=== PATIENT | female | born 1950 | race Caucasian/White ===

== ENCOUNTER → 2017-06-21 08:08 | Outpatient (POV) | payer MEDICARE, OTHER, SELFPAY | PROVIDERS: Family Provider Emergency Medicine; PCP Nurse Practitioner Family; Visit Provider Specialist | DX: G56.02 Carpal tunnel syndrome, left upper limb (principal) | CPT/HCPCS: 95886; 95908 ==

== ENCOUNTER 2017-07-05 19:25 | Inpatient (IN) | payer OTHER, MEDICARE, SELFPAY ==
[2017-07-05 19:29] VITALS: BP 133/70; PULSE 77; RESP 18; TEMP 36.9; O2SAT 81; BMI 26.4
--- NOTE | 2017-07-05 19:51 | XR_ITS ---
XR chest 2V HISTORY: ITS.REASON: FEVER , cough, congestion, smoker ORDERING PHYSICIAN: Emeka Dill MD PATIENT AGE: 67 years COMPARISON: 11/12/2016 FINDINGS: Unremarkable heart size. Cardiac pacemaker device remains in place. There is chronic coarsening of the bronchovascular markings which are somewhat more prominent compared to 11/12/2016 and could be due to an element of underlying CHF. In addition, there is increased density in the right lung base consistent with an area of infiltrate/pneumonia. There are small bilateral pleural effusions. No acute bony anomalies. There is mild kyphosis of the upper thoracic spine. IMPRESSION: 1. Right lower lobe pneumonia. 2. COPD with chronic changes with suspected superimposed CHF.
[2017-07-05 20:20] VITALS: PULSE 70
[2017-07-05 20:32] LABS: Basophils # 0.1 K/mm3 (0-0.2); Basophils % 0.3 % (0.1-2.0); Eosinophils # 0.4 K/mm3 (0.0-0.4); Eosinophils % 2.1 % (0.1-12.0); Hematocrit 42.9 % (37.0-47.0); Hemoglobin 13.2 g/dL (12.2-16.2); Lymphocytes # 1.5 K/mm3 (0.7-4.5); Mean Corpuscular HGB Conc 30.8 g/dL (31.8-35.4); Mean Corpuscular Hemoglobin 25.2 pg (27.0-31.2); Mean Corpuscular Volume 81.8 fl (81-99); Mean Platelet Volume 8.9 fl (7.4-10.4); Monocytes # 1.2 K/mm3 (0.1-1.0); Monocytes % 6.3 % (1.7-9.3); Neutrophils # 15.6 K/mm3 (1.8-7.8); Neutrophils % 83.4 % (37.0-80.0); Platelet Count 289 K/mm3 (142-424); Red Blood Count 5.25 M/mm3 (4.20-5.40); Red Cell Distribution Width 14.8 % (11.5-17.5); White Blood Count 18.7 K/mm3 (4.8-10.8)
[2017-07-05 20:35] LABS: MANUAL DIFFERENTIAL MANUAL DIFFERENTIAL (MANUAL DIFF)
--- NOTE | 2017-07-05 20:43 | PC.NURSE ---
RN gave neb. tx to pt.
[2017-07-05 20:58] LABS: Microscopic, Urine URINE MICROSCOPIC (MICROSCOPIC)
[2017-07-05 21:00] LABS: Alanine Aminotransferase 15 U/L (12-78); Albumin Level 2.4 gm/dL (3.4-5.0); Albumin/Globulin Ratio 0.5 (1.1-1.8); Alkaline Phosphatase 165 U/L (46-116); Anion Gap 10.7 mEq/L (5-15); Bilirubin,Total 0.3 mg/dL (0.2-1.0); Blood Urea Nitrogen 14 mg/dL (7-18); CKMB Relative Index 0.5 U/L (0-4.0); Calcium 8.7 mg/dL (8.5-10.1); Carbon Dioxide 30 mmol/L (21.0-32.0); Chloride 97 mmol/L (98-107); Creatine Kinase 190 U/L (26-192); Creatine Kinase MB 0.9 mg/ml (0.0-3.6); Creatinine Clearance Estimated 53 mL/min (0-300); Creatinine,Serum 0.98 mg/dL (0.55-1.02); Estimated Glomerular Filt Rate 57 ml/min (>60); GFR (African American) 69 ML/MIN (>60); Globulin 4.9 gm/dl (1.3-3.2); Glucose 134 mg/dL (74-106); Sodium 134 mmol/L (136-145); Total Protein,Serum 7.3 gm/dL (6.4-8.2); Troponin I < 0.02 ng/ml (0.00-0.06)
[2017-07-05 21:00] LABS: Appearance,Urine CLEAR (Clear); Bilirubin,Urine 1+ (Negative); Blood, Urine Negative (Negative); Color,Urine YELLOW (Yellow); Glucose,Urine (UA) Negative (Negative); Ketones,Urine Negative (Negative); Leukocyte Esterase,Urine Negative (Negative); Nitrate,Urine Negative (Negative); PH,Urine 5.5 (5.0-8.5); Protein,Urine TRACE (Negative); Urobilinogen,Urine 0.2 EU/dl (0.2)
[2017-07-05 21:04] LABS: Aspartate Amino Transferase 20 U/L (15-37); Potassium 3.7 mmoL/L (3.5-5.1)
[2017-07-05 21:08] LABS: Bacteria,Urine 2+ /lpf; Mucus,Urine 1+ /lpf
--- NOTE | 2017-07-05 21:08 | HMH.EDFEV ---
ED Disposition Clinical Impression: Community acquired pneumonia Qualifiers: Laterality: right Lung location: lower lobe of lung Qualified Code(s): J18.1 - Lobar pneumonia, unspecified organism COPD (chronic obstructive pulmonary disease) Qualifiers: COPD type: COPD with acute exacerbation Qualified Code(s): J44.1 - Chronic obstructive pulmonary disease with (acute) exacerbation Disposition: Admitted as Observation Condition on Discharge: Good Referrals: Efe Elizabeth APRN [Primary Care Provider] - - Critical Care Critical Care Time: No Attestation: On 07/05/17, the high probability of a clinically significant, sudden or life threatening deterioration of the following system(s) required my full and direct attention, intervention and personal management. The time I documented below is in addition to time spent performing reported procedures but includes the following listed in this critical care notation. Medical Decision Making - Medical Records Medical records reviewed: Yes: I reviewed the patient's medical records. Vital Signs: 07/05/17 19:29 07/05/17 20:20 Temperature 98.5 F Temperature Source Oral Pulse Rate 70 Pulse Rate [Right Brachial] 77 Respiratory Rate 18 Blood Pressure [Right Arm] 133/70 Blood Pressure Mean [Right Arm] 91 02 Sat by Pulse Oximetry 81 L Oxygen Delivery Method Room Air - Lab Data Lab results reviewed: Yes: I reviewed the patient's lab results. Lab Results 07/05/17 20:22: WBC 18.7 H, RBC 5.25, Hgb 13.2, Hct 42.9, MCV 81.8, MCH 25.2 L, MCHC 30.8 L, RDW 14.8, Plt Count 289, MPV 8.9, Neut % (Auto) 83.4 H, Lymph % (Auto) 8.0 L, [place] % (Auto) 6.3, Eos % (Auto) 2.1, Baso % (Auto) 0.3, Neut # (Auto) 15.6 H, Lymph # (Auto) 1.5, [place] # (Auto) 1.2 H, Eos # (Auto) 0.4, Baso # (Auto) 0.1 07/05/17 20:22: Sodium 134 L, Potassium 3.7, Chloride 97 L, Carbon Dioxide 30, Anion Gap 10.7, BUN 14, Creatinine 0.98, Estimated Creat Clear 53, Estimated GFR 57 L, Est GFR ( Amer) 69, Glucose 134 H, Calcium 8.7, Total Bilirubin 0.3, AST 20, ALT 15, Alkaline Phosphatase 165 H, Total Creatine Kinase 190, CK-MB (CK-2) 0.9, CK-MB (CK-2) Rel Index 0.5, Troponin I < 0.02, Total Protein 7.3, Albumin 2.4 L, Globulin 4.9 H, Albumin/Globulin Ratio 0.5 L 07/05/17 20:22: Lactic Acid 1.0 07/05/17 20:22: Influenza Type A Ag Negative, Influenza Type B Ag Negative 07/05/17 20:56: Urine Color Yellow, Urine Appearance Clear, Urine pH 5.5, Ur Specific [place] 1.020, Urine Protein Trace, Urine Glucose (UA) Negative, Urine Ketones Negative, Urine Blood Negative, Urine Nitrate Negative, Urine Bilirubin 1+ A, Urine Urobilinogen 0.2, Ur Leukocyte Esterase Negative, Urine RBC None, Urine WBC 3-5, Ur Squamous Epith Cells 10-20, Urine Bacteria 2+, Hyaline Casts 10-20, Urine Mucus 1+ Result diagrams: 07/05/17 20:22 07/05/17 20:22 Orders (Tests/Meds): ED MEDICATIONS Discontinued Medications Generic Name Dose Route Start Last Admin Trade Name Freq PRN Reason Stop Dose Admin Albuterol/Ipratropium 3 ml 07/05/17 19:51 07/05/17 20:21 Duoneb 3ml Neb IH 07/05/17 19:52 3 ml ONCE ONE Administration Sodium Chloride 1,000 mls @ 999 mls/hr 07/05/17 20:00 07/05/17 20:22 Sod Chlor 0.9% 1000ml Bag IV 07/05/17 21:00 999 mls/hr .Q1H1M GENNARO Administration ORDERS Category Date Time Status XR chest 2V Stat Exams 07/05/17 19:51 Taken Complete Blood Count Auto Diff Stat Lab 07/05/17 20:22 Results Urinalysis and Microscopic Stat Lab 07/05/17 20:56 Results Blood Culture Stat Micro 07/05/17 20:22 Received Sputum Culture & Gram Stain Stat Micro 07/05/17 20:25 Ordered ECG Request by /Nse Stat Y 07/05/17 19:51 Ordered - Radiology Data #1 Image(s): Chest Image Reviewed: Yes I reviewed the patient's radiology image Preliminary Findings: Abnormal (rt lower changes ) - ECG Data Tracing #1 I reviewed this ECG and interpreted as documented below: Normal Sinus Rhythm: Ye
--- NOTE | 2017-07-05 21:13 | ED_ITS ---
ED Disposition Clinical Impression: Community acquired pneumonia Qualifiers: Laterality: right Lung location: lower lobe of lung Qualified Code(s): J18.1 - Lobar pneumonia, unspecified organism COPD (chronic obstructive pulmonary disease) Qualifiers: COPD type: COPD with acute exacerbation Qualified Code(s): J44.1 - Chronic obstructive pulmonary disease with (acute) exacerbation Disposition: Admitted as Observation Condition on Discharge: Good Referrals: Efe Elizabeth APRN [Primary Care Provider] - - Critical Care Critical Care Time: No Attestation: On 07/05/17, the high probability of a clinically significant, sudden or life threatening deterioration of the following system(s) required my full and direct attention, intervention and personal management. The time I documented below is in addition to time spent performing reported procedures but includes the following listed in this critical care notation. Medical Decision Making - Medical Records Medical records reviewed: Yes: I reviewed the patient's medical records. Vital Signs: 07/05/17 19:29 07/05/17 20:20 Temperature 98.5 F Temperature Source Oral Pulse Rate 70 Pulse Rate [Right Brachial] 77 Respiratory Rate 18 Blood Pressure [Right Arm] 133/70 Blood Pressure Mean [Right Arm] 91 02 Sat by Pulse Oximetry 81 L Oxygen Delivery Method Room Air - Lab Data Lab results reviewed: Yes: I reviewed the patient's lab results. Lab Results 07/05/17 20:22: WBC 18.7 H, RBC 5.25, Hgb 13.2, Hct 42.9, MCV 81.8, MCH 25.2 L, MCHC 30.8 L, RDW 14.8, Plt Count 289, MPV 8.9, Neut % (Auto) 83.4 H, Lymph % ( Auto) 8.0 L, [place] % (Auto) 6.3, Eos % (Auto) 2.1, Baso % (Auto) 0.3, Neut # ( Auto) 15.6 H, Lymph # (Auto) 1.5, [place] # (Auto) 1.2 H, Eos # (Auto) 0.4, Baso # (Auto) 0.1 07/05/17 20:22: Sodium 134 L, Potassium 3.7, Chloride 97 L, Carbon Dioxide 30, Anion Gap 10.7, BUN 14, Creatinine 0.98, Estimated Creat Clear 53, Estimated GFR 57 L, Est GFR ( Amer) 69, Glucose 134 H, Calcium 8.7, Total Bilirubin 0.3, AST 20, ALT 15, Alkaline Phosphatase 165 H, Total Creatine Kinase 190, CK-MB (CK-2) 0.9, CK-MB (CK-2) Rel Index 0.5, Troponin I < 0.02, Total Protein 7.3, Albumin 2.4 L, Globulin 4.9 H, Albumin/Globulin Ratio 0.5 L 07/05/17 20:22: Lactic Acid 1.0 07/05/17 20:22: Influenza Type A Ag Negative, Influenza Type B Ag Negative 07/05/17 20:56: Urine Color Yellow, Urine Appearance Clear, Urine pH 5.5, Ur Specific [place] 1.020, Urine Protein Trace, Urine Glucose (UA) Negative, Urine Ketones Negative, Urine Blood Negative, Urine Nitrate Negative, Urine Bilirubin 1+ A, Urine Urobilinogen 0.2, Ur Leukocyte Esterase Negative, Urine RBC None, Urine WBC 3-5, Ur Squamous Epith Cells 10-20, Urine Bacteria 2+, Hyaline Casts 10-20, Urine Mucus 1+ Result diagrams: 07/05/17 20:22 07/05/17 20:22 Orders (Tests/Meds): ED MEDICATIONS Discontinued Medications Generic Name Dose Route Start Last Admin Trade Name Freq PRN Reason Stop Dose Admin Albuterol/Ipratropium 3 ml 07/05/17 19:51 07/05/17 20:21 Duoneb 3ml Neb IH 07/05/17 19:52 3 ml ONCE ONE Administration Sodium Chloride 1,000 mls @ 999 mls/hr 07/05/17 20:00 07/05/17 20:22 Sod Chlor 0.9% 1000ml Bag IV 07/05/17 21:00 999 mls/hr .Q1H1M GENNARO Administration ORDERS Category Date Time Status XR chest 2V Stat Exams 07/05/17 19:51
--- NOTE | 2017-07-05 21:17 | PC.NURSE ---
to admit patient
[2017-07-05 21:37] VITALS: BMI 26.2
[2017-07-05 21:48] LABS: Adenovirus,PCR Not Detected (NotDetected); Bordetella Pertussis Not Detected (NotDetected); Chlamydophila Pneumoniae, PCR Not Detected (NotDetected); Coronavirus 229E Not Detected (NotDetected); Coronavirus NL63 Not Detected (NotDetected); Coronavirus OC43 Not Detected (NotDetected); Coronovirus HKU1,PCR Not Detected (NotDetected); Human Metapneumovirus Not Detected (NotDetected); Influenza A, PCR Not Detected (NotDetected); Influenza AH1, 2009 Not Detected (NotDetected); Influenza AH1, PCR Not Detected (NotDetected); Influenza AH3,PCR Not Detected (NotDetected); Influenza B, PCR Not Detected (NotDetected); Mycoplasma Pneumoniae, PCR Not Detected (NotDected); Parainfluenza 1, PCR Not Detected (NotDetected); Parainfluenza 2, PCR Not Detected (NotDetected); Parainfluenza 3, PCR Not Detected (NotDetected); Parainfluenza 4, PCR Not Detected (NotDetected); Respiratory Syncytial Virus Not Detected (NotDetected); Rhinovirus/Enterovirus Not Detected (NotDetected)
[2017-07-05 22:04] VITALS: BP 152/75; PULSE 76; RESP 18; TEMP 37.2; O2SAT 94
[2017-07-05 22:55] VITALS: O2SAT 89
[2017-07-05 23:02] LABS: Eosinophils % 1 % (0-3); Lymphocytes % 12 % (10-50); Monocytes % 6 % (2-9); Neutrophils % 81 % (42-76); Platelet Estimate Normal; Total Cells Counted 100
[2017-07-05 23:03] LABS: Anisocytosis 1+; Hypochromasia 1+
[2017-07-06] VITALS (8 sets, daily range): BP systolic 112–129; BP diastolic 47–72; PULSE 60–72; RESP 18–22; TEMP 36.4–36.7; O2SAT 92–96
--- NOTE | 2017-07-06 04:30 | PC.NURSE ---
PT NEW ADMIT AT 2200. 2L PER NC WITH NO REPORTED SOB. PT RECEIVING STEROIDS AND ABX. PT UP TO BSC WITH STANDBY ASSIST. OCCASSIONAL COUGH NOTED.
[2017-07-06 06:01] LABS: POC Glucose,Bedside 166 mg/dL (70-110)
[2017-07-06 07:11] LABS: Basophils % 0.1 % (0.1-2.0); Eosinophils % 0.2 % (0.1-12.0); Hematocrit 37.9 % (37.0-47.0); Lymphocytes # 1.1 K/mm3 (0.7-4.5); Lymphocytes % 8.2 K/mm3 (10-50); Mean Corpuscular Hemoglobin 24.8 pg (27.0-31.2); Mean Corpuscular Volume 82.8 fl (81-99); Monocytes # 0.3 K/mm3 (0.1-1.0); Monocytes % 2.3 % (1.7-9.3); Neutrophils # 11.5 K/mm3 (1.8-7.8); Neutrophils % 89.2 % (37.0-80.0); Platelet Count 273 K/mm3 (142-424); Red Blood Count 4.58 M/mm3 (4.20-5.40); Red Cell Distribution Width 14.7 % (11.5-17.5); White Blood Count 12.9 K/mm3 (4.8-10.8)
[2017-07-06 07:24] LABS: Hemoglobin 11.5 g/dL (12.2-16.2)
[2017-07-06 07:25] LABS: Anion Gap 5.7 mEq/L (5-15); Blood Urea Nitrogen 15 mg/dL (7-18); Carbon Dioxide 32 mmol/L (21.0-32.0); Chloride 102 mmol/L (98-107); Creatinine Clearance Estimated 53 mL/min (0-300); Estimated Glomerular Filt Rate 72 ml/min (>60); GFR (African American) 87 ML/MIN (>60); Glucose 170 mg/dL (74-106); MANUAL DIFFERENTIAL MANUAL DIFFERENTIAL (MANUAL DIFF); Potassium 4.7 mmoL/L (3.5-5.1); Sodium 135 mmol/L (136-145)
--- NOTE | 2017-07-06 07:33 | HMH.PHAVTE ---
[facility] Pharmacy VTE Monitoring - Patient Demographics Admission date: 07/05/17 Report Date: 07/06/17 Time: 07:33 Allergies/Adverse Reactions: Patient Allergies codeine [CODEINE] Allergy (Unknown, Verified 07/05/17 19:56) NA-NAUSEA/VOMITING diphenhydramine [DIPHENHYDRAMINE] Allergy (Unknown, Verified 07/05/17 19:56) I-RASH Iodinated Contrast Media - Oral and [IODINATED CONTRAST MEDIA - ORAL AND] Allergy (Unknown, Verified 07/05/17 19:56) Difficulty Breathing Penicillins [PENICILLINS] Allergy (Unknown, Verified 07/05/17 19:56) RASH, TERESITAEF MAGDALENE PER DR. POWERS Sulfa (Sulfonamide Antibiotics) [SULFA (SULFONAMIDE ANTIBIOTICS)] Allergy (Unknown, Verified 07/05/17 19:56) NA-NAUSEA/VOMITING acetaminophen [From Percocet] Allergy (Verified 07/05/17 19:56) Rash aspirin Allergy (Verified 07/05/17 19:56) Rash fluconazole [From Diflucan] Allergy (Verified 07/05/17 19:56) Rash oxycodone [From Percocet] Allergy (Verified 07/05/17 19:56) Rash zolmitriptan [From Zomig] Allergy (Verified 07/05/17 19:56) Rash Height: 1.52 m Weight: 60.781 kg Patient Problems: Current Active Problems Community acquired pneumonia (Acute) COPD (chronic obstructive pulmonary disease) (Acute) - VTE Risk Labs: VTE Related Lab Results Hgb 11.5 g/dL (12.2-16.2) L D 07/06/17 06:54 Hct 37.9 % (37.0-47.0) 07/06/17 06:54 Plt Count 273 K/mm3 (142-424) 07/06/17 06:54 BUN 15 mg/dL (7-18) 07/06/17 06:54 Creatinine 0.80 mg/dL (0.55-1.02) 07/06/17 06:54 Estimated Creat Clear 53 mL/min (0-300) 07/06/17 06:54 Was VTE Risk Assessment Performed: Yes VTE Score: 10 VTE Risk Level: Moderate Risk Clinical Trial Participant: No - Prophylaxis VTE Prophylaxis Ordered?: Yes Types of VTE Prophylaxis: TEDS Knee High Location of Applied Device: Bilateral Lower Extremeties
--- NOTE | 2017-07-06 08:19 | CA_ITS ---
PROCEDURE: 2-D M-mode and color Doppler study INDICATIONS FOR THE TEST: Chest pain COPD+ Heart Murmur+ Tobacco Smoking+ Palpitations+ Fatigue+ Syncope Edema+ Hypertension+Diabetes Mellitus+ Rheumatic Fever SOB+LÓPEZ Obesity Hyperlipidemia Family History HD Additional History CHF, pacemaker PATIENT INFORMATION HEIGHT: 60 WEIGHT: 134 GENDER: Female B/P: 124/47 2-D/M-MODE INTERPRETATION: 2-D MEASUREMENTS OBSERVED VALUES IN CMS Right Ventricular Dimension (RVDd) 2.0 Interventricular Septum (Thickness)(IVsd) 0.8 Left Ventricular Internal Dimensions(LVIDd) 4.7 Left Ventricular Posterior Wall (Thickness)(LVPWd) 0.8 Aortic Root 2.7 Aortic Cusp Separation 1.7 Left Atrial Dimensions (LAD) 3.6 2D 1. Left atrium is mildly enlarged, left ventricle is normal size, there is no concentric left ventricular hypertrophy, visually estimated ejection fraction 55% with no obvious regional wall motion abnormality. 2. The right atrium is mildly enlarged, right ventricle is normal size and contractility, there is a pacemaker lead seen in the right atrium and right ventricle. 3. The aortic valve is minimally thickened and fibrosed. 4. The mitral and tricuspid valvular grossly normal. 5. The pulmonic valve is poorly visualized. 6. No significant pericardial effusion noted. DOPPLER INTERROGATION: Doppler interrogation of the aortic, mitral and tricuspid valvular presence of mild mitral and tricuspid regurgitation, calculated right ventricular systolic pressure is 47 mmHg consistent with moderate pulmonary hypertension, grade 1 diastolic dysfunction seen with tissue Doppler evidence of raised left atrial pressure. CONCLUSION: 1. Mild biatrial enlargement, normal left ventricular size, visually estimated ejection fraction 55% with no obvious regional wall motion abnormality, grade 1 diastolic dysfunction seen with tissue Doppler evidence of raised left atrial pressure. 2. Mild mitral and tricuspid regurgitation, calculated right ventricular systolic pressure is 47 mmHg consistent with moderate pulmonary hypertension. 3. No significant pericardial effusion noted.
[2017-07-06 08:45] LABS: CKMB Relative Index 0.6 U/L (0-4.0); Creatine Kinase 78 U/L (26-192); Creatine Kinase MB 0.5 mg/ml (0.0-3.6); Troponin I < 0.02 ng/ml (0.00-0.06)
[2017-07-06 13:24] LABS: Lymphocytes % 5 % (10-50); Monocytes % 1 % (2-9); Neutrophils % 94 % (42-76); Platelet Estimate Normal; RBC Morphology Normal; Total Cells Counted 100
--- NOTE | 2017-07-06 13:56 | HMH.HP ---
*Admission Date: 07/05/17 *Chief complaint: sob *History of present illness: 67 yr old female presents to ed with c/o of sob and fever for one week. Pt reports hx of copd. Pt admitted for pneumonia and copd. [facility] History Medical History: Reports:: Anxiety, Arrhythmia, Congestive Heart Failure, Chronic Obstructive Pulmonary Disease (COPD), Coronary Artery Disease, Depression, Diabetes Mellitus Type 2, Heart Murmur, Hyperlipidemia, Hypertension, Internal Pacemaker, Palpitations, Peripheral Artery Disease, Peripheral Vascular Disease Denies:: Cancer, MRSA Other Medical History: Reports: Anemia, Arthritis, Cataracts, Hoarseness, Hormone Therapy, Sinus Problems Laterality Cases: Right: Carpal Tunnel Release, Bilateral: Other Other Surgeries: Yes: Cardiac Catheterization, Hysterectomy-Total, Pacemaker, Tubal Ligation, Other Amputation: No Fractures: No - *Social History Educational Level: Attended College Smoking Status: Current every day smoker Tobacco Type: cigarettes # Packs/Day (cigarettes): 1 #Yrs smoked (if former smoker): 36 Alcohol Intake: former Substance Use Type: denies use Occupational Status: disabled Housing: house Household Members: spouse, children - Psychiatric History Expresses thoughts of harming self/others: None Suicide Plan Description: No Plan Pschychiatric History:: Reports:: Anxiety, Depression *Family Hx:: Anemia, Asthma, Cancer, Coronary Artery Disease, Diabetes, Heart Attack, Hyperlipidemia, Hypertension, Kidney Disease, Stroke Review of Systems - Review of Systems Review of systems:: pertinent systems reviewed and negative unless documented below - Constitutional Reports body ache(s), Reports chills, Reports fever(s) - Eyes Denies change in vision - ENT Denies change in voice - *Cardiovascular Reports shortness of breath, Denies chest pain at rest, Denies chest pain with activity - *Respiratory Reports change in phlegm color, Reports chest congestion, Reports cough, Reports shortness of breath, Reports shortness of breath with activity - *Gastrointestinal Denies pain with swallowing - *Musculoskeletal Denies neck pain - *Neurologic Denies seizure-like activity - Psychiatric Denies lack of enjoyment - Endocrine Denies excessive sweating - Hematologic/Lymphatic Denies enlarged lymph nodes - Allergic/Immunologic Denies lip swelling Meds Home Medications Medication Instructions Recorded Confirmed Type albuterol sulfate HFA 90 2 puff INHALATION Q6H 05/05/17 07/05/17 History mcg/actuation aerosol inhaler aspirin 81 mg tablet,delayed 81 mg PO QDAY 05/05/17 07/05/17 History release conjugated estrogens 0.625 mg 0.625 mg PO DAILY tab 05/05/17 07/06/17 History tablet furosemide 20 mg tablet 20 mg PO DAILY 05/05/17 07/06/17 History ipratropium-albuterol 0.5 mg-3 3 ml INHALATION QID ml 05/05/17 07/05/17 History mg(2.5 mg base)/3 mL nebulization soln lisinopril 20 mg tablet 20 mg PO DAILY 05/05/17 07/06/17 History loratadine 10 mg disintegrating 10 mg PO DAILY 05/05/17 07/06/17 History tablet metformin 500 mg tablet 500 mg PO BID 05/05/17 07/05/17 History nicotine 21 mg/24 hr daily 21 mg TRANSDERMA ONCE 05/05/17 07/05/17 History transdermal patch omeprazole 40 mg capsule,delayed 40 mg PO DAILY 05/05/17 07/06/17 History release ranitidine 150 mg capsule 150 mg PO BID cap 05/05/17 07/05/17 History sertraline 50 mg tablet 50 mg PO DAILY 05/05/17 07/06/17 History tizanidine 4 mg tablet 4 mg PO BID PRN tab 05/05/17 07/05/17 History umeclidinium 62.5 mcg/actuation 1 inh INHALATION QDAY 05/05/17 07/05/17 History blister powder for inhalation dilTIAZem HCl [Dilt-Xr] 120 mg PO DAILY 07/06/17 07/06/17 History Allergies Allergy/AdvReac Type Severity Reaction Status Date / Time codeine [CODEINE] Allergy Unknown NA-NAUSEA/V Verified 07/05/17 19:56 OMITING diphenhydramine Allergy Unknown I-RASH Verified 07/05/17 19:56 [DIPHENHYDRAMINE] I
--- NOTE | 2017-07-06 14:13 | P.HP_ITS ---
*Admission Date: 07/05/17 *Chief complaint: sob *History of present illness: 67 yr old female presents to ed with c/o of sob and fever for one week. Pt reports hx of copd. Pt admitted for pneumonia and copd. [facility] History Medical History: Reports:: Anxiety, Arrhythmia, Congestive Heart Failure, Chronic Obstructive Pulmonary Disease (COPD), Coronary Artery Disease, Depression, Diabetes Mellitus Type 2, Heart Murmur, Hyperlipidemia, Hypertension , Internal Pacemaker, Palpitations, Peripheral Artery Disease, Peripheral Vascular Disease Denies:: Cancer, MRSA Other Medical History: Reports: Anemia, Arthritis, Cataracts, Hoarseness, Hormone Therapy, Sinus Problems Laterality Cases: Right: Carpal Tunnel Release, Bilateral: Other Other Surgeries: Yes: Cardiac Catheterization, Hysterectomy-Total, Pacemaker, Tubal Ligation, Other Amputation: No Fractures: No - *Social History Educational Level: Attended College Smoking Status: Current every day smoker Tobacco Type: cigarettes # Packs/Day (cigarettes): 1 #Yrs smoked (if former smoker): 36 Alcohol Intake: former Substance Use Type: denies use Occupational Status: disabled Housing: house Household Members: spouse, children - Psychiatric History Expresses thoughts of harming self/others: None Suicide Plan Description: No Plan Pschychiatric History:: Reports:: Anxiety, Depression *Family Hx:: Anemia, Asthma, Cancer, Coronary Artery Disease, Diabetes, Heart Attack, Hyperlipidemia, Hypertension, Kidney Disease, Stroke Review of Systems - Review of Systems Review of systems:: pertinent systems reviewed and negative unless documented below - Constitutional Reports body ache(s), Reports chills, Reports fever(s) - Eyes Denies change in vision - ENT Denies change in voice - *Cardiovascular Reports shortness of breath, Denies chest pain at rest, Denies chest pain with activity - *Respiratory Reports change in phlegm color, Reports chest congestion, Reports cough, Reports shortness of breath, Reports shortness of breath with activity - *Gastrointestinal Denies pain with swallowing - *Musculoskeletal Denies neck pain - *Neurologic Denies seizure-like activity - Psychiatric Denies lack of enjoyment - Endocrine Denies excessive sweating - Hematologic/Lymphatic Denies enlarged lymph nodes - Allergic/Immunologic Denies lip swelling Meds Home Medications Medication Instructions Recorded Confirmed Type albuterol sulfate HFA 90 2 puff INHALATION Q6H 05/05/17 07/05/17 History mcg/actuation aerosol inhaler aspirin 81 mg tablet,delayed 81 mg PO QDAY 05/05/17 07/05/17 History release conjugated estrogens 0.625 mg 0.625 mg PO DAILY tab 05/05/17 07/06/17 History tablet furosemide 20 mg tablet 20 mg PO DAILY 05/05/17 07/06/17 History ipratropium-albuterol 0.5 mg-3 3 ml INHALATION QID ml 05/05/17 07/05/17 History mg(2.5 mg base)/3 mL nebulization soln lisinopril 20 mg tablet 20 mg PO DAILY 05/05/17 07/06/17 History loratadine 10 mg disintegrating 10 mg PO DAILY 05/05/17 07/06/17 History tablet metformin 500 mg tablet 500 mg PO BID 05/05/17 07/05/17 History nicotine 21 mg/24 hr daily 21 mg TRANSDERMA ONCE 05/05/17 07/05/17 History transdermal patch omeprazole 40 mg capsule,delayed 40 mg PO DAILY 05/05/17 07/06/17 History release ranitidine 150 mg capsule 150 mg PO BID cap 05/05/17 07/05/17 History
[2017-07-06 16:44] LABS: POC Glucose,Bedside 218 mg/dL (70-110)
[2017-07-06 16:48] LABS: POC Glucose,Bedside 371 mg/dL (70-110)
--- NOTE | 2017-07-06 22:16 | PC.NURSE ---
ATTEMPTED TO NOTIFY MD AT 2156 AND 2215 REGARDING PT REQUEST OF COUGH MEDICATION. AT 2215 MD WAS CONTACTED AND STATED I WILL LOOK AT HER CHART AND MAY PUT SOMETHING IN.
[2017-07-07] VITALS: BP 148/70; PULSE 60; RESP 20; TEMP 36.8; O2SAT 93
[2017-07-07 01:09] LABS: POC Glucose,Bedside 243 mg/dL (70-110)
[2017-07-07 04:00] VITALS: BP 159/69; PULSE 60; RESP 20; TEMP 36.4; O2SAT 94
--- NOTE | 2017-07-07 04:02 | PC.NURSE ---
REQUESTED COUGH MEDICATION, MD CONTACTED REGARDING REQUEST OF COUGH MEDICATION, NO NEW ORDERS WERE GIVEN. 3LNC TOLERATED WELL. SCATTERED WHEEZES NOTED PER AUSCULTATION OF LUNG SOUNDS. SLEPT WELL. VSS. WILL CONTINUE TO MONITOR.
[2017-07-07 06:46] LABS: POC Glucose,Bedside 212 mg/dL (70-110)
--- NOTE | 2017-07-07 07:21 | PC.NURSE ---
REPORT GIVEN TO HANNAH RN
[2017-07-07 08:00] VITALS: BP 163/75; PULSE 60; RESP 20; TEMP 36.6; O2SAT 93
--- NOTE | 2017-07-07 08:25 | P.PN_ITS ---
Internal Medicine - PN: Subj *Date: 07/07/17 *Time: 08:21 Interval history: pt with sob this ambut no chest pain Exam Vital signs and Labs for Last 24 Hours: Temp Pulse Resp BP Pulse Ox 97.9 F 60 20 163/75 93 L 07/07/17 08:06 07/07/17 08:06 07/07/17 08:06 07/07/17 08:06 07/07/17 08:06 Laboratory Results - last 24 hr 07/06/17 06:54: Total Counted 100, Neutrophils % (Manual) 94 H, Lymphocytes % ( Manual) 5 L, Monocytes % (Manual) 1 L, Platelet Estimate Normal, RBC Morphology Normal 07/06/17 06:54: Total Creatine Kinase 78, CK-MB (CK-2) 0.5 D, CK-MB (CK-2) Rel Index 0.6, Troponin I < 0.02 07/06/17 11:22: POC Glucose 218 07/06/17 16:29: POC Glucose 371 07/06/17 21:26: POC Glucose 243 07/07/17 06:36: POC Glucose 212 I & O for Last 24 hours: Intake & Output 07/04/17 07/05/17 07/06/17 07/07/17 11:59 11:59 11:59 11:59 Intake Total 689 / 689 1851 / 1851 Output Total 500 / 500 Balance 689 / 689 1351 / 1351 Weight 134 lb - Constitutional no acute distress - *Routine HEENT Exam Head: Present: normocephalic Eye: Present: EOMI, PERRL ENT: Present: mucous membranes dry - *Routine Neck Exam Absent: JVD - *Routine Respiratory Exam Present: decreased breath sounds - *Routine Cardiovascular Exam Present: RRR, murmur - *Routine Extremities Exam Absent: calf tenderness - *Routine Skin Exam Present: intact - *Routine Neurological Exam Present: alert, oriented X3, CN II-XII intact - Routine Psychiatric Exam Present: normal affect Assessment and Plan (1) COPD (chronic obstructive pulmonary disease) Current visit: Yes Status: Acute Qualifiers: COPD type: COPD with acute exacerbation Qualified Code(s): J44.1 - Chronic obstructive pulmonary disease with (acute) exacerbation Category: Medical Code(s): J44.9 - Chronic obstructive pulmonary disease, unspecified (2) Community acquired pneumonia Current visit: Yes Status: Acute Qualifiers: Laterality: right Lung location: lower lobe of lung Qualified Code(s): J18.1 - Lobar pneumonia, unspecified organism Category: Medical Code(s): J18.9 - Pneumonia, unspecified organism
[2017-07-07 08:59] VITALS: PULSE 60; RESP 20; O2SAT 93
--- NOTE | 2017-07-07 10:40 | PC.NURSE ---
PT ABULATED FROM CHAIR TO BED; PT IN BED ASLEEP DURING 1000 PT CHECK.
[2017-07-07 11:23] LABS: POC Glucose,Bedside 172 mg/dL (70-110)
[2017-07-07 12:00] VITALS: BP 153/79; PULSE 73; RESP 18; TEMP 37; O2SAT 93
[2017-07-07 16:00] VITALS: BP 175/81; PULSE 74; RESP 22; TEMP 36.7; O2SAT 93
[2017-07-07 16:35] LABS: POC Glucose,Bedside 221 mg/dL (70-110)
--- NOTE | 2017-07-07 18:27 | [facility].DCSUM ---
General - General Admission date: 07/05/17 Discharge date: 07/07/17 HPI HPI: 67 yr old female presents to ed with c/o of sob and fever for one week. Pt reports hx of copd. Pt admitted for pneumonia and copd. Hospital Course Hospital Course: iv antibotics, monitor of labs echo :CONCLUSION: 1. Mild biatrial enlargement, normal left ventricular size, visually estimated ejection fraction 55% with no obvious regional wall motion abnormality, grade 1 diastolic dysfunction seen with tissue Doppler evidence of raised left atrial pressure. 2. Mild mitral and tricuspid regurgitation, calculated right ventricular systolic pressure is 47 mmHg consistent with moderate pulmonary hypertension. 3. No significant pericardial effusion noted. chest x ray IMPRESSION: 1. Right lower lobe pneumonia. 2. COPD with chronic changes with suspected superimposed CHF. Objective Vital signs: Temp Pulse Resp BP Pulse Ox 98.1 F 74 22 175/81 93 L 07/07/17 16:00 07/07/17 16:00 07/07/17 16:00 07/07/17 16:00 07/07/17 16:00 no acute distress - *Routine HEENT Exam Head: Present: normocephalic Eye: Present: PERRL ENT: Present: mucous membranes moist - *Routine Neck Exam Present: supple, full ROM, carotid bruit - *Routine Respiratory Exam Present: CTA bilaterally - *Routine Cardiovascular Exam Present: RRR, murmur - *Routine Abdominal Exam Present: soft, normoactive bowel sounds - *Routine Skin Exam Present: intact - *Routine Neurological Exam Present: alert, oriented X3, CN II-XII intact - Routine Psychiatric Exam Present: normal affect, normal thought process Results Labs on day of discharge: Labs from last 24 hours 07/07/17 07/07/17 07/07/17 16:14 11:08 06:36 POC Glucose 221 172 212 07/06/17 21:26 POC Glucose 243 DS: Diagnosis - Discharge Diagnosis (1) COPD (chronic obstructive pulmonary disease) Status: Acute (2) Community acquired pneumonia Status: Acute Discharge Plan - Patient Discharge Instructions ACTIVITY: Continue current activity DIET: continue same diet Patient Instructions: DI for Chronic Obstructive Pulmonary Disease, DI for Pneumonia -- Adult - Follow up Plan Follow up with: Emeka Dill MD [Emergency Provider] - 1 week Disposition: Home, Self-[facility] Medications: Home Medications Medication Instructions Recorded Confirmed Type albuterol sulfate HFA 90 2 puff INHALATION Q6H 05/05/17 07/05/17 History mcg/actuation aerosol inhaler aspirin 81 mg tablet,delayed 81 mg PO QDAY 05/05/17 07/05/17 History release conjugated estrogens 0.625 mg 0.625 mg PO DAILY tab 05/05/17 07/06/17 History tablet furosemide 20 mg tablet 20 mg PO DAILY 05/05/17 07/06/17 History ipratropium-albuterol 0.5 mg-3 3 ml INHALATION QID ml 05/05/17 07/05/17 History mg(2.5 mg base)/3 mL nebulization soln lisinopril 20 mg tablet 20 mg PO DAILY 05/05/17 07/06/17 History loratadine 10 mg disintegrating 10 mg PO DAILY 05/05/17 07/06/17 History tablet metformin 500 mg tablet 500 mg PO BID 05/05/17 07/05/17 History nicotine 21 mg/24 hr daily 21 mg TRANSDERMA ONCE 05/05/17 07/05/17 History transdermal patch omeprazole 40 mg capsule,delayed 40 mg PO DAILY 05/05/17 07/06/17 History release ranitidine 150 mg capsule 150 mg PO BID cap 05/05/17 07/05/17 History sertraline 50 mg tablet 50 mg PO DAILY 05/05/17 07/06/17 History tizanidine 4 mg tablet 4 mg PO BID PRN tab 05/05/17 07/05/17 History umeclidinium 62.5 mcg/actuation 1 inh INHALATION QDAY 05/05/17 07/05/17 History blister powder for inhalation dilTIAZem HCl [Dilt-Xr] 120 mg PO DAILY 07/06/17 07/06/17 History Prescriptions/Medication Reconciliation: New Azithromycin [Zithromax 250mg tab] 250 mg PO DIRECTED #6 tab predniSONE [Prednisone 20mg Tab] 20 mg PO BID 5 Days #10 tab Continue loratadine 10 mg disintegrating tablet 10 mg PO DAILY aspirin 81 mg
== END 2017-07-07 19:15 | disposition home or self-care (01) | DRG 190 ==
LOC: ER 19:37 → 2ND 21:22
PROVIDERS: Admitting Provider Emergency Medicine; Emergency Provider Emergency Medicine; Family Provider Emergency Medicine; PCP Nurse Practitioner Family; Visit Provider Emergency Medicine
DX: J18.9 Pneumonia, unspecified organism (principal); J44.0 Chronic obstructive pulmonary disease with (acute) lower respiratory infection; I50.9 Heart failure, unspecified; J44.1 Chronic obstructive pulmonary disease with (acute) exacerbation; I25.10 Atherosclerotic heart disease of native coronary artery without angina pectoris; Z95.0 Presence of cardiac pacemaker; E11.9 Type 2 diabetes mellitus without complications
CPT/HCPCS: 71046; 80048; 80053; 81001; 82550; 82553; 82962; 83605; 84484; 85007; 85025; 87040; 87070; 87077; 87086; 87184; 87205; 87275; 87276; 87486; 87581; 87633; 87798; 93005; 93306; 94640; 94761; 96365; 99284; J0456

== ENCOUNTER → 2017-07-26 08:03 | Outpatient (POV) | payer MEDICARE, OTHER, SELFPAY | PROVIDERS: Family Provider Emergency Medicine; Visit Provider Specialist | DX: R47.01 Aphasia (principal) | CPT/HCPCS: 95819 ==

== ENCOUNTER → 2017-07-26 09:54 | Outpatient (CLI) | payer MEDICARE, OTHER, SELFPAY ==
--- NOTE | 2017-07-26 09:56 | CT_ITS ---
CT head/brain wo con HISTORY: Seizures, aphasia ORDERING PHYSICIAN: Mariposa Krishnamurthy MD PATIENT AGE: 67 years COMPARISON: None TECHNIQUE: Axial images obtained without contrast. Brain and bone windows reviewed. All CT scans at the facility use one or more dose reduction, viz: automated exposure control; ma/kV adjustment per patient size (including targeted exams where dose is matched to indication; i.e. head); or iterative reconstruction technique. FINDINGS: No midline shift, mass effect, intracranial hemorrhage, hydrocephalus, or extra-axial fluid collection is evident. There is generalized atrophy with periventricular hypoattenuation consistent with ischemic gliotic change from small vessel disease. The calvarium has an unremarkable appearance. No mastoid effusion. No sinus air-fluid levels.. IMPRESSION: 1. No acute finding. 2. Periventricular ischemic gliotic change from small vessel disease. 3. There is no evidence of intracranial hemorrhage, focal mass, or acute territorial infarction. A negative CT does not exclude an acute CVA. A follow-up head CT or MRI is recommended if neurological symptoms persist .
--- NOTE | 2017-07-26 10:17 | CI_ITS ---
Cerebrovascular Exam Indications: 435.9 Unspecified transient cerebral ischemia. 781.2 Abnormality of gait. 780.2 Syncope and collapse. IMPRESSIONS 1. The bilateral vertebral arteries are patent with normal antegrade flow. 2. Study suggests less than 20% stenosis involving the right internal carotid artery and the left internal carotid artery. 3. Tortuous carotid arteries seen bilaterally. History: Risk factors: Current tobacco use. Hypertension. Hyperlipidemia. Carotid duplex study. Complete study and Doppler flow study including spectral analysis, color and salcido scale imaging. Height: Height: 152.4cm. Height: 60in. Weight: Weight: 61.7kg. Weight: 135.7lb. Body mass index: BMI: 26.6kg/m^2. Body surface area: BSA: 1.63m^2. Location: Vascular laboratory. Patient status: Outpatient. Tables: Arterial flow: + +--------+--------+ Location V sys V ed + +--------+--------+ Right CCA - proximal 57.4cm/s 11.8cm/s + +--------+--------+ Right CCA - distal 61.3cm/s 18.1cm/s + +--------+--------+ Right ECA 96.6cm/s -------- + +--------+--------+ Right ICA - proximal 74.6cm/s 16.5cm/s + +--------+--------+ Right ICA - mid 60.5cm/s 17.3cm/s + +--------+--------+ Right ICA - distal 54.2cm/s 14.9cm/s + +--------+--------+ Right vertebral 37.7cm/s -------- + +--------+--------+ Left CCA - proximal 69.1cm/s 16.5cm/s + +--------+--------+ Left CCA - distal 70.7cm/s 17.3cm/s + +--------+--------+ Left ECA 62.1cm/s -------- + +--------+--------+ Left ICA - proximal 65.2cm/s 16.5cm/s + +--------+--------+ Left ICA - mid 85.6cm/s 23.6cm/s + +--------+--------+ Left ICA - distal 88.7cm/s 26.4cm/s + +--------+--------+ Left vertebral 30.6cm/s -------- + +--------+--------+ Velocity ratios: + + + + + + Right, V sys Right, V ed Left, V sys Left, V ed + + + + + + Max ICA/dist CCA 1.22 0.96 1.25 1.53 + + + + + + (Report amended ) Electronically signed by: Alex Deleon [id number]
== END ==
PROVIDERS: Family Provider Emergency Medicine; Visit Provider Specialist
DX: R40.4 Transient alteration of awareness (principal); R47.01 Aphasia; R00.1 Bradycardia, unspecified; I10 Essential (primary) hypertension; I25.10 Atherosclerotic heart disease of native coronary artery without angina pectoris; J44.9 Chronic obstructive pulmonary disease, unspecified
CPT/HCPCS: 70450; 93880; 95819

== ENCOUNTER → 2017-09-22 15:12 | Outpatient (REF) | payer MEDICARE, OTHER, SELFPAY ==
[2017-09-22 18:13] LABS: Basophils # 0.1 K/mm3 (0-0.2); Basophils % 0.5 % (0.1-2.0); Eosinophils # 0.2 K/mm3 (0.0-0.4); Eosinophils % 1.1 % (0.1-12.0); Hematocrit 43.9 % (37.0-47.0); Hemoglobin 14.1 g/dL (12.2-16.2); Lymphocytes # 3.1 K/mm3 (0.7-4.5); Lymphocytes % 22.6 K/mm3 (10-50); Mean Corpuscular Hemoglobin 25.6 pg (27.0-31.2); Mean Corpuscular Volume 79.9 fl (81-99); Mean Platelet Volume 9.3 fl (7.4-10.4); Monocytes # 0.8 K/mm3 (0.1-1.0); Monocytes % 5.5 % (1.7-9.3); Neutrophils # 9.7 K/mm3 (1.8-7.8); Neutrophils % 70.3 % (37.0-80.0); Platelet Count 332 K/mm3 (142-424); Red Blood Count 5.49 M/mm3 (4.20-5.40); Red Cell Distribution Width 16.6 % (11.5-17.5); White Blood Count 13.7 K/mm3 (4.8-10.8)
[2017-09-22 19:39] LABS: Hemoglobin A1C 6.3 % (0.0-7.0)
[2017-09-22 19:46] LABS: Alanine Aminotransferase 18 U/L (12-78); Albumin Level 3.4 gm/dL (3.4-5.0); Alkaline Phosphatase 159 U/L (46-116); Aspartate Amino Transferase 19 U/L (15-37); Bilirubin,Total 0.3 mg/dL (0.2-1.0); Blood Urea Nitrogen 9 mg/dL (7-18); Calcium 9.4 mg/dL (8.5-10.1); Carbon Dioxide 27 mmol/L (21.0-32.0); Chloride 98 mmol/L (98-107); Chol/HDL Ratio 7.7 (1-3.5); Cholesterol 325 mg/dL (140-200); Creatinine,Serum 0.94 mg/dL (0.55-1.02); Estimated Glomerular Filt Rate 60 ml/min (>60); GFR (African American) 72 ML/MIN (>60); Globulin 3.5 gm/dl (1.3-3.2); Glucose 97 mg/dL (74-106); HDL Cholesterol 42 mg/dL (29-89); LDL Cholesterol 233 mg/dL (0-130); Sodium 137 mmol/L (136-145); T4 (Thyroxine) 13.4 ug/dl (4.7-13.3); Thyroid Stimulating Hormone 4.23 uIU/ml (0.358-3.740); Total Protein,Serum 6.9 gm/dL (6.4-8.2); Triglycerides 248 mg/dL (30-200); VLDL Cholesterol 50 mg/dL (0-40)
[2017-09-24 20:10] LABS: Vitamin B12 363 pg/mL (232-1245); Vitamin D 25 Hydroxy 22.1 ng/mL (30.0-100.0)
== END ==
LOC: LAB 15:12
PROVIDERS: Visit Provider Nurse Practitioner Family
DX: M25.559 Pain in unspecified hip (principal); E11.9 Type 2 diabetes mellitus without complications; R05 Cough
CPT/HCPCS: 80053; 80061; 82607; 82652; 83036; 84436; 84443; 85025

== ENCOUNTER → 2017-09-23 11:58 | Outpatient (CLI) | payer MEDICARE, OTHER, SELFPAY ==
--- NOTE | 2017-09-23 12:00 | XR_ITS ---
XR chest 2V HISTORY: ITS.REASON: cough ORDERING PHYSICIAN: Efe Elizabeth PATIENT AGE: 67 years COMPARISON: 07/05/2017 FINDINGS: The cardiomediastinal silhouette and pulmonary vascularity are within normal limits. Cardiac pacemaker device remains in place. Previously noted coarsened interstitial markings have shown some improvement. There is a calcified granuloma in the right midlung. Chronic changes are present in the left lower lobe and right midlung. No lobar consolidation or collapse. There is mild kyphosis of the thoracic spine with mild wedging involving what appears to represent T5 which may be slightly greater when compared to the previous exam. IMPRESSION: 1. Chronic changes with improvement in the interstitial markings compared to the previous study. 2. Slight increase in wedging of T5 with loss of height anteriorly of approximately 40%
== END ==
PROVIDERS: PCP Nurse Practitioner Family; Visit Provider Nurse Practitioner Family
DX: J44.9 Chronic obstructive pulmonary disease, unspecified (principal)
CPT/HCPCS: 71046

== ENCOUNTER → 2017-10-01 10:34 | Outpatient (REF) | payer MEDICARE, OTHER, SELFPAY ==
[2017-10-01 13:29] LABS: Basophils # 0.1 K/mm3 (0-0.2); Basophils % 0.4 % (0.1-2.0); Eosinophils # 0.2 K/mm3 (0.0-0.4); Eosinophils % 1.9 % (0.1-12.0); Hematocrit 45.6 % (37.0-47.0); Hemoglobin 13.8 g/dL (12.2-16.2); Lymphocytes # 2.1 K/mm3 (0.7-4.5); Mean Corpuscular HGB Conc 30.2 g/dL (31.8-35.4); Mean Corpuscular Hemoglobin 25.2 pg (27.0-31.2); Mean Corpuscular Volume 83.2 fl (81-99); Mean Platelet Volume 8.6 fl (7.4-10.4); Monocytes # 0.8 K/mm3 (0.1-1.0); Monocytes % 6.6 % (1.7-9.3); Neutrophils # 9.1 K/mm3 (1.8-7.8); Neutrophils % 74.1 % (37.0-80.0); Platelet Count 275 K/mm3 (142-424); Red Blood Count 5.48 M/mm3 (4.20-5.40); Red Cell Distribution Width 16.3 % (11.5-17.5); White Blood Count 12.2 K/mm3 (4.8-10.8)
[2017-10-05 14:11] LABS: Amphetamine/Metha Screen,Urine Negative ng/mL (<1000); Barbiturates Screen,Urine Negative ng/mL (<200); Benzodiazepines Screen,Urine Negative ng/mL (200); Cannabinoid Screen,Urine Negative ng/mL (<50); Cocaine Screen,Urine Negative ng/g (<300); Methadone Screen,Urine Negative ng/mL (<300); Opiate Screen,Urine Positive ng/mL (<300); Phencyclidine Screen,Urine Negative ng/mL (<25)
== END ==
LOC: LAB 10:34
PROVIDERS: Visit Provider Nurse Practitioner Family
DX: D72.829 Elevated white blood cell count, unspecified (principal); R82.90 Unspecified abnormal findings in urine; Z79.899 Other long term (current) drug therapy
CPT/HCPCS: 80305; 85025; 87086

== ENCOUNTER 2018-04-09 17:23 | Inpatient (IN) ==
--- NOTE | 2018-04-09 18:07 | Emergency Department Note ---
ED Disposition Clinical Impression: Acute exacerbation of chronic obstructive airways disease, Tobacco use, Diabetes 1.5, managed as type 2 Community acquired pneumonia Qualifiers: Laterality: right Lung location: lower lobe of lung Qualified Code(s): J18.1 - Lobar pneumonia, unspecified organism Disposition: Admitted as Observation Condition on Discharge: Good - Critical Care Critical Care Time: No Attestation: On 04/09/18, the high probability of a clinically significant, sudden or life threatening deterioration of the following system(s) required my full and direct attention, intervention and personal management. The time I documented below is in addition to time spent performing reported procedures but includes the following listed in this critical care notation. Medical Decision Making - Medical Records Medical records reviewed: Yes: I reviewed the patient's medical records. - Lazaro Inquiry Pt receiving controlled substance: No Vital Signs: 04/09/18 17:23 04/09/18 18:19 04/09/18 18:53 Temperature 100.9 F H Temperature Source Oral Pulse Rate [Left Radial] 104 H 97 H 95 H Respiratory Rate 22 28 H 24 Blood Pressure [Right Arm] 124/82 133/73 153/61 H Blood Pressure Mean [Right Arm] 96 93 91 Blood Pressure Source [Right Arm] Automatic Cuff Automatic Cuff Automatic Cuff Blood Pressure Position [Right Arm] Sitting Sitting Sitting 02 Sat by Pulse Oximetry 84 L 93 L 93 L Oxygen Delivery Method Room Air Nasal Cannula Nasal Cannula Oxygen Flow Rate (LPM) 4 4 - Lab Data Lab results reviewed: Yes: I reviewed the patient's lab results. Result diagrams: 04/09/18 18:10 04/09/18 18:10 Orders (Tests/Meds): ED MEDICATIONS Generic Name Dose Route Start Last Admin Trade Name Freq PRN Reason Stop Dose Admin Ceftriaxone Sodium 1 gm/ 50 mls @ 100 mls/hr 04/09/18 18:15 04/09/18 18:26 Sodium Chloride IV 04/23/18 18:14 100 mls/hr Q24H GENNAOR Administration Protocol Azithromycin 500 mg/ Sodium 250 mls @ 250 mls/hr 04/09/18 18:15 Chloride IV 04/23/18 18:14 Q24H GENNARO Protocol Discontinued Medications Generic Name Dose Route Start Last Admin Trade Name Freq PRN Reason Stop Dose Admin Methylprednisolone Sodium Succinate 125 mg 04/09/18 18:05 04/09/18 18:08 Solu-Medrol 125mg/2ml Vial IV 04/09/18 18:06 125 mg ONCE ONE Administration ORDERS Category Date Time Status Blood Culture Stat Micro 04/09/18 18:10 Received Sputum Culture & Gram Stain Stat Micro 04/09/18 18:02 Ordered ABG [Arterial Blood Gas] Stat RT 04/09/18 18:02 Ordered ECG Request by /Marielos Stat Y 04/09/18 17:31 Ordered - Radiology Data #1 Image(s): Chest Image Reviewed: Yes I reviewed the patient's radiology image Preliminary Findings: Abnormal (copd/rt lower lobe) - ECG Data Tracing #1 Arrhythmias present: sinus tach, PVC's Ischemic changes: non-specific ST-T wave changes Resp/SOB HPI - General Chief Complaint: Shortness of Breath/Dyspnea Stated Complaint: SOB Time Seen by Provider: 04/09/18 17:30 Mode of Arrival: EMS Limitations: No Limitations Description of Symptoms (Recalled from ER Triage Doc. by RN): to ed per squad with c/o sob, fever, cough x 2 days seen yesterday in [facility] with same. pt states she was told to return if fever was 101. states fever of 101 today. pt with hx of copd wears o2 prn but has been using 24hrs. +cough with yellow sputum. pt given resp tx enroute with some relief. - History of Present Illness pt with hx of copd and tob use and waqs seen in the [facility] yesterday but has continued to have sx despite op treatment - she uses o2 at home MD Complaint: shortness of breath, cough Onset (ago): day(s) Severity: moderate Known history of: COPD Associated symptoms: fever, cough, wheezing Treatment prior to arrival: oxygen - Related Data Home oxygen amount: 2 liters Home Medications Medication Instructions Recorded Confirmed albuterol sulfate HFA 90 2 puff INHALATION Q6H 05/05/17 04/09/18 mcg/actuation aerosol inhaler aspirin 81 mg tablet,delayed 81 mg PO QDAY 05/05/17 04/09/18 release conjugated estrogens 0.625 mg 0.625 mg PO DAILY tab 05/05/17 04/09/18 tablet furosemide 20 mg tablet 20 mg PO DAILY 05/05/17 04/09/18 ipratropium-albuterol 0.5 mg-3 3 ml INHALATION QID ml 05/05/17 04/09/18 mg(2.5 mg base)/3 mL nebulization soln lisinopril 20 mg tablet 20 mg PO DAILY 05/05/17 04/09/18 loratadine 10 mg disintegrating 10 mg PO DAILY 05/05/17 04/09/18 tablet metformin 500 mg tablet 500 mg PO BID 05/05/17 04/09/18 nicotine 21 mg/24 hr daily 21 mg TRANSDERMA ONCE 05/05/17 04/09/18 transdermal patch umeclidinium 62.5 mcg/actuation 1 inh INHALATION QDAY 05/05/17 04/09/18 blister powder for inhalation hydrocodone 5 mg-acetaminophen 325 1 tab PO Q6H PRN 09/23/17 04/09/18 mg tablet Azithromycin [Z-Jostin 250mg Tab] 250 mg PO UD DOSE PK 04/09/18 04/09/18 Benzonatate [Tessalon Perle 100mg 100 mg PO TID 04/09/18 04/09/18 Cap] Ergocalciferol (Vitamin D2) 50,000 unit PO QWEEK 04/09/18 04/09/18 [Vitamin D2] Previous Rx's Medication Instructions Recorded hydroxyzine HCl 25 mg tablet 25 mg PO TID-QID PRN #90 tab 06/29/17 tizanidine 4 mg tablet 4 mg PO BID PRN #60 tab 01/27/18 diltiazem ER (XR/XT) 120 mg 120 mg PO DAILY #30 cap 01/30/18 capsule,extended release 24 hr, controlled omeprazole 40 mg capsule,delayed 40 mg PO DAILY #30 cap 01/30/18 release sertraline 50 mg tablet 50 mg PO DAILY #30 tab 01/30/18 promethazine 12.5 mg tablet 12.5 mg PO DAILY PRN #30 tab 02/22/18 Allergies Allergy/AdvReac Type Severity Reaction Status Date / Time codeine [CODEINE] Allergy Unknown NA-NAUSEA/V Verified 10/01/17 10:16 OMITING diphenhydramine Allergy Unknown I-RASH Verified 10/01/17 10:16 [DIPHENHYDRAMINE] Iodinated Contrast Media - Allergy Unknown Difficulty Verified 10/01/17 10:16 Oral and Breathing [IODINATED CONTRAST MEDIA - ORAL AND] Penicillins [PENICILLINS] Allergy Unknown RASH, Verified 10/01/17 10:[address] POWERS Sulfa (Sulfonamide Allergy Unknown NA-NAUSEA/V Verified 10/01/17 10:16 Antibiotics) OMITING [SULFA (SULFONAMIDE ANTIBIOTICS)] aspirin Allergy Rash Verified 10/01/17 10:16 fluconazole [From Diflucan] Allergy Rash Verified 10/01/17 10:16 oxycodone [From Percocet] Allergy Rash Verified 10/01/17 10:16 zolmitriptan [From Zomig] Allergy Rash Verified 10/01/17 10:16 [facility] History I have reviewed the patient's past medical history: Yes Medical History: Reports:: Anxiety, Arrhythmia, Congestive Heart Failure, Chronic Obstructive Pulmonary Disease (COPD), Coronary Artery Disease, Depression, Diabetes Mellitus Type 2, Heart Murmur, Hyperlipidemia, Hypertension, Internal Pacemaker, Palpitations, Peripheral Artery Disease, Peripheral Vascular Disease Denies:: Cancer, MRSA Other Medical History: Reports: Anemia, Arthritis, Cataracts, Hoarseness, Ho rmone Therapy, Sinus Problems Comment: TERESA, RLS, HEADACHES Laterality Cases: Right: Carpal Tunnel Release, Bilateral: Other Other Surgeries: Yes: Cardiac Catheterization, Cholecystectomy, Hysterectomy- Total, Pacemaker, Tubal Ligation, Other Amputation: No Fractures: No Comment: Gallbladder - Social History Smoking Status: Current every day smoker Tobacco Type: cigarettes # Packs/Day (cigarettes): 1 #Yrs smoked (if former smoker): 36 Alcohol Intake: never Alcohol Intake Frequency:: other Substance Use Type: denies use Occupational Status: disabled Housing: house Household Members: family - Psychiatric History Expresses thoughts of harming self/others: None Suicide Plan Description: No Plan Pschychiatric History:: Reports:: Anxiety, Depression Family Hx:: Anemia, Asthma, Cancer, Coronary Artery Disease, Diabetes, Heart Attack, Hyperlipidemia, Hypertension, Kidney Disease, Stroke ROS Obtained: Yes All systems reviewed & no additional complaints - Constitutional Constitutional: Reports as per HPI, Reports fever(s) - Eyes Eyes: Denies change in vision - ENT Ears, Nose, Mouth, and Throat: Denies sore throat - Cardiovascular Cardiovascular: Denies chest pain, Reports dyspnea - Respiratory Respiratory: Yes change in phlegm color, Yes cough, No coughing up blood - Gastrointestinal Gastrointestingal: Denies: abdominal pain - Genitourinary Female Genitourinary: Denies hematuria - Musculoskeletal Musculoskeletal: Denies joint pain, Denies neck pain - Integumentary/Breasts Skin/Breast: Denies rash - Neurologic Neurologic: Denies seizure-like activity Physical Exam - General General appearance: alert, in no apparent distress - Head Head exam: normocephalic - Eye Eye exam: Present: PERRL, EOMI. Absent: scleral icterus - ENT ENT exam: Present: mucous membranes dry - Neck Neck exam: Present: trachea midline - Respiratory Respiratory exam: Present: wheezes. Absent: respiratory distress - Cardiovascular Cardiovascular exam: Present: regular rate, systolic murmur, +S4 - Abdominal Exam Abdominal exam: Present: soft - Extremities Exam Extremities exam: Absent: calf tenderness - Neurological Exam Neurological exam: Present: alert, oriented X3, CN II-XII intact - Psychiatric Psychiatric exam: Present: normal affect - Skin Skin exam: Absent: rash
[2018-04-09 18:30] LABS: ABG Base Excess 2.5 mmol/L (-2.4-2.3); ABG HCO3 27.1 mmhg (22.0-26.0); ABG Oxygen Saturation 89 % (90-100); ABG PCO2 43.1 mmhg (35.0-45.0); ABG PH 7.42 mmol/L (7.35-7.45); ABG PO2 54.6 mmhg (80-100); ABG TCO2 28.4 mmhg (23-27); Allen's Test Y; Oxygen 4 %
[2018-04-09 18:35] LABS: Basophils % 0.2 % (0.1-2.0); Eosinophils # 0.1 K/mm3 (0.0-0.4); Eosinophils % 0.4 % (0.1-12.0); Hematocrit 36.2 % (37.0-47.0); Hemoglobin 11.3 g/dL (12.2-16.2); Lymphocytes # 1.7 K/mm3 (0.7-4.5); Lymphocytes % 8.7 % (10-50); Mean Corpuscular HGB Conc 31.1 g/dL (31.8-35.4); Mean Corpuscular Hemoglobin 22.7 pg (27.0-31.2); Mean Corpuscular Volume 72.8 fl (81-99); Mean Platelet Volume 7.9 fl (7.4-10.4); Monocytes % 5.1 % (1.7-9.3); Neutrophils # 16.2 K/mm3 (1.8-7.8); Neutrophils % 85.6 % (37.0-80.0); Platelet Count 240 K/mm3 (142-424); Red Blood Count 4.97 M/mm3 (4.20-5.40); Red Cell Distribution Width 18.2 % (11.5-17.5)
[2018-04-09 18:53] LABS: Alanine Aminotransferase 13 U/L (12-78); Albumin Level 2.8 gm/dL (3.4-5.0); Albumin/Globulin Ratio 0.6 (1.1-1.8); Alkaline Phosphatase 131 U/L (46-116); Anion Gap 12.7 mEq/L (5-15); Aspartate Amino Transferase 8 U/L (15-37); Bilirubin,Total 0.6 mg/dL (0.2-1.0); Blood Urea Nitrogen 14 mg/dL (7-18); Calcium 8.6 mg/dL (8.5-10.1); Carbon Dioxide 30 mmol/L (21.0-32.0); Chloride 99 mmol/L (98-107); Globulin 4.4 gm/dl (1.3-3.2); Glucose 118 mg/dL (74-106); Lymphocytes % 5 % (10-50); Monocytes % 3 % (2-9); Neutrophils % 82 % (42-76); Potassium 3.7 mmoL/L (3.5-5.1); Sodium 138 mmol/L (136-145); Total Cells Counted 100; Total Protein,Serum 7.2 gm/dL (6.4-8.2)
[2018-04-09 18:54] LABS: Anisocytosis 2+; Hypochromasia 3+
[2018-04-10 06:23] LABS: Eosinophils # 0.1 K/mm3 (0.0-0.4); Eosinophils % 0.6 % (0.1-12.0); Hematocrit 33.4 % (37.0-47.0); Lymphocytes # 0.7 K/mm3 (0.7-4.5); Lymphocytes % 4.7 % (10-50); Mean Corpuscular Hemoglobin 22.1 pg (27.0-31.2); Mean Corpuscular Volume 73.7 fl (81-99); Mean Platelet Volume 8.1 fl (7.4-10.4); Monocytes # 0.2 K/mm3 (0.1-1.0); Monocytes % 1.2 % (1.7-9.3); Neutrophils # 14.7 K/mm3 (1.8-7.8); Neutrophils % 93.5 % (37.0-80.0); Platelet Count 211 K/mm3 (142-424); Red Blood Count 4.53 M/mm3 (4.20-5.40); Red Cell Distribution Width 18.3 % (11.5-17.5); White Blood Count 15.7 K/mm3 (4.8-10.8)
[2018-04-10 06:35] LABS: Anion Gap 12.4 mEq/L (5-15); Calcium 8.3 mg/dL (8.5-10.1); Potassium 4.4 mmoL/L (3.5-5.1)
[2018-04-10 07:15] LABS: Hypochromasia 3+; Lymphocytes % 7 % (10-50); Neutrophils % 86 % (42-76); Polychromasia 1+; Total Cells Counted 100
--- NOTE | 2018-04-10 10:40 | Pharmacy Consult Notes ---
[facility] Pharmacy VTE Monitoring - Patient Demographics Admission date: 04/09/18 Report Date: 04/10/18 Time: 10:40 Allergies/Adverse Reactions: Patient Allergies codeine [CODEINE] Allergy (Unknown, Verified 10/01/17 10:16) NA-NAUSEA/VOMITING diphenhydramine [DIPHENHYDRAMINE] Allergy (Unknown, Verified 10/01/17 10:16) I-RASH Iodinated Contrast Media - Oral and [IODINATED CONTRAST MEDIA - ORAL AND] Allergy (Unknown, Verified 10/01/17 10:16) Difficulty Breathing Penicillins [PENICILLINS] Allergy (Unknown, Verified 10/01/17 10:16) RASH, JANNA DEL CASTILLO PER DR. POWERS Sulfa (Sulfonamide Antibiotics) [SULFA (SULFONAMIDE ANTIBIOTICS)] Allergy (Unkno wn, Verified 10/01/17 10:16) NA-NAUSEA/VOMITING aspirin Allergy (Verified 10/01/17 10:16) Rash fluconazole [From Diflucan] Allergy (Verified 10/01/17 10:16) Rash oxycodone [From Percocet] Allergy (Verified 10/01/17 10:16) Rash zolmitriptan [From Zomig] Allergy (Verified 10/01/17 10:16) Rash Height: 1.52 m Weight: 59.647 kg Patient Problems: Current Active Problems Acute exacerbation of chronic obstructive airways disease (Acute) Tobacco use (Acute) Diabetes 1.5, managed as type 2 (Acute) Community acquired pneumonia (Acute) - VTE Risk Labs: VTE Related Lab Results Hgb 10.0 g/dL (12.2-16.2) L D 04/10/18 06:00 Hct 33.4 % (37.0-47.0) L 04/10/18 06:00 Plt Count 211 K/mm3 (142-424) 04/10/18 06:00 BUN 15 mg/dL (7-18) 04/10/18 06:00 Creatinine 0.68 mg/dL (0.55-1.02) 04/10/18 06:00 Estimated Creat Clear 52 mL/min (50-200) 04/10/18 06:00 Was VTE Risk Assessment Performed: Yes VTE Score: 8 VTE Risk Level: Moderate Risk - Prophylaxis VTE Prophylaxis Ordered?: Yes Types of VTE Prophylaxis: TEDS Knee High Location of Applied Device: Bilateral Lower Extremeties - VTE Diagnosis Confirmed Treatment or plan recommended: Continue Current Treatment
--- NOTE | 2018-04-10 14:26 | History & Physical Report ---
*Admission Date: 04/09/18 *Chief complaint: sob *History of present illness: 67-year-old female presents to the ed per squad with c/o sob, fever, cough x 2 days seen yesterday in [facility] with same symptoms and pt states she was told to return if fever was 101. states fever of 101.7 today. pt with hx of copd wears o2 prn but has been using 24hrs. +cough with yellow sputum. Patient admitted with COPD and poss right lower lobe pneumonia. [facility] History I have reviewed the patient's past medical history: Yes Medical History: Reports:: Anxiety, Arrhythmia, Congestive Heart Failure, Chronic Obstructive Pulmonary Disease (COPD), Coronary Artery Disease, Depression, Diabetes Mellitus Type 2, Heart Murmur, Hyperlipidemia, Hypertension, Internal Pacemaker, Palpitations, Peripheral Artery Disease, Peripheral Vascular Disease Denies:: Cancer, MRSA Other Medical History: Reports: Anemia, Arthritis, Cataracts, Hoarseness, Hormone Therapy, Sinus Problems, Thyroid Disease Laterality Cases: Left: Total Hip Replacement, Right: Carpal Tunnel Release, Bilateral: Other Other Surgeries: Yes: Cardiac Catheterization, Cholecystectomy, Hysterectomy- Total, Pacemaker, Tubal Ligation, Other Amputation: No Fractures: No - *Social History Educational Level: Completed High School Smoking Status: Current every day smoker Tobacco Type: cigarettes # Packs/Day (cigarettes): 1 #Yrs smoked (if former smoker): 50 Alcohol Intake: never Alcohol Intake Frequency:: other Substance Use Type: denies use Occupational Status: disabled Housing: house Household Members: family - Psychiatric History Expresses thoughts of harming self/others: None Suicide Plan Description: No Plan Pschychiatric History:: Reports:: Anxiety, Depression *Family Hx:: Asthma, Cancer, Coronary Artery Disease, Diabetes, Heart Attack, Hyperlipidemia, Hypertension, Stroke, Tuberculosis Review of Systems - Review of Systems Review of systems:: pertinent systems reviewed and negative unless documented below - Constitutional Reports chills, Reports fever(s) - Eyes Denies change in vision - ENT Reports sore throat - *Cardiovascular Reports shortness of breath, Denies chest pain with activity - *Respiratory Reports change in phlegm color, Reports cough, Reports shortness of breath, Reports shortness of breath with activity - *Gastrointestinal Denies change in bowel habits, Denies nausea, Denies vomiting - *Genitourinary Denies vaginal discharge - *Musculoskeletal Denies neck pain - Integumentary/Breasts Denies rash - *Neurologic Denies abnormal movements, Denies seizure-like activity - Psychiatric Denies behavioral changes - Endocrine Denies flushing - Hematologic/Lymphatic Denies enlarged lymph nodes Meds Home Medications Medication Instructions Recorded Confirmed Type albuterol sulfate HFA 90 2 puff INHALATION Q6H 05/05/17 04/09/18 History mcg/actuation aerosol inhaler aspirin 81 mg tablet,delayed 81 mg PO DAILY 05/05/17 04/10/18 History release conjugated estrogens 0.625 mg 0.625 mg PO DAILY tab 05/05/17 04/09/18 History tablet furosemide 20 mg tablet 20 mg PO DAILY 05/05/17 04/09/18 History ipratropium-albuterol 0.5 mg-3 3 ml INHALATION QID ml 05/05/17 04/09/18 History mg(2.5 mg base)/3 mL nebulization soln lisinopril 20 mg tablet 20 mg PO DAILY 05/05/17 04/09/18 History loratadine 10 mg disintegrating 10 mg PO DAILY 05/05/17 04/09/18 History tablet metformin 500 mg tablet 500 mg PO BID 05/05/17 04/09/18 History nicotine 21 mg/24 hr daily 21 mg TRANSDERMA DAILY 05/05/17 04/10/18 History transdermal patch umeclidinium 62.5 mcg/actuation 1 puff INHALATION DAILY 05/05/17 04/10/18 History blister powder for inhalation hydrocodone 5 mg-acetaminophen 325 1 tab PO Q6H PRN 09/23/17 04/09/18 History mg tablet Azithromycin [Z-Jostin 250mg Tab] 250 mg PO UD DOSE PK 04/09/18 04/09/18 History Benzonatate [Tessalon Perle 100mg 100 mg PO TID 04/09/18 04/09/18 History Cap] Ergocalciferol (Vitamin D2) 50,000 unit PO WEEKLY 04/09/18 04/10/18 History [Vitamin D2] Allergies Allergy/AdvReac Type Severity Reaction Status Date / Time codeine [CODEINE] Allergy Unknown NA-NAUSEA/V Verified 10/01/17 10:16 OMITING diphenhydramine Allergy Unknown I-RASH Verified 10/01/17 10:16 [DIPHENHYDRAMINE] Iodinated Contrast Media - Allergy Unknown Difficulty Verified 10/01/17 10:16 Oral and Breathing [IODINATED CONTRAST MEDIA - ORAL AND] Penicillins [PENICILLINS] Allergy Unknown RASH, Verified 10/01/17 10:[address] [place] [address] POWERS Sulfa (Sulfonamide Allergy Unknown NA-NAUSEA/V Verified 10/01/17 10:16 Antibiotics) OMITING [SULFA (SULFONAMIDE ANTIBIOTICS)] aspirin Allergy Rash Verified 10/01/17 10:16 fluconazole [From Diflucan] Allergy Rash Verified 10/01/17 10:16 oxycodone [From Percocet] Allergy Rash Verified 10/01/17 10:16 zolmitriptan [From Zomig] Allergy Rash Verified 10/01/17 10:16 Exam Vital signs and Labs for Last 24 Hours: Temp Pulse Resp BP Pulse Ox 97.7 F 67 20 140/62 92 L 04/10/18 11:28 04/10/18 11:28 04/10/18 11:28 04/10/18 11:28 04/10/18 11:28 Laboratory Results - last 24 hr 04/09/18 18:10: WBC 19.0 H, RBC 4.97, Hgb 11.3 L, Hct 36.2 L, MCV 72.8 L, MCH 22.7 L, MCHC 31.1 L, RDW 18.2 H, Plt Count 240, MPV 7.9, Neut % (Auto) 85.6 H, Lymph % (Auto) 8.7 L, [place] % (Auto) 5.1, Eos % (Auto) 0.4, Baso % (Auto) 0.2, Neut # (Auto) 16.2 H, Lymph # (Auto) 1.7, [place] # (Auto) 1.0, Eos # (Auto) 0.1, Baso # (Auto) 0.0, Total Counted 100, Neutrophils % (Manual) 82 H, Band Neutrophils % 10.0 H, Lymphocytes % (Manual) 5 L, Monocytes % (Manual) 3, Platelet Estimate Normal, Hypochromasia 3+, Anisocytosis 2+, Microcytosis 3+ 04/09/18 18:10: Sodium 138, Potassium 3.7, Chloride 99, Carbon Dioxide 30, Anion Gap 12.7, BUN 14, Creatinine 0.84, Estimated Creat Clear 52, Estimated GFR 68, Est GFR ( Amer) 82, Glucose 118 H, Calcium 8.6, Total Bilirubin 0.6, AST 8 L, ALT 13, Alkaline Phosphatase 131 H, Troponin I < 0.02, Total Protein 7.2, Albumin 2.8 L, Globulin 4.4 H, Albumin/Globulin Ratio 0.6 L 04/09/18 18:10: Lactate 0.9 04/09/18 18:29: Specimen Source R/r, O2 % 4, ABG pH 7.42, ABG pCO2 43.1, ABG pO2 54.6 L, ABG HCO3 27.1 H, ABG Total CO2 28.4 H, ABG O2 Saturation 89 L, ABG Base Excess 2.5 H, Alex Test Y 04/09/18 21:40: POC Glucose 244 H 04/09/18 22:05: Troponin I < 0.02 04/10/18 00:30: Troponin I < 0.02 04/10/18 06:00: WBC 15.7 H, RBC 4.53, Hgb 10.0 L D, Hct 33.4 L, MCV 73.7 L, MCH 22.1 L, MCHC 30.0 L, RDW 18.3 H, Plt Count 211, MPV 8.1, Neut % (Auto) 93.5 H, Lymph % (Auto) 4.7 L, [place] % (Auto) 1.2 L, Eos % (Auto) 0.6, Baso % (Auto) 0.0 L , Neut # (Auto) 14.7 H, Lymph # (Auto) 0.7, [place] # (Auto) 0.2, Eos # (Auto) 0.1, Baso # (Auto) 0.0, Total Counted 100, Neutrophils % (Manual) 86 H, Band Neutrophils % 7.0, Lymphocytes % (Manual) 7 L, Platelet Estimate Normal, Polychromasia 1+, Hypochromasia 3+, Microcytosis 2+ 04/10/18 06:00: Sodium 136, Potassium 4.4, Chloride 102, Carbon Dioxide 26, Anion Gap 12.4, BUN 15, Creatinine 0.68, Estimated Creat Clear 52, Estimated GFR 87, Est GFR ( Amer) 105 D, Glucose 170 H D, Calcium 8.3 L, Magnesium 1.7 04/10/18 06:19: POC Glucose 159 H I & O for Last 24 hours: Intake & Output 04/08/18 04/09/18 04/10/18 04/11/18 11:59 11:59 11:59 11:59 Intake Total 1130 / 1130 360 / 360 Balance 1130 / 1130 360 / 360 Weight 131 lb 8 oz - *Routine HEENT Exam Head: Present: normocephalic Eye: Present: PERRL ENT: Present: mucous membranes moist - *Routine Neck Exam Present: supple. Absent: lymphadenopathy - *Routine Respiratory Exam Present: rhonchi, wheezes, diminished air movement - *Routine Cardiovascular Exam Present: RRR - *Routine Abdominal Exam Present: soft, normoactive bowel sounds. Absent: tenderness - *Routine Extremities Exam Absent: cyanosis, clubbing, edema - *Routine Skin Exam Present: warm. Absent: rash - *Routine Neurological Exam Present: alert, oriented X3 Assessment and Plan - Assessment and plan all Dx Assessment and Plan for all problems:: Discussed patient with Dr. Dill, Dr. Dill will return later today, all orders per Dr. Dill
[2018-04-11 05:50] LABS: Hematocrit 30.1 % (37.0-47.0); Hemoglobin 9.2 g/dL (12.2-16.2); Lymphocytes % 5.8 % (10-50); Mean Corpuscular HGB Conc 30.4 g/dL (31.8-35.4); Mean Corpuscular Hemoglobin 22.5 pg (27.0-31.2); Mean Platelet Volume 8.4 fl (7.4-10.4); Monocytes # 0.3 K/mm3 (0.1-1.0); Monocytes % 1.9 % (1.7-9.3); Neutrophils # 15.4 K/mm3 (1.8-7.8); Neutrophils % 92.3 % (37.0-80.0); Platelet Count 267 K/mm3 (142-424); Red Blood Count 4.07 M/mm3 (4.20-5.40); Red Cell Distribution Width 18.5 % (11.5-17.5); White Blood Count 16.7 K/mm3 (4.8-10.8)
[2018-04-11 06:06] LABS: Albumin Level 2.1 gm/dL (3.4-5.0); Albumin/Globulin Ratio 0.6 (1.1-1.8); Anion Gap 13.5 mEq/L (5-15); Bilirubin,Total 0.1 mg/dL (0.2-1.0); Calcium 8.3 mg/dL (8.5-10.1); Globulin 3.7 gm/dl (1.3-3.2); Potassium 4.5 mmoL/L (3.5-5.1); Total Protein,Serum 5.8 gm/dL (6.4-8.2)
[2018-04-11 06:14] LABS: Lymphocytes % 4 % (10-50); Monocytes % 1 % (2-9); Neutrophils % 88 % (42-76); Total Cells Counted 100
[2018-04-11 06:15] LABS: Hypochromasia 2+; Polychromasia 1+
--- NOTE | 2018-04-11 09:43 | Consult Report ---
History of Present Illness Consult date: 04/11/18 Requesting physician: Emeka Dill Chief complaint: SOA, Pneumonia, Pacemaker interrogation Additional Medical History:: 1. CAD A. [facility], 2014, moderate LAD disease, medical therapy 2. PAD A. right SFA stent occluded with collateral reconstruction in popliteal area. 3. COPD with continued tobacco use. A. Pulmonary fibrosis B. Stopped smoking early [address] [place] Permanent pacemaker for symptomatic bradycardia, 2014 5. Hyperlipidemia 6. Diabetes Mellitus, Type 2 A. Treated since approximately 1997 7. HTN A. echo, 2014, mild to moderate MR B. Echo, 01/2017, 2D 1. Left atrium is normal size, left ventricle is normal size, there is no concentric left ventricular hypertrophy, there is preserved left ventricular systolic function, visually estimated ejection fraction of 55% with no obvious regional wall motion abnormality. 2. The right atrium and right ventricle are normal size and contractility, there is catheter noted in the right atrium which is likely a pacemaker lead. 3. The aortic valve is minimally thickened and fibrosed. 4. The mitral and tricuspid valve leaflets are grossly normal. 5. The pulmonic valve is poorly visualized. 6. No significant pericardial effusion noted. DOPPLER INTERROGATION: Doppler interrogation of the aortic mitral and tricuspid valvular presence of mild mitral and tricuspid regurgitation, tricuspid regurgitant jet velocity insufficient for calculation of the right ventricular systolic pressure, diastolic parameters are within normal range. CONCLUSION: 1. Normal left ventricular size. Preserved left ventricular systolic function, visually estimated ejection fraction 55% with no obvious regional wall motion abnormality, diastolic parameters are within normal range. 2. Mild mitral and tricuspid regurgitation. 3. No significant pericardial effusion noted 8. Anxiety/Depression 9. S/p left hip replacement, 10/2017, Dr. Green in [place]. History of present illness: 67-year-old female presents to the ed per squad with c/o sob, fever, cough x 2 days seen yesterday in [facility] with same symptoms and pt states she was told to return if fever was 101. states fever of 101.7 today. pt with hx of copd wears o2 prn but has been using 24hrs. +cough with yellow sputum. Patient admitted with COPD and poss right lower lobe pneumonia The above per Dr. Dill's H&P. Pt missed last appt with us earlier this month due to not feeling well. [facility] History Medical History: Reports:: Anxiety, Arrhythmia, Congestive Heart Failure, Chronic Obstructive Pulmonary Disease (COPD), Coronary Artery Disease, Depression, Diabetes Mellitus Type 2, Heart Murmur, Hyperlipidemia, Hypertension, Internal Pacemaker, Palpitations, Peripheral Artery Disease, Peripheral Vascular Disease Denies:: Cancer, MRSA Other Medical History: Reports: Anemia, Arthritis, Cataracts, Hoarseness, Hormone Therapy, Sinus Problems, Thyroid Disease Laterality Cases: Left: Total Hip Replacement, Right: Carpal Tunnel Release, Bilateral: Other Other Surgeries: Yes: Cardiac Catheterization, Cholecystectomy, Hysterectomy- Total, Pacemaker, Tubal Ligation, Other Amputation: No Fractures: No - *Social History Educational Level: Completed High School Smoking Status: Current every day smoker Tobacco Type: cigarettes # Packs/Day (cigarettes): 1 #Yrs smoked (if former smoker): 50 Alcohol Intake: never Alcohol Intake Frequency:: other Substance Use Type: denies use Occupational Status: disabled Housing: house Household Members: family - Psychiatric History Expresses thoughts of harming self/others: None Suicide Plan Description: No Plan Pschychiatric History:: Reports:: Anxiety, Depression *Family Hx:: Asthma, Cancer, Coronary Artery Disease, Diabetes, Heart Attack, Hyperlipidemia, Hypertension, Stroke, Tuberculosis Meds Home Medications Medication Instructions Recorded Confirmed Type albuterol sulfate HFA 90 2 puff INHALATION Q6H 05/05/17 04/09/18 History mcg/actuation aerosol inhaler aspirin 81 mg tablet,delayed 81 mg PO DAILY 05/05/17 04/10/18 History release conjugated estrogens 0.625 mg 0.625 mg PO DAILY tab 05/05/17 04/09/18 History tablet furosemide 20 mg tablet 20 mg PO DAILY 05/05/17 04/09/18 History ipratropium-albuterol 0.5 mg-3 3 ml INHALATION QID ml 05/05/17 04/09/18 History mg(2.5 mg base)/3 mL nebulization soln lisinopril 20 mg tablet 20 mg PO DAILY 05/05/17 04/09/18 History loratadine 10 mg disintegrating 10 mg PO DAILY 05/05/17 04/09/18 History tablet metformin 500 mg tablet 500 mg PO BID 05/05/17 04/09/18 History nicotine 21 mg/24 hr daily 21 mg TRANSDERMA DAILY 05/05/17 04/10/18 History transdermal patch umeclidinium 62.5 mcg/actuation 1 puff INHALATION DAILY 05/05/17 04/10/18 History blister powder for inhalation hydrocodone 5 mg-acetaminophen 325 1 tab PO Q6H PRN 09/23/17 04/09/18 History mg tablet Azithromycin [Z-Jostin 250mg Tab] 250 mg PO UD DOSE PK 04/09/18 04/09/18 History Benzonatate [Tessalon Perle 100mg 100 mg PO TID 04/09/18 04/09/18 History Cap] Ergocalciferol (Vitamin D2) 50,000 unit PO WEEKLY 04/09/18 04/10/18 History [Vitamin D2] Allergies Allergy/AdvReac Type Severity Reaction Status Date / Time codeine [CODEINE] Allergy Unknown NA-NAUSEA/V Verified 10/01/17 10:16 OMITING diphenhydramine Allergy Unknown I-RASH Verified 10/01/17 10:16 [DIPHENHYDRAMINE] Iodinated Contrast Media - Allergy Unknown Difficulty Verified 10/01/17 10:16 Oral and Breathing [IODINATED CONTRAST MEDIA - ORAL AND] Penicillins [PENICILLINS] Allergy Unknown RASH, Verified 10/01/17 10:[address] POWERS Sulfa (Sulfonamide Allergy Unknown NA-NAUSEA/V Verified 10/01/17 10:16 Antibiotics) OMITING [SULFA (SULFONAMIDE ANTIBIOTICS)] aspirin Allergy Rash Verified 10/01/17 10:16 fluconazole [From Diflucan] Allergy Rash Verified 10/01/17 10:16 oxycodone [From Percocet] Allergy Rash Verified 10/01/17 10:16 zolmitriptan [From Zomig] Allergy Rash Verified 10/01/17 10:16 Review of Systems - *Cardiovascular Reports shortness of breath with activity, Denies chest pain - *Respiratory Reports cough, Reports shortness of breath with activity - *Gastrointestinal Denies abdominal pain, Denies bright, red blood in stools, Denies black, tarry stools - *Genitourinary Reports urinary incontinence - *Musculoskeletal Reports joint pain - *Neurologic Denies abnormal movements, Denies behavioral changes, Denies seizure-like activity Exam Vital signs and Labs for Last 24 Hours: Temp Pulse Resp BP Pulse Ox 97.8 F 71 18 104/48 L 94 L 04/11/18 08:00 04/11/18 08:00 04/11/18 08:00 04/11/18 08:00 04/11/18 09:19 Laboratory Results - last 24 hr 04/10/18 16:44: POC Glucose 186 H 04/10/18 20:05: POC Glucose 276 H 04/11/18 05:13: POC Glucose 172 H 04/11/18 05:23: WBC 16.7 H, RBC 4.07 L, Hgb 9.2 L, Hct 30.1 L, MCV 74.0 L, MCH 22.5 L, MCHC 30.4 L, RDW 18.5 H, Plt Count 267 D, MPV 8.4, Neut % (Auto) 92.3 H , Lymph % (Auto) 5.8 L, [place] % (Auto) 1.9, Eos % (Auto) 0.0 L, Baso % (Auto) 0.0 L, Neut # (Auto) 15.4 H, Lymph # (Auto) 1.0, [place] # (Auto) 0.3, Eos # (Auto) 0.0, Baso # (Auto) 0.0, Total Counted 100, Neutrophils % (Manual) 88 H, Band Neutrophils % 7.0, Lymphocytes % (Manual) 4 L, Monocytes % (Manual) 1 L, Platelet Estimate Normal, Polychromasia 1+, Hypochromasia 2+, Poikilocytosis 1+, Microcytosis 2+ 04/11/18 05:23: Sodium 135 L, Potassium 4.5, Chloride 101, Carbon Dioxide 25, Anion Gap 13.5, BUN 19 H D, Creatinine 0.88 D, Estimated Creat Clear 56, Estimated GFR 64, Est GFR ( Amer) 78 D, Glucose 173 H, Calcium 8.3 L, Total Bilirubin 0.1 L, AST 4 L D, ALT 9 L D, Alkaline Phosphatase 91, Total Protein 5.8 L, Albumin 2.1 L D, Globulin 3.7 H, Albumin/Globulin Ratio 0.6 L I & O for Last 24 hours: Intake & Output 04/08/18 04/09/18 04/10/18 04/11/18 11:59 11:59 11:59 11:59 Intake Total 1130 / 1130 2635 / 2635 Balance 1130 / 1130 2635 / 2635 Weight 131 lb 8 oz 140 lb 1 oz Microbiology Reports for the Last 24 Hours: Microbiology 04/10/18 09:53 Sputum - Expectorated Sputum Gram Stain - Final 04/10/18 09:53 Sputum - Expectorated Sputum Sputum Culture - Preliminary - *Routine Neck Exam Present: supple. Absent: JVD, carotid bruit - *Routine Respiratory Exam Present: decreased breath sounds, rhonchi, diminished air movement. Absent: accessory muscle use, rales, wheezes - *Routine Cardiovascular Exam Present: RRR. Absent: murmur, gallop, rubs - *Routine Abdominal Exam Present: soft. Absent: tenderness, distended, guarding - *Routine Extremities Exam Absent: edema, calf tenderness - *Routine Skin Exam Present: warm. Absent: cyanosis - *Routine Neurological Exam Present: alert, oriented X3, moving all extremities Assessment and Plan (1) Cardiac pacemaker in situ Current visit: Yes Status: Acute Category: Medical Code(s): Z95.0 - Presence of cardiac pacemaker (2) CAD (coronary artery disease) Current visit: Yes Status: Acute Category: Medical Code(s): I25.10 - Atherosclerotic heart disease of [place] coronary artery without angina pectoris (3) PAD (peripheral artery disease) Current visit: Yes Status: Acute Category: Medical Code(s): I73.9 - Peripheral vascular disease, unspecified (4) Acute exacerbation of chronic obstructive airways disease Current visit: Yes Status: Acute Category: Medical Code(s): J44.1 - Chronic obstructive pulmonary disease with (acute) exacerbation (5) Community acquired pneumonia Current visit: Yes Status: Acute Qualifiers: Laterality: right Lung location: lower lobe of lung Qualified Code(s): J18.1 - Lobar pneumonia, unspecified organism Category: Medical Code(s): J18.9 - Pneumonia, unspecified organism (6) Diabetes 1.5, managed as type 2 Current visit: Yes Status: Acute Category: Medical Code(s): E13.9 - Other specified diabetes mellitus without complications (7) COPD (chronic obstructive pulmonary disease) Current visit: No Status: Acute Qualifiers: COPD type: COPD with acute exacerbation Qualified Code(s): J44.1 - Chronic obstructive pulmonary disease with (acute) exacerbation Category: Medical Code(s): J44.9 - Chronic obstructive pulmonary disease, unspecified (8) Elevated WBC count Current visit: No Status: Acute Qualifiers: Leukocytosis type: lymphocytosis Qualified Code(s): D72.820 - Lymphocytosis (symptomatic) Category: Medical Code(s): D72.829 - Elevated white blood cell count, unspecified - Assessment and plan all Dx Assessment and Plan for all problems:: 1. Pacemaker interrogated today, and it shows no recent arrhythmias (last one in August 2017). She is Atrial paced 47%, Ventricular paced <1%. No changes made. 2. CAD and PAD are clinically stable. Continue ASA, lasix, lisinopril and diltiazem as per home doses. 3. No further testing or recomendations at this time.
--- NOTE | 2018-04-11 13:14 | Progress Note ---
Internal Medicine - PN: Subj *Date: 04/11/18 *Time: 08:30 Interval history: pt doing better at this time Exam Vital signs and Labs for Last 24 Hours: Temp Pulse Resp BP Pulse Ox 98.2 F 61 20 113/47 L 95 04/11/18 11:38 04/11/18 11:38 04/11/18 11:38 04/11/18 11:38 04/11/18 11:38 Laboratory Results - last 24 hr 04/10/18 11:40: POC Glucose 186 H 04/10/18 16:44: POC Glucose 186 H 04/10/18 20:05: POC Glucose 276 H 04/11/18 05:13: POC Glucose 172 H 04/11/18 05:23: WBC 16.7 H, RBC 4.07 L, Hgb 9.2 L, Hct 30.1 L, MCV 74.0 L, MCH 22.5 L, MCHC 30.4 L, RDW 18.5 H, Plt Count 267 D, MPV 8.4, Neut % (Auto) 92.3 H , Lymph % (Auto) 5.8 L, [place] % (Auto) 1.9, Eos % (Auto) 0.0 L, Baso % (Auto) 0.0 L, Neut # (Auto) 15.4 H, Lymph # (Auto) 1.0, [place] # (Auto) 0.3, Eos # (Auto) 0.0, Baso # (Auto) 0.0, Total Counted 100, Neutrophils % (Manual) 88 H, Band Neutrophils % 7.0, Lymphocytes % (Manual) 4 L, Monocytes % (Manual) 1 L, Platelet Estimate Normal, Polychromasia 1+, Hypochromasia 2+, Poikilocytosis 1+, Microcytosis 2+ 04/11/18 05:23: Sodium 135 L, Potassium 4.5, Chloride 101, Carbon Dioxide 25, Anion Gap 13.5, BUN 19 H D, Creatinine 0.88 D, Estimated Creat Clear 56, Estimated GFR 64, Est GFR ( Amer) 78 D, Glucose 173 H, Calcium 8.3 L, Total Bilirubin 0.1 L, AST 4 L D, ALT 9 L D, Alkaline Phosphatase 91, Total Protein 5.8 L, Albumin 2.1 L D, Globulin 3.7 H, Albumin/Globulin Ratio 0.6 L 12/10/18 11:00: POC Glucose 164 H I & O for Last 24 hours: Intake & Output 04/09/18 04/10/18 04/11/18 04/12/18 11:59 11:59 11:59 11:59 Intake Total 1130 / 1130 2635 / 2635 360 / 360 Balance 1130 / 1130 2635 / 2635 360 / 360 Weight 131 lb 8 oz 140 lb 1 oz Microbiology Reports for the Last 24 Hours: Microbiology 04/10/18 09:53 Sputum - Expectorated Sputum Gram Stain - Final 04/10/18 09:53 Sputum - Expectorated Sputum Sputum Culture - Preliminary - Constitutional no acute distress - *Routine HEENT Exam Head: Present: normocephalic Eye: Present: EOMI, PERRL ENT: Present: mucous membranes dry - *Routine Neck Exam Present: supple - *Routine Respiratory Exam Present: decreased breath sounds, wheezes - *Routine Cardiovascular Exam Present: RRR, murmur - *Routine Abdominal Exam Present: soft - *Routine Extremities Exam Absent: edema - *Routine Skin Exam Present: intact - *Routine Neurological Exam Present: alert, oriented X3, CN II-XII intact - Routine Psychiatric Exam Present: normal affect Assessment and Plan (1) Cardiac pacemaker in situ Current visit: Yes Status: Acute Category: Medical Code(s): Z95.0 - Presence of cardiac pacemaker (2) CAD (coronary artery disease) Current visit: Yes Status: Acute Category: Medical Code(s): I25.10 - Atherosclerotic heart disease of [place] coronary artery without angina pectoris (3) PAD (peripheral artery disease) Current visit: Yes Status: Acute Category: Medical Code(s): I73.9 - Peripheral vascular disease, unspecified (4) Acute exacerbation of chronic obstructive airways disease Current visit: Yes Status: Acute Category: Medical Code(s): J44.1 - Chronic obstructive pulmonary disease with (acute) exacerbation (5) Community acquired pneumonia Current visit: Yes Status: Acute Qualifiers: Laterality: right Lung location: lower lobe of lung Qualified Code(s): J18.1 - Lobar pneumonia, unspecified organism Category: Medical Code(s): J18.9 - Pneumonia, unspecified organism (6) Diabetes 1.5, managed as type 2 Current visit: Yes Status: Acute Category: Medical Code(s): E13.9 - Other specified diabetes mellitus without complications (7) COPD (chronic obstructive pulmonary disease) Current visit: No Status: Acute Qualifiers: COPD type: COPD with acute exacerbation Qualified Code(s): J44.1 - Chronic obstructive pulmonary disease with (acute) exacerbation Category: Medical Code(s): J44.9 - Chronic obstructive pulmonary disease, unspecified (8) Elevated WBC count Current visit: No Status: Acute Qualifiers: Leukocytosis type: lymphocytosis Qualified Code(s): D72.820 - Lymphocytosis (symptomatic) Category: Medical Code(s): D72.829 - Elevated white blood cell count, unspecified
[2018-04-12 06:21] LABS: Eosinophils % 0.1 % (0.1-12.0); Hematocrit 31.6 % (37.0-47.0); Hemoglobin 9.6 g/dL (12.2-16.2); Lymphocytes # 0.9 K/mm3 (0.7-4.5); Lymphocytes % 5.6 % (10-50); Mean Corpuscular HGB Conc 30.2 g/dL (31.8-35.4); Mean Corpuscular Hemoglobin 22.4 pg (27.0-31.2); Mean Corpuscular Volume 74.1 fl (81-99); Mean Platelet Volume 7.5 fl (7.4-10.4); Monocytes # 0.3 K/mm3 (0.1-1.0); Monocytes % 1.9 % (1.7-9.3); Neutrophils # 13.9 K/mm3 (1.8-7.8); Neutrophils % 92.3 % (37.0-80.0); Platelet Count 285 K/mm3 (142-424); Red Blood Count 4.27 M/mm3 (4.20-5.40); Red Cell Distribution Width 18.3 % (11.5-17.5)
[2018-04-12 06:35] LABS: Albumin Level 2.2 gm/dL (3.4-5.0); Albumin/Globulin Ratio 0.6 (1.1-1.8); Anion Gap 14.3 mEq/L (5-15); Bilirubin,Total 0.1 mg/dL (0.2-1.0); Calcium 8.2 mg/dL (8.5-10.1); Globulin 3.7 gm/dl (1.3-3.2); Potassium 4.3 mmoL/L (3.5-5.1); Total Protein,Serum 5.9 gm/dL (6.4-8.2)
--- NOTE | 2018-04-12 09:08 | Discharge Summary ---
General - General Admission date:: 04/09/18 Discharge date: 04/12/18 HPI HPI: 67-year-old female presents to the ed per squad with c/o sob, fever, cough x 2 days seen yesterday in [facility] with same symptoms and pt states she was told to return if fever was 101. states fever of 101.7 today. pt with hx of copd wears o2 prn but has been using 24hrs. +cough with yellow sputum. Patient admitted with COPD and poss right lower lobe pneumonia. Hospital Course Hospital Course: chest x ray:IMPRESSION: 1. Improvement in right lower lobe pneumonia with mild residual in the right lung base laterally with small effusion. 2. CHF with interstitial edema with superimposed chronic lung disease Cardiology consult see note knee x-ray see report Patient states she is feeling better today we will discharge home on Zithromax and follow-up in the office in 1 week Objective Vital signs: Temp Pulse Resp BP Pulse Ox 97.4 F L 68 24 154/80 H 91 L 04/12/18 04:00 04/12/18 05:48 04/12/18 04:00 04/12/18 04:00 04/12/18 05:48 no acute distress - *Routine HEENT Exam Head: Present: normocephalic Eye: Present: PERRL ENT: Present: mucous membranes moist - *Routine Neck Exam Present: full ROM - *Routine Respiratory Exam Present: wheezes - *Routine Cardiovascular Exam Present: RRR - *Routine Abdominal Exam Present: soft, normoactive bowel sounds - *Routine Skin Exam Present: intact - *Routine Neurological Exam Present: alert, oriented X3 - Routine Psychiatric Exam Present: normal affect Results Labs on day of discharge: Labs from last 24 hours 04/12/18 04/12/18 04/12/18 05:48 05:48 05:03 WBC 15.0 H RBC 4.27 Hgb 9.6 L Hct 31.6 L MCV 74.1 L MCH 22.4 L MCHC 30.2 L RDW 18.3 H Plt Count 285 MPV 7.5 Neut % (Auto) 92.3 H Lymph % (Auto) 5.6 L [place] % (Auto) 1.9 Eos % (Auto) 0.1 Baso % (Auto) 0.0 L Neut # (Auto) 13.9 H Lymph # (Auto) 0.9 [place] # (Auto) 0.3 Eos # (Auto) 0.0 Baso # (Auto) 0.0 Sodium 136 Potassium 4.3 Chloride 101 Carbon Dioxide 25 Anion Gap 14.3 BUN 21 H Creatinine 0.96 Estimated Creat Clear 56 Estimated GFR 58 L Est GFR ( Amer) 70 Glucose 197 H POC Glucose 194 H Calcium 8.2 L Total Bilirubin 0.1 L AST 4 L ALT 11 L Alkaline Phosphatase 91 Total Protein 5.9 L Albumin 2.2 L Globulin 3.7 H Albumin/Globulin Ratio 0.6 L 04/11/18 04/11/18 04/11/18 21:16 16:37 11:00 WBC RBC Hgb Hct MCV MCH MCHC RDW Plt Count MPV Neut % (Auto) Lymph % (Auto) [place] % (Auto) Eos % (Auto) Baso % (Auto) Neut # (Auto) Lymph # (Auto) [place] # (Auto) Eos # (Auto) Baso # (Auto) Sodium Potassium Chloride Carbon Dioxide Anion Gap BUN Creatinine Estimated Creat Clear Estimated GFR Est GFR ( Amer) Glucose POC Glucose 248 H 196 H 164 H Calcium Total Bilirubin AST ALT Alkaline Phosphatase Total Protein Albumin Globulin Albumin/Globulin Ratio 04/10/18 11:40 WBC RBC Hgb Hct MCV MCH MCHC RDW Plt Count MPV Neut % (Auto) Lymph % (Auto) [place] % (Auto) Eos % (Auto) Baso % (Auto) Neut # (Auto) Lymph # (Auto) [place] # (Auto) Eos # (Auto) Baso # (Auto) Sodium Potassium Chloride Carbon Dioxide Anion Gap BUN Creatinine Estimated Creat Clear Estimated GFR Est GFR ( Amer) Glucose POC Glucose 186 H Calcium Total Bilirubin AST ALT Alkaline Phosphatase Total Protein Albumin Globulin Albumin/Globulin Ratio Preliminary micro results at discharge 04/09/18 18:10 Blood Culture - Preliminary Blood NO GROWTH AFTER 48 HOURS 04/09/18 18:10 Blood Culture - Preliminary Blood NO GROWTH AFTER 48 HOURS 04/10/18 09:53 Sputum Culture - Preliminary Sputum - Expectorated Sputum - Additional Comments Rounded with Dr. Dill all orders per Fuentes Discharge today DS: Diagnosis - Discharge Diagnosis (1) Cardiac pacemaker in situ Status: Acute (2) CAD (coronary artery disease) Status: Acute (3) PAD (peripheral artery disease) Status: Acute (4) Acute exacerbation of chronic obstructive airways disease Status: Acute (5) Community acquired pneumonia Status: Acute (6) Diabetes 1.5, managed as type 2 Status: Acute (7) COPD (chronic obstructive pulmonary disease) Status: Acute (8) Elevated WBC count Status: Acute Discharge Plan - Patient Discharge Instructions ACTIVITY: Continue current activity DIET: continue same diet - Follow up Plan Follow up with: Madhuri Chin APRN [Nurse Practitioner] - 1 week Disposition: Home, Self-[facility] Medications: Home Medications Medication Instructions Recorded Confirmed Type albuterol sulfate HFA 90 2 puff INHALATION Q6H 05/05/17 04/09/18 History mcg/actuation aerosol inhaler aspirin 81 mg tablet,delayed 81 mg PO DAILY 05/05/17 04/10/18 History release conjugated estrogens 0.625 mg 0.625 mg PO DAILY tab 05/05/17 04/09/18 History tablet furosemide 20 mg tablet 20 mg PO DAILY 05/05/17 04/09/18 History ipratropium-albuterol 0.5 mg-3 3 ml INHALATION QID ml 05/05/17 04/09/18 History mg(2.5 mg base)/3 mL nebulization soln lisinopril 20 mg tablet 20 mg PO DAILY 05/05/17 04/09/18 History loratadine 10 mg disintegrating 10 mg PO DAILY 05/05/17 04/09/18 History tablet metformin 500 mg tablet 500 mg PO BID 05/05/17 04/09/18 History nicotine 21 mg/24 hr daily 21 mg TRANSDERMA DAILY 05/05/17 04/10/18 History transdermal patch umeclidinium 62.5 mcg/actuation 1 puff INHALATION DAILY 05/05/17 04/10/18 Histo ry blister powder for inhalation hydrocodone 5 mg-acetaminophen 325 1 tab PO Q6H PRN 09/23/17 04/09/18 History mg tablet Benzonatate [Tessalon Perle 100mg 100 mg PO TID 04/09/18 04/09/18 History Cap] Ergocalciferol (Vitamin D2) 50,000 unit PO WEEKLY 04/09/18 04/10/18 History [Vitamin D2] Prescriptions/Medication Reconciliation: New Promethazine HCl [Phenergan 12.5mg tablet] 12.5 mg PO DAILY PRN #15 tab PRN Reason: nausea and vomiting Tizanidine HCl [Zanaflex] 4 mg PO BID PRN #60 tab PRN Reason: muscle spasticity Continue loratadine 10 mg disintegrating tablet 10 mg PO DAILY aspirin 81 mg tablet,delayed release 81 mg PO DAILY ipratropium-albuterol 0.5 mg-3 mg(2.5 mg base)/3 mL nebulization soln 3 ml INHALATION QID ml umeclidinium 62.5 mcg/actuation blister powder for inhalation 1 puff INHALATION DAILY lisinopril 20 mg tablet 20 mg PO DAILY metformin 500 mg tablet 500 mg PO BID nicotine 21 mg/24 hr daily transdermal patch 21 mg TRANSDERMA DAILY conjugated estrogens 0.625 mg tablet 0.625 mg PO DAILY tab albuterol sulfate HFA 90 mcg/actuation aerosol inhaler 2 puff INHALATION Q6H diltiazem ER (XR/XT) 120 mg capsule,extended release 24 hr, controlled 120 mg PO DAILY #30 cap sertraline 50 mg tablet 50 mg PO DAILY #30 tab furosemide 20 mg tablet 20 mg PO DAILY hydroxyzine HCl 25 mg tablet 25 mg PO TID-QID PRN #90 tab PRN Reason: anxiety hydrocodone 5 mg-acetaminophen 325 mg tablet 1 tab PO Q6H PRN PRN Reason: pain omeprazole 40 mg capsule,delayed release 40 mg PO DAILY #30 cap Ergocalciferol (Vitamin D2) [Vitamin D2] 50,000 unit PO WEEKLY Benzonatate [Tessalon Perle 100mg Cap] 100 mg PO TID Azithromycin [Z-Jostin 250mg Tab] 250 mg PO UD DOSE PK #5 tab
[2018-04-12 10:15] LABS: Anisocytosis 1+; Lymphocytes % 9 % (10-50); Monocytes % 3 % (2-9); Neutrophils % 88 % (42-76); Total Cells Counted 100
== END 2018-04-12 11:35 | disposition home or self-care (01) ==
LOC: 2ND 17:23 → ER 17:23 → OBSVTOIN 19:50 → 2ND 19:55
PROVIDERS: ADMIT Emergency Medicine; ATTEND Emergency Medicine

== ENCOUNTER 2018-04-18 15:04 | Inpatient (IN) ==
[2018-04-18 15:53] LABS: ABG Base Excess 4.6 mmol/L (-2.4-2.3); ABG HCO3 28.4 mmhg (22.0-26.0); ABG Oxygen Saturation 92 % (90-100); ABG PCO2 40.9 mmhg (35.0-45.0); ABG PH 7.46 mmol/L (7.35-7.45); ABG PO2 64.7 mmhg (80-100); ABG TCO2 29.7 mmhg (23-27)
[2018-04-18 15:57] LABS: Oxygen 5LPM %
[2018-04-18 16:25] LABS: Basophils % 0.2 % (0.1-2.0); Eosinophils # 0.3 K/mm3 (0.0-0.4); Eosinophils % 2.3 % (0.1-12.0); Hematocrit 32.8 % (37.0-47.0); Hemoglobin 10.2 g/dL (12.2-16.2); Lymphocytes # 1.1 K/mm3 (0.7-4.5); Lymphocytes % 9.5 % (10-50); Mean Corpuscular HGB Conc 31.1 g/dL (31.8-35.4); Mean Corpuscular Hemoglobin 22.5 pg (27.0-31.2); Mean Corpuscular Volume 72.4 fl (81-99); Monocytes # 0.7 K/mm3 (0.1-1.0); Monocytes % 5.9 % (1.7-9.3); Neutrophils # 9.6 K/mm3 (1.8-7.8); Neutrophils % 82.1 % (37.0-80.0); Platelet Count 255 K/mm3 (142-424); Red Blood Count 4.53 M/mm3 (4.20-5.40); Red Cell Distribution Width 19.1 % (11.5-17.5); White Blood Count 11.7 K/mm3 (4.8-10.8)
[2018-04-18 16:42] LABS: Albumin Level 2.3 gm/dL (3.4-5.0); Albumin/Globulin Ratio 0.6 (1.1-1.8); Anion Gap 5.9 mEq/L (5-15); Bilirubin,Total 0.6 mg/dL (0.2-1.0); Calcium 7.9 mg/dL (8.5-10.1); Globulin 3.7 gm/dl (1.3-3.2); Potassium 3.4 mmoL/L (3.5-5.1)
--- NOTE | 2018-04-18 17:17 | Emergency Department Note ---
ED Disposition Clinical Impression: Pneumonia, Acute exacerbation of chronic obstructive airways disease Disposition: Admitted As Inpatient Condition on Discharge: Fair Time of Disposition: 17:30 - Critical Care Critical Care Time: No Attestation: On 04/18/18, the high probability of a clinically significant, sudden or life threatening deterioration of the following system(s) required my full and direct attention, intervention and personal management. The time I documented below is in addition to time spent performing reported procedures but includes the following listed in this critical care notation. Medical Decision Making - Medical Records Medical records reviewed: Yes: I reviewed the patient's medical records. - Lazaro Inquiry Pt receiving controlled substance: No Vital Signs: 04/18/18 15:06 04/18/18 15:44 04/18/18 16:36 Temperature 101.0 F H Temperature Source Oral Pulse Rate 98 H Pulse Rate [Right Brachial] 82 109 H Respiratory Rate 28 H 22 Blood Pressure [Right Arm] 183/112 H 186/90 H Blood Pressure Mean [Right Arm] 135 122 Blood Pressure Source [Right Arm] Automatic Cuff Automatic Cuff Blood Pressure Position [Right Arm] Sitting Sitting 02 Sat by Pulse Oximetry 82 L 94 L Oxygen Delivery Method Nasal Cannula Nasal Cannula Oxygen Flow Rate (LPM) 2 5 - Lab Data Lab Results 04/18/18 15:32: Specimen Source R brachial, O2 % 5lpm, ABG pH 7.46 H, ABG pCO2 40.9, ABG pO2 64.7 L, ABG HCO3 28.4 H, ABG Total CO2 29.7 H, ABG O2 Saturation 92, ABG Base Excess 4.6 H, Alex Test N/a 04/18/18 15:35: Influenza Type A Ag Negative, Influenza Type B Ag Negative 04/18/18 16:14: WBC 11.7 H, RBC 4.53, Hgb 10.2 L, Hct 32.8 L, MCV 72.4 L, MCH 22.5 L, MCHC 31.1 L, RDW 19.1 H, Plt Count 255, MPV 8.0, Neut % (Auto) 82.1 H, Lymph % (Auto) 9.5 L, [place] % (Auto) 5.9, Eos % (Auto) 2.3, Baso % (Auto) 0.2, Neut # (Auto) 9.6 H, Lymph # (Auto) 1.1, [place] # (Auto) 0.7, Eos # (Auto) 0.3, Baso # (Auto) 0.0 04/18/18 16:14: Sodium 138, Potassium 3.4 L, Chloride 101, Carbon Dioxide 31, Anion Gap 5.9, BUN 6 L, Creatinine 0.70, Estimated Creat Clear 50, Estimated GFR 84, Est GFR ( Amer) 101, Glucose 117 H, Calcium 7.9 L, Total Bilirubin 0.6, AST 10 L, ALT 12, Alkaline Phosphatase 94, Total Creatine Kinase 32, CK-MB (CK-2) 0.9 D, CK-MB (CK-2) Rel Index 2.8, Troponin I 0.03, Total Protein 6.0 L, Albumin 2.3 L, Globulin 3.7 H, Albumin/Globulin Ratio 0.6 L 04/18/18 16:14: B-Natriuretic Peptide 159 H 04/18/18 16:14: Lactate 0.4 Result diagrams: 04/18/18 16:14 04/18/18 16:14 Orders (Tests/Meds): ED MEDICATIONS Generic Name Dose Route Start Last Admin Trade Name Freq PRN Reason Stop Dose Admin Levofloxacin/Dextrose 750 mg in 150 mls @ 100 mls/hr 04/18/18 16:30 Levofloxacin 750mg/150ml Premix IV 05/02/18 16:29 Q24H GENNARO Protocol Vancomycin HCl 1,250 mg/ 250 mls @ 125 mls/hr 04/18/18 17:02 Sodium Chloride IV 04/18/18 19:01 ONCE ONE Discontinued Medications Generic Name Dose Route Start Last Admin Trade Name Freq PRN Reason Stop Dose Admin Acetaminophen 1,000 mg 04/18/18 15:22 04/18/18 15:32 Tylenol 500mg Tablet PO 04/18/18 15:23 1,000 mg ONCE ONE Administration Albuterol Sulfate 2.5 mg 04/18/18 16:34 Albuterol 0.083% 2.5mg/3ml [facility] 04/18/18 16:35 ONCE ONE Albuterol/Ipratropium 3 ml 04/18/18 15:21 04/18/18 15:36 Duoneb 3ml [facility] 04/18/18 15:22 3 ml ONCE ONE Administration Piperacillin Sod/Tazobactam 100 mls @ 200 mls/hr 04/18/18 17:00 Sod 4.5 gm/ Sodium Chloride IV 04/18/18 17:01 Q12H ONE Protocol Ibuprofen 600 mg 04/18/18 15:22 04/18/18 15:32 Motrin 600mg Tablet PO 04/18/18 15:23 600 mg ONCE ONE Administration Methylprednisolone Sodium Succinate 125 mg 04/18/18 16:30 Solu-Medrol 125mg/2ml Vial IV 04/18/18 16:31 ONCE ONE ORDERS Category Date Time Status XR chest portable Stat Exams 04/18/18 15:19 Taken Blood Culture Stat Micro 04/18/18 16:14 Received Arterial Blood Gas Stat RT 04/18/18 15:32 Ordered - Physician Consults Reason -: Admission, Respiratory Eval/Care Comment/Response: will admit General Adult HPI - General Chief complaint: Shortness of Breath/Dyspnea Stated complaint: SOA Time Seen by Provider: 04/18/18 15:15 Mode of Arrival: Wheelchair Limitations: No Limitations Description of Symptoms (Recalled from ER Triage Doc. by RN): patient presents with copd exacerbation - History of Present Illness HPI narrative: Recent admit for pneumonia, discharged approximately one week ago. Increasing dyspnea and fevers over last 3 days. States she never recovered from pneumonia of recent. Onset (ago): week(s) (" I have pneumonia") Location: chest - Related Data Home Medications Medication Instructions Recorded Confirmed albuterol sulfate HFA 90 2 puff INHALATION Q6H 05/05/17 04/09/18 mcg/actuation aerosol inhaler aspirin 81 mg tablet,delayed 81 mg PO DAILY 05/05/17 04/10/18 release conjugated estrogens 0.625 mg 0.625 mg PO DAILY tab 05/05/17 04/09/18 tablet furosemide 20 mg tablet 20 mg PO DAILY 05/05/17 04/09/18 ipratropium-albuterol 0.5 mg-3 3 ml INHALATION QID ml 05/05/17 04/09/18 mg(2.5 mg base)/3 mL nebulization soln lisinopril 20 mg tablet 20 mg PO DAILY 05/05/17 04/09/18 loratadine 10 mg disintegrating 10 mg PO DAILY 05/05/17 04/09/18 tablet metformin 500 mg tablet 500 mg PO BID 05/05/17 04/09/18 nicotine 21 mg/24 hr daily 21 mg TRANSDERMA DAILY 05/05/17 04/10/18 transdermal patch umeclidinium 62.5 mcg/actuation 1 puff INHALATION DAILY 05/05/17 04/10/18 blister powder for inhalation hydrocodone 5 mg-acetaminophen 325 1 tab PO Q6H PRN 09/23/17 04/09/18 mg tablet Benzonatate [Tessalon Perle 100mg 100 mg PO TID 04/09/18 04/09/18 Cap] Ergocalciferol (Vitamin D2) 50,000 unit PO WEEKLY 04/09/18 04/10/18 [Vitamin D2] Previous Rx's Medication Instructions Recorded hydroxyzine HCl 25 mg tablet 25 mg PO TID-QID PRN #90 tab 06/29/17 diltiazem ER (XR/XT) 120 mg 120 mg PO DAILY #30 cap 01/30/18 capsule,extended release 24 hr, controlled omeprazole 40 mg capsule,delayed 40 mg PO DAILY #30 cap 01/30/18 release sertraline 50 mg tablet 50 mg PO DAILY #30 tab 01/30/18 Azithromycin [Z-Jostin 250mg Tab] 250 mg PO UD DOSE PK #5 tab 04/12/18 Promethazine HCl [Phenergan 12.5mg 12.5 mg PO DAILY PRN #15 tab 04/12/18 tablet] Tizanidine HCl [Zanaflex] 4 mg PO BID PRN #60 tab 04/12/18 Allergies Allergy/AdvReac Type Severity Reaction Status Date / Time codeine [CODEINE] Allergy Unknown NA-NAUSEA/V Verified 10/01/17 10:16 OMITING diphenhydramine Allergy Unknown I-RASH Verified 10/01/17 10:16 [DIPHENHYDRAMINE] Iodinated Contrast Media - Allergy Unknown Difficulty Verified 10/01/17 10:16 Oral and Breathing [IODINATED CONTRAST MEDIA - ORAL AND] Penicillins [PENICILLINS] Allergy Unknown RASH, Verified 10/01/17 10:[address] [place] [address] POWERS Sulfa (Sulfonamide Allergy Unknown NA-NAUSEA/V Verified 10/01/17 10:16 Antibiotics) OMITING [SULFA (SULFONAMIDE ANTIBIOTICS)] aspirin Allergy Rash Verified 10/01/17 10:16 fluconazole [From Diflucan] Allergy Rash Verified 10/01/17 10:16 oxycodone [From Percocet] Allergy Rash Verified 10/01/17 10:16 zolmitriptan [From Zomig] Allergy Rash Verified 10/01/17 10:16 [facility] History - Hepatitis A Screen Drug use history?: No High risk sexual behaviors?: No History of sexually transmitted infection?: No Currently employed?: No Childcare worker?: No Do you have indoor plumbing?: Yes Do you have electricity?: Yes Attestation statement:: This patient has been screened for Hepatitis A risk factors. Medical History: Reports:: Anxiety, Arrhythmia, Congestive Heart Failure, C hronic Obstructive Pulmonary Disease (COPD), Coronary Artery Disease, Depression, Diabetes Mellitus Type 2, Heart Murmur, Hyperlipidemia, Hypertension, Internal Pacemaker, Palpitations, Peripheral Artery Disease, Peripheral Vascular Disease Denies:: Cancer, MRSA Other Medical History: Reports: Anemia, Arthritis, Cataracts, Hoarseness, Hormone Therapy, Sinus Problems, Thyroid Disease Comment: TERESA, RLS, HEADACHES Laterality Cases: Left: Total Hip Replacement, Right: Carpal Tunnel Release, Bilateral: Other Other Surgeries: Yes: Cardiac Catheterization, Cholecystectomy, Hysterectomy- Total, Pacemaker, Tubal Ligation, Other Amputation: No Fractures: No Comment: Gallbladder - Social History Smoking Status: Current every day smoker Tobacco Type: cigarettes # Packs/Day (cigarettes): 1 #Yrs smoked (if former smoker): 50 Alcohol Intake: never Alcohol Intake Frequency:: other Substance Use Type: denies use Occupational Status: disabled Housing: house Household Members: family - Psychiatric History Expresses thoughts of harming self/others: None Suicide Plan Description: No Plan Pschychiatric History:: Reports:: Anxiety, Depression Family Hx:: Asthma, Cancer, Coronary Artery Disease, Diabetes, Heart Attack, Hyperlipidemia, Hypertension, Stroke, Tuberculosis ROS Obtained: Yes All systems reviewed & no additional complaints - Constitutional Constitutional: Reports system reviewed and no additional complaints, except as docu, Reports chills, Reports fever(s), Reports lethargy, Reports malaise - ENT Ears, Nose, Mouth, and Throat: Reports system reviewed and no additional complaints, except as docu - Cardiovascular Cardiovascular: Reports system reviewed and no additional complaints, except as docu - Respiratory Respiratory: Yes system reviewed and no additional complaints, except as docu, Yes change in phlegm color, Yes chest congestion, Yes cough, Yes dyspnea on exertion, No coughing up blood, No pain on inspiration, Yes pain with cough - Gastrointestinal Gastrointestingal: Reports: system reviewed and no additional complaints, except as docu. Denies: black, tarry stools - Musculoskeletal Musculoskeletal: Reports system reviewed and no additional complaints, except as docu - Integumentary/Breasts Skin/Breast: Reports system reviewed and no additional complaints, except as docu, Denies rash - Neurologic Neurologic: Reports system reviewed and no additional complaints, except as docu Physical Exam - General General appearance: alert, in no apparent distress - Head Head exam: atraumatic - Eye Eye exam: Present: normal appearance - ENT ENT exam: Present: normal exam - Respiratory Respiratory exam: Present: respiratory distress, wheezes, prolonged expiratory phase - Cardiovascular Cardiovascular exam: Present: regular rate, tachycardia - Abdominal Exam Abdominal exam: Present: soft. Absent: tenderness, guarding - Back Exam Back exam: Present: normal inspection - Neurological Exam Neurological exam: Present: alert, oriented X3, CN II-XII intact - Skin Skin exam: Present: warm, dry. Absent: rash, pallor
[2018-04-18 17:26] LABS: Microscopic, Urine URINE MICROSCOPIC (MICROSCOPIC)
[2018-04-18 17:27] LABS: Appearance,Urine CLEAR (Clear); Bilirubin,Urine Negative (Negative); Blood, Urine Negative (Negative); Color,Urine YELLOW (Yellow); Glucose,Urine (UA) Negative (Negative); Ketones,Urine Negative (Negative); Leukocyte Esterase,Urine Negative (Negative); Protein,Urine Negative (Negative); Urobilinogen,Urine 0.2 EU/dl (0.2)
[2018-04-18 17:46] LABS: Bacteria,Urine Trace /lpf; Squamous Epithelial Cell,Urine Occasional #/hpf (0-5); WBC,Urine Occasional #/hpf (0-3)
[2018-04-19 07:13] LABS: Anion Gap 11.5 mEq/L (5-15); Calcium 7.9 mg/dL (8.5-10.1); Potassium 3.5 mmoL/L (3.5-5.1)
[2018-04-19 07:26] LABS: Basophils % 0.4 % (0.1-2.0); Eosinophils % 0.2 % (0.1-12.0); Hematocrit 34.5 % (37.0-47.0); Hemoglobin 10.4 g/dL (12.2-16.2); Lymphocytes # 0.6 K/mm3 (0.7-4.5); Lymphocytes % 6.4 % (10-50); Mean Corpuscular HGB Conc 30.2 g/dL (31.8-35.4); Mean Corpuscular Hemoglobin 22.4 pg (27.0-31.2); Mean Corpuscular Volume 74.3 fl (81-99); Mean Platelet Volume 7.2 fl (7.4-10.4); Monocytes # 0.2 K/mm3 (0.1-1.0); Monocytes % 2.5 % (1.7-9.3); Neutrophils # 7.8 K/mm3 (1.8-7.8); Neutrophils % 90.5 % (37.0-80.0); Platelet Count 248 K/mm3 (142-424); Red Blood Count 4.65 M/mm3 (4.20-5.40); White Blood Count 8.6 K/mm3 (4.8-10.8)
--- NOTE | 2018-04-19 07:36 | Pharmacy Consult Notes ---
[facility] Pharmacy VTE Monitoring - Patient Demographics Admission date: 04/18/18 Report Date: 04/19/18 Time: 07:36 Allergies/Adverse Reactions: Patient Allergies codeine [CODEINE] Allergy (Unknown, Verified 10/01/17 10:16) NA-NAUSEA/VOMITING diphenhydramine [DIPHENHYDRAMINE] Allergy (Unknown, Verified 10/01/17 10:16) I-RASH Iodinated Contrast Media - Oral and [IODINATED CONTRAST MEDIA - ORAL AND] Allergy (Unknown, Verified 10/01/17 10:16) Difficulty Breathing Penicillins [PENICILLINS] Allergy (Unknown, Verified 10/01/17 10:16) RASH, ANCEF OKAY PER DR. POWERS Sulfa (Sulfonamide Antibiotics) [SULFA (SULFONAMIDE ANTIBIOTICS)] Allergy (Unkno wn, Verified 10/01/17 10:16) NA-NAUSEA/VOMITING aspirin Allergy (Verified 10/01/17 10:16) Rash fluconazole [From Diflucan] Allergy (Verified 10/01/17 10:16) Rash oxycodone [From Percocet] Allergy (Verified 10/01/17 10:16) Rash zolmitriptan [From Zomig] Allergy (Verified 10/01/17 10:16) Rash Height: 1.55 m Weight: 60.895 kg Patient Problems: Current Active Problems Acute exacerbation of chronic obstructive airways disease (Acute) Pneumonia (Acute) - VTE Risk Labs: VTE Related Lab Results Hgb 10.4 g/dL (12.2-16.2) L 04/19/18 06:35 Hct 34.5 % (37.0-47.0) L 04/19/18 06:35 Plt Count 248 K/mm3 (142-424) 04/19/18 06:35 BUN 7 mg/dL (7-18) 04/19/18 06:35 Creatinine 0.72 mg/dL (0.55-1.02) 04/19/18 06:35 Estimated Creat Clear 53 mL/min (50-200) 04/19/18 06:35 VTE Score: 2 - Prophylaxis VTE Prophylaxis Ordered?: Yes Types of VTE Prophylaxis: TEDS Knee High Location of Applied Device: Bilateral Lower Extremeties - VTE Diagnosis Confirmed Treatment or plan recommended: Continue Current Treatment
[2018-04-19 08:00] LABS: Lymphocytes % 6 % (10-50); Monocytes % 2 % (2-9); Neutrophils % 92 % (42-76); Total Cells Counted 100
--- NOTE | 2018-04-19 09:15 | History & Physical Report ---
*Admission Date: 04/18/18 *Chief complaint: sob *History of present illness: 67-year-old female presents to the ER with complaints of shortness of breath. Patient was just discharged 1 week ago with pneumonia. Patient states she never really recovered from her pneumonia. Patient has a history of COPD and is a smoker. Patient admitted for pneumonia started on IV antibiotics. Patient uses home O2. [facility] History I have reviewed the patient's past medical history: Yes Medical History: Reports:: Anxiety, Arrhythmia, Congestive Heart Failure, Chronic Obstructive Pulmonary Disease (COPD), Coronary Artery Disease, Depression, Diabetes Mellitus Type 2, Heart Murmur, Hyperlipidemia, Hypertension, Internal Pacemaker, Palpitations, Peripheral Artery Disease, Peripheral Vascular Disease Denies:: Cancer, Diabetes Mellitus Type 1, MRSA Other Medical History: Reports: Anemia, Arthritis, Cataracts, Hoarseness, Hormone Therapy, Sinus Problems, Thyroid Disease Laterality Cases: Left: Total Hip Replacement, Right: Carpal Tunnel Release, Bilateral: Other Other Surgeries: Yes: Cardiac Catheterization, Cholecystectomy, Hysterectomy- Total, Pacemaker, Tubal Ligation, Other Amputation: No Fractures: No - *Social History Educational Level: Attended High School Smoking Status: Former smoker Tobacco Type: cigarettes # Packs/Day (cigarettes): 1 #Yrs smoked (if former smoker): 50 Alcohol Intake: never Alcohol Intake Frequency:: other Substance Use Type: denies use Occupational Status: disabled Housing: house Household Members: spouse, family - Psychiatric History Expresses thoughts of harming self/others: None Suicide Plan Description: No Plan Pschychiatric History:: Reports:: Anxiety, Depression *Family Hx:: Asthma, Cancer, Coronary Artery Disease, Diabetes, Heart Attack, Hyperlipidemia, Hypertension, Stroke, Tuberculosis Review of Systems - Review of Systems Review of systems:: pertinent systems reviewed and negative unless documented below - Constitutional Denies body ache(s), Denies chills, Denies headache(s) - Eyes Denies change in vision - ENT Denies change in voice - *Cardiovascular Reports chest pain with activity, Reports shortness of breath - *Respiratory Reports change in phlegm color, Reports chest congestion, Reports cough, Reports shortness of breath, Reports shortness of breath with activity - *Gastrointestinal Denies feeling full early, Denies nausea, Denies vomiting - *Genitourinary Denies difficulty starting urination - *Musculoskeletal Denies decreased muscle mass - Integumentary/Breasts Denies change in hair, Denies rash - *Neurologic Denies abnormal movements - Psychiatric Denies lack of enjoyment - Endocrine Denies flushing - Hematologic/Lymphatic Denies enlarged lymph nodes - Allergic/Immunologic Denies lip swelling Meds Home Medications Medication Instructions Recorded Confirmed Type albuterol sulfate HFA 90 2 puff INHALATION Q6H 05/05/17 04/18/18 History mcg/actuation aerosol inhaler aspirin 81 mg tablet,delayed 81 mg PO DAILY 05/05/17 04/18/18 History release conjugated estrogens 0.625 mg 0.625 mg PO DAILY tab 05/05/17 04/18/18 History tablet furosemide 20 mg tablet 20 mg PO DAILY 05/05/17 04/18/18 History ipratropium-albuterol 0.5 mg-3 3 ml INHALATION QID ml 05/05/17 04/18/18 History mg(2.5 mg base)/3 mL nebulization soln lisinopril 20 mg tablet 20 mg PO DAILY 05/05/17 04/18/18 History loratadine 10 mg disintegrating 10 mg PO DAILY 05/05/17 04/18/18 History tablet metformin 500 mg tablet 500 mg PO BID 05/05/17 04/18/18 History nicotine 21 mg/24 hr daily 21 mg TRANSDERMA DAILY 05/05/17 04/18/18 History transdermal patch umeclidinium 62.5 mcg/actuation 1 puff INHALATION DAILY 05/05/17 04/18/18 History blister powder for inhalation hydrocodone 5 mg-acetaminophen 325 1 tab PO Q6H PRN 09/23/17 04/18/18 History mg tablet Benzonatate [Tessalon Perle 100mg 100 mg PO TID 04/09/18 04/18/18 History Cap] Ergocalciferol (Vitamin D2) 50,000 unit PO WEEKLY 04/09/18 04/18/18 History [Vitamin D2] Allergies Allergy/AdvReac Type Severity Reaction Status Date / Time codeine [CODEINE] Allergy Unknown NA-NAUSEA/V Verified 10/01/17 10:16 OMITING diphenhydramine Allergy Unknown I-RASH Verified 10/01/17 10:16 [DIPHENHYDRAMINE] Iodinated Contrast Media - Allergy Unknown Difficulty Verified 10/01/17 10:16 Oral and Breathing [IODINATED CONTRAST MEDIA - ORAL AND] Penicillins [PENICILLINS] Allergy Unknown RASH, Verified 10/01/17 10:[address] POWERS Sulfa (Sulfonamide Allergy Unknown NA-NAUSEA/V Verified 10/01/17 10:16 Antibiotics) OMITING [SULFA (SULFONAMIDE ANTIBIOTICS)] aspirin Allergy Rash Verified 10/01/17 10:16 fluconazole [From Diflucan] Allergy Rash Verified 10/01/17 10:16 oxycodone [From Percocet] Allergy Rash Verified 10/01/17 10:16 zolmitriptan [From Zomig] Allergy Rash Verified 10/01/17 10:16 Exam Vital signs and Labs for Last 24 Hours: Temp Pulse Resp BP Pulse Ox 98.4 F 63 20 182/69 H 92 L 04/19/18 08:00 04/19/18 08:00 04/19/18 08:00 04/19/18 08:00 04/19/18 08:00 Laboratory Results - last 24 hr 04/18/18 15:32: Specimen Source R brachial, O2 % 5lpm, ABG pH 7.46 H, ABG pCO2 40.9, ABG pO2 64.7 L, ABG HCO3 28.4 H, ABG Total CO2 29.7 H, ABG O2 Saturation 92, ABG Base Excess 4.6 H, Alex Test N/a 04/18/18 15:35: Influenza Type A Ag Negative, Influenza Type B Ag Negative 04/18/18 15:35: Urine Color Yellow, Urine Appearance Clear, Urine pH 8.0, Ur Specific [place] 1.010, Urine Protein Negative, Urine Glucose (UA) Negative, Urine Ketones Negative, Urine Blood Negative, Urine Nitrate Negative, Urine Bilirubin Negative, Urine Urobilinogen 0.2, Ur Leukocyte Esterase Negative, Urin e WBC Occasional, Ur Squamous Epith Cells Occasional, Urine Bacteria Trace 04/18/18 16:14: WBC 11.7 H, RBC 4.53, Hgb 10.2 L, Hct 32.8 L, MCV 72.4 L, MCH 22.5 L, MCHC 31.1 L, RDW 19.1 H, Plt Count 255, MPV 8.0, Neut % (Auto) 82.1 H, Lymph % (Auto) 9.5 L, [place] % (Auto) 5.9, Eos % (Auto) 2.3, Baso % (Auto) 0.2, Neut # (Auto) 9.6 H, Lymph # (Auto) 1.1, [place] # (Auto) 0.7, Eos # (Auto) 0.3, Baso # (Auto) 0.0 04/18/18 16:14: Sodium 138, Potassium 3.4 L, Chloride 101, Carbon Dioxide 31, Anion Gap 5.9, BUN 6 L, Creatinine 0.70, Estimated Creat Clear 50, Estimated GFR 84, Est GFR ( Amer) 101, Glucose 117 H, Calcium 7.9 L, Total Bilirubin 0.6, AST 10 L, ALT 12, Alkaline Phosphatase 94, Total Creatine Kinase 32, CK-MB (CK-2) 0.9 D, CK-MB (CK-2) Rel Index 2.8, Troponin I 0.03, Total Protein 6.0 L, Albumin 2.3 L, Globulin 3.7 H, Albumin/Globulin Ratio 0.6 L 04/18/18 16:14: B-Natriuretic Peptide 159 H 04/18/18 16:14: Lactate 0.4 04/19/18 06:35: WBC 8.6 D, RBC 4.65, Hgb 10.4 L, Hct 34.5 L, MCV 74.3 L, MCH 22.4 L, MCHC 30.2 L, RDW 19.0 H, Plt Count 248, MPV 7.2 L, Neut % (Auto) 90.5 H, Lymph % (Auto) 6.4 L, [place] % (Auto) 2.5, Eos % (Auto) 0.2, Baso % (Auto) 0.4, Neut # (Auto) 7.8, Lymph # (Auto) 0.6 L, [place] # (Auto) 0.2, Eos # (Auto) 0.0, Baso # (Auto) 0.0, Total Counted 100, Neutrophils % (Manual) 92 H, Lymphocytes % (Manual) 6 L, Monocytes % (Manual) 2, Platelet Estimate Normal 04/19/18 06:35: Sodium 141, Potassium 3.5, Chloride 102, Carbon Dioxide 31, Anion Gap 11.5, BUN 7, Creatinine 0.72, Estimated Creat Clear 53, Estimated GFR 81, Est GFR ( Amer) 98, Glucose 179 H D, Calcium 7.9 L I & O for Last 24 hours: Intake & Output 04/16/18 04/17/18 04/18/18 04/19/18 11:59 11:59 11:59 11:59 Intake Total 2080 Output Total 300 / 300 Balance 178 / 178 Weight 134 lb 4 oz Microbiology Reports for the Last 24 Hours: Microbiology 04/19/18 07:00 Sputum - Expectorated Sputum Gram Stain - Final - Constitutional no acute distress - *Routine HEENT Exam Head: Present: normocephalic Eye: Present: PERRL ENT: Present: mucous membranes moist - *Routine Neck Exam Present: supple. Absent: lymphadenopathy - *Routine Respiratory Exam Present: rhonchi, wheezes, crackles, diminished air movement - *Routine Cardiovascular Exam Present: murmur Comments: Pacemaker - *Routine Abdominal Exam Present: soft, normoactive bowel sounds. Absent: tenderness - *Routine Extremities Exam Absent: cyanosis, clubbing, edema - *Routine Skin Exam Present: warm. Absent: rash - *Routine Neurological Exam Present: alert, oriented X3 - Routine Psychiatric Exam Present: normal affect Assessment and Plan - Assessment and plan all Dx Assessment and Plan for all problems:: Rounded with Dr. Dill all orders per Fuentes Discussed patient's history of CHF with Renaldo will do a one-time dose of IV Lasix to see results.
--- NOTE | 2018-04-19 09:56 | Pharmacy Consult Notes ---
- Pharmacy Consult Date: 04/19/18 Time: 09:55 Referring provider: DR. JEONG Reason for Consult:: VANCOMYCIN DOSING Allergies and ADEs:: Allergies Allergy/AdvReac Type Severity Reaction Status Date / Time codeine [CODEINE] Allergy Unknown NA-NAUSEA/V Verified 10/01/17 10:16 OMITING diphenhydramine Allergy Unknown I-RASH Verified 10/01/17 10:16 [DIPHENHYDRAMINE] Iodinated Contrast Media - Allergy Unknown Difficulty Verified 10/01/17 10:16 Oral and Breathing [IODINATED CONTRAST MEDIA - ORAL AND] Penicillins [PENICILLINS] Allergy Unknown RASH, Verified 10/01/17 10:[address] POWERS Sulfa (Sulfonamide Allergy Unknown NA-NAUSEA/V Verified 10/01/17 10:16 Antibiotics) OMITING [SULFA (SULFONAMIDE ANTIBIOTICS)] aspirin Allergy Rash Verified 10/01/17 10:16 fluconazole [From Diflucan] Allergy Rash Verified 10/01/17 10:16 oxycodone [From Percocet] Allergy Rash Verified 10/01/17 10:16 zolmitriptan [From Zomig] Allergy Rash Verified 10/01/17 10:16 Home Medications:: Home Medications Medication Instructions Recorded Confirmed Type albuterol sulfate HFA 90 2 puff INHALATION Q6H 05/05/17 04/18/18 History mcg/actuation aerosol inhaler aspirin 81 mg tablet,delayed 81 mg PO DAILY 05/05/17 04/18/18 History release conjugated estrogens 0.625 mg 0.625 mg PO DAILY tab 05/05/17 04/18/18 History tablet furosemide 20 mg tablet 20 mg PO DAILY 05/05/17 04/18/18 History ipratropium-albuterol 0.5 mg-3 3 ml INHALATION QID ml 05/05/17 04/18/18 History mg(2.5 mg base)/3 mL nebulization soln lisinopril 20 mg tablet 20 mg PO DAILY 05/05/17 04/18/18 History loratadine 10 mg disintegrating 10 mg PO DAILY 05/05/17 04/18/18 History tablet metformin 500 mg tablet 500 mg PO BID 05/05/17 04/18/18 History nicotine 21 mg/24 hr daily 21 mg TRANSDERMA DAILY 05/05/17 04/18/18 History transdermal patch umeclidinium 62.5 mcg/actuation 1 puff INHALATION DAILY 05/05/17 04/18/18 History blister powder for inhalation hydrocodone 5 mg-acetaminophen 325 1 tab PO Q6H PRN 09/23/17 04/18/18 History mg tablet Benzonatate [Tessalon Perle 100mg 100 mg PO TID 04/09/18 04/18/18 History Cap] Ergocalciferol (Vitamin D2) 50,000 unit PO WEEKLY 04/09/18 04/18/18 History [Vitamin D2] Height: 1.55 m Weight: 60.895 kg Laboratory Results:: Laboratory Results - last 24 hr 04/18/18 15:32: Specimen Source R brachial, O2 % 5lpm, ABG pH 7.46 H, ABG pCO2 40.9, ABG pO2 64.7 L, ABG HCO3 28.4 H, ABG Total CO2 29.7 H, ABG O2 Saturation 92, ABG Base Excess 4.6 H, Alex Test N/a 04/18/18 15:35: Influenza Type A Ag Negative, Influenza Type B Ag Negative 04/18/18 15:35: Urine Color Yellow, Urine Appearance Clear, Urine pH 8.0, Ur Specific [place] 1.010, Urine Protein Negative, Urine Glucose (UA) Negative, Urine Ketones Negative, Urine Blood Negative, Urine Nitrate Negative, Urine Bilirubin Negative, Urine Urobilinogen 0.2, Ur Leukocyte Esterase Negative, Urine WBC Occasional, Ur Squamous Epith Cells Occasional, Urine Bacteria Trace 04/18/18 16:14: WBC 11.7 H, RBC 4.53, Hgb 10.2 L, Hct 32.8 L, MCV 72.4 L, MCH 22.5 L, MCHC 31.1 L, RDW 19.1 H, Plt Count 255, MPV 8.0, Neut % (Auto) 82.1 H, Lymph % (Auto) 9.5 L, [place] % (Auto) 5.9, Eos % (Auto) 2.3, Baso % (Auto) 0.2, Neut # (Auto) 9.6 H, Lymph # (Auto) 1.1, [place] # (Auto) 0.7, Eos # (Auto) 0.3, Baso # (Auto) 0.0 04/18/18 16:14: Sodium 138, Potassium 3.4 L, Chloride 101, Carbon Dioxide 31, Anion Gap 5.9, BUN 6 L, Creatinine 0.70, Estimated Creat Clear 50, Estimated GFR 84, Est GFR ( Amer) 101, Glucose 117 H, Calcium 7.9 L, Total Bilirubin 0.6, AST 10 L, ALT 12, Alkaline Phosphatase 94, Total Creatine Kinase 32, CK-MB (CK-2) 0.9 D, CK-MB (CK-2) Rel Index 2.8, Troponin I 0.03, Total Protein 6.0 L, Albumin 2.3 L, Globulin 3.7 H, Albumin/Globulin Ratio 0.6 L 04/18/18 16:14: B-Natriuretic Peptide 159 H 04/18/18 16:14: Lactate 0.4 04/19/18 06:35: WBC 8.6 D, RBC 4.65, Hgb 10.4 L, Hct 34.5 L, MCV 74.3 L, MCH 22.4 L, MCHC 30.2 L, RDW 19.0 H, Plt Count 248, MPV 7.2 L, Neut % (Auto) 90.5 H, Lymph % (Auto) 6.4 L, [place] % (Auto) 2.5, Eos % (Auto) 0.2, Baso % (Auto) 0.4, Neut # (Auto) 7.8, Lymph # (Auto) 0.6 L, [place] # (Auto) 0.2, Eos # (Auto) 0.0, Baso # (Auto) 0.0, Total Counted 100, Neutrophils % (Manual) 92 H, Lymphocytes % (Manual) 6 L, Monocytes % (Manual) 2, Platelet Estimate Normal 04/19/18 06:35: Sodium 141, Potassium 3.5, Chloride 102, Carbon Dioxide 31, Anion Gap 11.5, BUN 7, Creatinine 0.72, Estimated Creat Clear 53, Estimated GFR 81, Est GFR ( Amer) 98, Glucose 179 H D, Calcium 7.9 L Medical History: Reports:: Anxiety, Arrhythmia, Congestive Heart Failure, Chronic Obstructive Pulmonary Disease (COPD), Coronary Artery Disease, Depression, Diabetes Mellitus Type 2, Heart Murmur, Hyperlipidemia, Hypertension, Internal Pacemaker, Palpitations, Peripheral Artery Disease, Peripheral Vascular Disease Denies:: Cancer, Diabetes Mellitus Type 1, MRSA Assessment and Plan - Assessment and plan all Dx Assessment and Plan for all problems:: BASED ON PATIENT FACTORS, RECOMMEND VANCOMYCIN 1,000MG IV EVERY 24 HOURS. PHARMACY WILL MONITOR AND ADJUST VANCOMYCIN DOSE APPROPRIATE. -RADHA SUNG, ESDRASD
[2018-04-20 07:18] LABS: Basophils % 0.1 % (0.1-2.0); Lymphocytes # 0.6 K/mm3 (0.7-4.5); Lymphocytes % 5.9 % (10-50); Mean Corpuscular HGB Conc 30.1 g/dL (31.8-35.4); Mean Corpuscular Hemoglobin 22.5 pg (27.0-31.2); Mean Corpuscular Volume 74.5 fl (81-99); Mean Platelet Volume 6.9 fl (7.4-10.4); Monocytes # 0.3 K/mm3 (0.1-1.0); Monocytes % 2.5 % (1.7-9.3); Neutrophils # 9.9 K/mm3 (1.8-7.8); Neutrophils % 91.5 % (37.0-80.0); Platelet Count 241 K/mm3 (142-424); Red Cell Distribution Width 19.1 % (11.5-17.5); White Blood Count 10.8 K/mm3 (4.8-10.8)
[2018-04-20 07:28] LABS: Albumin Level 2.1 gm/dL (3.4-5.0); Albumin/Globulin Ratio 0.6 (1.1-1.8); Anion Gap 10.2 mEq/L (5-15); Bilirubin,Total 0.3 mg/dL (0.2-1.0); Calcium 7.5 mg/dL (8.5-10.1); Globulin 3.7 gm/dl (1.3-3.2); Potassium 3.2 mmoL/L (3.5-5.1); Total Protein,Serum 5.8 gm/dL (6.4-8.2)
[2018-04-20 07:43] LABS: Hemoglobin 9.2 g/dL (12.2-16.2); Red Blood Count 4.05 M/mm3 (4.20-5.40)
[2018-04-20 07:44] LABS: Hematocrit 30.1 % (37.0-47.0)
[2018-04-20 11:37] LABS: Lymphocytes % 4 % (10-50); Monocytes % 2 % (2-9); Neutrophils % 94 % (42-76); Total Cells Counted 100
--- NOTE | 2018-04-20 13:07 | Progress Note ---
Internal Medicine - PN: Subj *Date: 04/20/18 *Time: 08:00 Interval history: doing better - sitting up -more active - labs ok Exam Vital signs and Labs for Last 24 Hours: Temp Pulse Resp BP Pulse Ox 98.8 F 78 18 124/57 L 92 L 04/20/18 11:53 04/20/18 11:53 04/20/18 11:53 04/20/18 11:53 04/20/18 11:53 Laboratory Results - last 24 hr 04/19/18 16:29: POC Glucose 352 H* 04/19/18 20:01: POC Glucose 260 H 04/20/18 06:32: POC Glucose 197 H 04/20/18 06:45: WBC 10.8 D, RBC 4.05 L, Hgb 9.2 L, Hct 30.1 L, MCV 74.5 L, MCH 22.5 L, MCHC 30.1 L, RDW 19.1 H, Plt Count 241, MPV 6.9 L, Neut % (Auto) 91.5 H, Lymph % (Auto) 5.9 L, [place] % (Auto) 2.5, Eos % (Auto) 0.0 L, Baso % (Auto) 0.1, Neut # (Auto) 9.9 H, Lymph # (Auto) 0.6 L, [place] # (Auto) 0.3, Eos # (Auto) 0.0, Baso # (Auto) 0.0, Total Counted 100, Neutrophils % (Manual) 94 H, Lymphocytes % (Manual) 4 L, Monocytes % (Manual) 2, Platelet Estimate Normal 04/20/18 06:45: Sodium 138, Potassium 3.2 L, Chloride 99, Carbon Dioxide 32, Anion Gap 10.2, BUN 10 D, Creatinine 0.95 D, Estimated Creat Clear 54, Estimated GFR 59, Est GFR ( Amer) 71 D, Glucose 199 H, Calcium 7.5 L, Total Bilirubin 0.3, AST 7 L D, ALT 13, Alkaline Phosphatase 76, Total Protein 5.8 L, Albumin 2.1 L, Globulin 3.7 H, Albumin/Globulin Ratio 0.6 L I & O for Last 24 hours: Intake & Output 04/18/18 04/19/18 04/20/18 04/21/18 11:59 11:59 11:59 11:59 Intake Total 2080 720 / 720 Output Total 300 / 300 750 / 750 Balance 1781 / 1781 -30 / -30 Weight 134 lb 4 oz 136 lb 3 oz Microbiology Reports for the Last 24 Hours: Microbiology 04/19/18 07:00 Sputum - Expectorated Sputum Gram Stain - Final 04/19/18 07:00 Sputum - Expectorated Sputum Sputum Culture - Preliminary - Constitutional no acute distress - *Routine HEENT Exam Head: Present: normocephalic Eye: Present: EOMI, PERRL ENT: Present: mucous membranes dry - *Routine Neck Exam Present: supple. Absent: JVD - *Routine Respiratory Exam Present: prolonged expiratory phase, rhonchi - *Routine Cardiovascular Exam Present: RRR, murmur - *Routine Abdominal Exam Present: soft - *Routine Extremities Exam Absent: calf tenderness - *Routine Skin Exam Present: intact - *Routine Neurological Exam Present: alert, oriented X3, CN II-XII intact - Routine Psychiatric Exam Present: normal affect
[2018-04-21 07:25] LABS: Basophils % 0.1 % (0.1-2.0); Hematocrit 29.4 % (37.0-47.0); Lymphocytes # 0.6 K/mm3 (0.7-4.5); Lymphocytes % 5.2 % (10-50); Mean Corpuscular HGB Conc 30.5 g/dL (31.8-35.4); Mean Corpuscular Hemoglobin 22.7 pg (27.0-31.2); Mean Corpuscular Volume 74.5 fl (81-99); Mean Platelet Volume 6.9 fl (7.4-10.4); Monocytes # 0.4 K/mm3 (0.1-1.0); Monocytes % 3.1 % (1.7-9.3); Neutrophils # 10.7 K/mm3 (1.8-7.8); Neutrophils % 91.5 % (37.0-80.0); Platelet Count 259 K/mm3 (142-424); Red Blood Count 3.95 M/mm3 (4.20-5.40); Red Cell Distribution Width 19.2 % (11.5-17.5); White Blood Count 11.7 K/mm3 (4.8-10.8)
[2018-04-21 07:53] LABS: Albumin/Globulin Ratio 0.6 (1.1-1.8); Anion Gap 10.3 mEq/L (5-15); Bilirubin,Total 0.2 mg/dL (0.2-1.0); Calcium 7.3 mg/dL (8.5-10.1); Globulin 3.3 gm/dl (1.3-3.2); Potassium 3.3 mmoL/L (3.5-5.1); Total Protein,Serum 5.3 gm/dL (6.4-8.2)
[2018-04-21 08:29] LABS: Lymphocytes % 5 % (10-50); Monocytes % 3 % (2-9); Neutrophils % 92 % (42-76); Total Cells Counted 100
--- NOTE | 2018-04-21 09:30 | Progress Note ---
Internal Medicine - PN: Subj *Date: 04/21/18 *Time: 09:29 Exam Vital signs and Labs for Last 24 Hours: Temp Pulse Resp BP Pulse Ox 98.2 F 79 15 132/56 L 96 04/21/18 08:00 04/21/18 08:00 04/21/18 08:00 04/21/18 08:00 04/21/18 08:00 Laboratory Results - last 24 hr 04/20/18 06:45: Total Counted 100, Neutrophils % (Manual) 94 H, Lymphocytes % (Manual) 4 L, Monocytes % (Manual) 2, Platelet Estimate Normal 04/20/18 12:19: POC Glucose 256 H 04/20/18 17:07: POC Glucose 189 H 04/20/18 21:04: POC Glucose 207 H 04/20/18 22:45: Vancomycin Trough 9.3 L 04/21/18 06:12: POC Glucose 211 H 04/21/18 06:45: WBC 11.7 H, RBC 3.95 L, Hgb 9.0 L, Hct 29.4 L, MCV 74.5 L, MCH 22.7 L, MCHC 30.5 L, RDW 19.2 H, Plt Count 259, MPV 6.9 L, Neut % (Auto) 91.5 H, Lymph % (Auto) 5.2 L, [place] % (Auto) 3.1, Eos % (Auto) 0.0 L, Baso % (Auto) 0.1, Neut # (Auto) 10.7 H, Lymph # (Auto) 0.6 L, [place] # (Auto) 0.4, Eos # (Auto) 0.0, Baso # (Auto) 0.0, Total Counted 100, Neutrophils % (Manual) 92 H, Lymphocytes % (Manual) 5 L, Monocytes % (Manual) 3, Platelet Estimate Normal 04/21/18 06:45: Sodium 135 L, Potassium 3.3 L, Chloride 97 L, Carbon Dioxide 31, Anion Gap 10.3, BUN 16 D, Creatinine 1.13 H, Estimated Creat Clear 49, Estimated GFR 48 L, Est GFR ( Amer) 58 L, Glucose 198 H, Calcium 7.3 L, Total Bilirubin 0.2, AST 6 L, ALT 12, Alkaline Phosphatase 64, Total Protein 5.3 L, Albumin 2.0 L, Globulin 3.3 H, Albumin/Globulin Ratio 0.6 L I & O for Last 24 hours: Intake & Output 04/18/18 04/19/18 04/20/18 04/21/18 11:59 11:59 11:59 11:59 Intake Total 2081 / 2081 870 / 870 773 / 773 Output Total 300 / 300 750 / 750 Balance 1781 / 1781 120 / 120 773 / 773 Weight 134 lb 4 oz 136 lb 3 oz 141 lb 1 oz Microbiology Reports for the Last 24 Hours: Microbiology 04/19/18 07:00 Sputum - Expectorated Sputum Gram Stain - Final 04/19/18 07:00 Sputum - Expectorated Sputum Sputum Culture - Preliminary 04/18/18 16:14 Blood Blood Culture - Preliminary NO GROWTH AFTER 48 HOURS 04/18/18 16:14 Blood Blood Culture - Preliminary NO GROWTH AFTER 48 HOURS - Constitutional no acute distress - *Routine HEENT Exam Head: Present: normocephalic Eye: Present: PERRL ENT: Present: mucous membranes moist - *Routine Neck Exam Present: supple. Absent: lymphadenopathy - *Routine Respiratory Exam Present: rhonchi, wheezes, diminished air movement - *Routine Cardiovascular Exam Present: RRR - *Routine Abdominal Exam Present: soft, normoactive bowel sounds. Absent: tenderness - *Routine Extremities Exam Absent: cyanosis, clubbing, edema - *Routine Skin Exam Present: warm. Absent: rash - *Routine Neurological Exam Present: alert, oriented X3 - Routine Psychiatric Exam Present: normal affect Assessment and Plan - Assessment and plan all Dx Assessment and Plan for all problems:: Rounded with Dr. Dill all orders per Fuentes Patient to be up out of bed walking around the room today Physical therapy consult Increase steroids Possible discharge in a.m.
--- NOTE | 2018-04-21 11:14 | Pharmacy Consult Notes ---
- Pharmacy Consult Date: 04/21/18 Time: 11:12 Referring provider: REAL Reason for Consult:: VANCOMYCIN THERAPY Allergies and ADEs:: Allergies Allergy/AdvReac Type Severity Reaction Status Date / Time codeine [CODEINE] Allergy Unknown NA-NAUSEA/V Verified 10/01/17 10:16 OMITING diphenhydramine Allergy Unknown I-RASH Verified 10/01/17 10:16 [DIPHENHYDRAMINE] Iodinated Contrast Media - Allergy Unknown Difficulty Verified 10/01/17 10:16 Oral and Breathing [IODINATED CONTRAST MEDIA - ORAL AND] Penicillins [PENICILLINS] Allergy Unknown RASH, Verified 10/01/17 10:[address] [place] [address] POWERS Sulfa (Sulfonamide Allergy Unknown NA-NAUSEA/V Verified 10/01/17 10:16 Antibiotics) OMITING [SULFA (SULFONAMIDE ANTIBIOTICS)] aspirin Allergy Rash Verified 10/01/17 10:16 fluconazole [From Diflucan] Allergy Rash Verified 10/01/17 10:16 oxycodone [From Percocet] Allergy Rash Verified 10/01/17 10:16 zolmitriptan [From Zomig] Allergy Rash Verified 10/01/17 10:16 Home Medications:: Home Medications Medication Instructions Recorded Confirmed Type albuterol sulfate HFA 90 2 puff INHALATION Q6H 05/05/17 04/18/18 History mcg/actuation aerosol inhaler aspirin 81 mg tablet,delayed 81 mg PO DAILY 05/05/17 04/18/18 History release conjugated estrogens 0.625 mg 0.625 mg PO DAILY tab 05/05/17 04/18/18 History tablet furosemide 20 mg tablet 20 mg PO DAILY 05/05/17 04/18/18 History lisinopril 20 mg tablet 20 mg PO DAILY 05/05/17 04/18/18 History loratadine 10 mg disintegrating 10 mg PO DAILY 05/05/17 04/18/18 History tablet metformin 500 mg tablet 500 mg PO BID 05/05/17 04/18/18 History nicotine 21 mg/24 hr daily 21 mg TRANSDERMA DAILY 05/05/17 04/18/18 History transdermal patch umeclidinium 62.5 mcg/actuation 1 puff INHALATION DAILY 05/05/17 04/18/18 History blister powder for inhalation hydroxyzine HCl 25 mg tablet 25 mg PO TID-QID PRN #90 tab 06/29/17 04/18/18 Rx hydrocodone 5 mg-acetaminophen 325 1 tab PO Q6H PRN 09/23/17 04/18/18 History mg tablet diltiazem ER (XR/XT) 120 mg 120 mg PO DAILY #30 cap 01/30/18 04/18/18 Rx capsule,extended release 24 hr, controlled omeprazole 40 mg capsule,delayed 40 mg PO DAILY #30 cap 01/30/18 04/18/18 Rx release sertraline 50 mg tablet 50 mg PO DAILY #30 tab 01/30/18 04/18/18 Rx Benzonatate [Tessalon Perle 100mg 100 mg PO TID 04/09/18 04/18/18 History Cap] Ergocalciferol (Vitamin D2) 50,000 unit PO WEEKLY 04/09/18 04/18/18 History [Vitamin D2] Promethazine HCl [Phenergan 12.5mg 12.5 mg PO DAILY PRN #15 tab 04/12/18 04/18/18 Rx tablet] Tizanidine HCl [Zanaflex] 4 mg PO BID PRN #60 tab 04/12/18 04/18/18 Rx Ipratropium/Albuterol Sulfate 3 ml IH QID 04/19/18 04/19/18 History [Duoneb 3mL neb] Height: 1.55 m Weight: 63.985 kg Laboratory Results:: Laboratory Results - last 24 hr 04/20/18 06:45: Total Counted 100, Neutrophils % (Manual) 94 H, Lymphocytes % (Manual) 4 L, Monocytes % (Manual) 2, Platelet Estimate Normal 04/20/18 12:19: POC Glucose 256 H 04/20/18 17:07: POC Glucose 189 H 04/20/18 21:04: POC Glucose 207 H 04/20/18 22:45: Vancomycin Trough 9.3 L 04/21/18 06:12: POC Glucose 211 H 04/21/18 06:45: WBC 11.7 H, RBC 3.95 L, Hgb 9.0 L, Hct 29.4 L, MCV 74.5 L, MCH 22.7 L, MCHC 30.5 L, RDW 19.2 H, Plt Count 259, MPV 6.9 L, Neut % (Auto) 91.5 H, Lymph % (Auto) 5.2 L, [place] % (Auto) 3.1, Eos % (Auto) 0.0 L, Baso % (Auto) 0.1, Neut # (Auto) 10.7 H, Lymph # (Auto) 0.6 L, [place] # (Auto) 0.4, Eos # (Auto) 0.0, Baso # (Auto) 0.0, Total Counted 100, Neutrophils % (Manual) 92 H, Lymphocytes % (Manual) 5 L, Monocytes % (Manual) 3, Platelet Estimate Normal 04/21/18 06:45: Sodium 135 L, Potassium 3.3 L, Chloride 97 L, Carbon Dioxide 31, Anion Gap 10.3, BUN 16 D, Creatinine 1.13 H, Estimated Creat Clear 49, Estimated GFR 48 L, Est GFR ( Amer) 58 L, Glucose 198 H, Calcium 7.3 L, Total Bilirubin 0.2, AST 6 L, ALT 12, Alkaline Phosphatase 64, Total Protein 5.3 L, Albumin 2.0 L, Globulin 3.3 H, Albumin/Globulin Ratio 0.6 L Medical History: Reports:: Anxiety, Arrhythmia, Congestive Heart Failure, Chronic Obstructive Pulmonary Disease (COPD), Coronary Artery Disease, Depression, Diabetes Mellitus Type 2, Heart Murmur, Hyperlipidemia, Hypertension, Internal Pacemaker, Palpitations, Peripheral Artery Disease, Peripheral Vascular Disease Denies:: Cancer, Diabetes Mellitus Type 1, MRSA Assessment and Plan - Assessment and plan all Dx Assessment and Plan for all problems:: BASED ON VANCOMYCIN TROUGH = 9.3 WILL INCREASE DOSING INTERVAL TO [id number]. WILL FOLLOW PATIENT DAILY AND ADJUST NECESSARY.
[2018-04-22 06:50] LABS: Basophils % 0.1 % (0.1-2.0); Eosinophils % 0.1 % (0.1-12.0); Hematocrit 30.2 % (37.0-47.0); Hemoglobin 9.3 g/dL (12.2-16.2); Lymphocytes # 0.7 K/mm3 (0.7-4.5); Lymphocytes % 7.3 % (10-50); Mean Corpuscular HGB Conc 30.7 g/dL (31.8-35.4); Mean Corpuscular Hemoglobin 22.9 pg (27.0-31.2); Mean Corpuscular Volume 74.6 fl (81-99); Mean Platelet Volume 7.2 fl (7.4-10.4); Monocytes # 0.3 K/mm3 (0.1-1.0); Monocytes % 2.6 % (1.7-9.3); Platelet Count 265 K/mm3 (142-424); Red Blood Count 4.05 M/mm3 (4.20-5.40); Red Cell Distribution Width 19.4 % (11.5-17.5)
[2018-04-22 07:06] LABS: Albumin/Globulin Ratio 0.6 (1.1-1.8); Anion Gap 7.6 mEq/L (5-15); Bilirubin,Total 0.3 mg/dL (0.2-1.0); Calcium 7.3 mg/dL (8.5-10.1); Globulin 3.4 gm/dl (1.3-3.2); Potassium 3.6 mmoL/L (3.5-5.1); Total Protein,Serum 5.4 gm/dL (6.4-8.2)
--- NOTE | 2018-04-22 08:17 | Progress Note ---
Internal Medicine - PN: Subj *Date: 04/22/18 *Time: 08:17 Exam Vital signs and Labs for Last 24 Hours: Temp Pulse Resp BP Pulse Ox 97.7 F 71 18 136/65 91 L 04/22/18 08:00 04/22/18 08:00 04/22/18 08:00 04/22/18 08:00 04/22/18 08:00 Laboratory Results - last 24 hr 04/21/18 06:45: Total Counted 100, Neutrophils % (Manual) 92 H, Lymphocytes % (Manual) 5 L, Monocytes % (Manual) 3, Platelet Estimate Normal 04/21/18 11:33: POC Glucose 188 H 04/21/18 16:41: POC Glucose 275 H 04/21/18 20:56: POC Glucose 164 H 04/22/18 06:25: WBC 10.0, RBC 4.05 L, Hgb 9.3 L, Hct 30.2 L, MCV 74.6 L, MCH 22.9 L, MCHC 30.7 L, RDW 19.4 H, Plt Count 265, MPV 7.2 L, Neut % (Auto) 90.0 H, Lymph % (Auto) 7.3 L, [place] % (Auto) 2.6, Eos % (Auto) 0.1, Baso % (Auto) 0.1, Neut # (Auto) 9.0 H, Lymph # (Auto) 0.7, [place] # (Auto) 0.3, Eos # (Auto) 0.0, Baso # (Auto) 0.0 04/22/18 06:25: Sodium 134 L, Potassium 3.6, Chloride 99, Carbon Dioxide 31, Anion Gap 7.6, BUN 22 H D, Creatinine 1.17 H, Estimated Creat Clear 48, Est imated GFR 46 L, Est GFR ( Amer) 56 L, Glucose 195 H, Calcium 7.3 L, Total Bilirubin 0.3, AST 9 L D, ALT 14, Alkaline Phosphatase 64, Total Protein 5.4 L, Albumin 2.0 L, Globulin 3.4 H, Albumin/Globulin Ratio 0.6 L 04/22/18 06:33: POC Glucose 184 H I & O for Last 24 hours: Intake & Output 04/19/18 04/20/18 04/21/18 04/22/18 23:59 23:59 23:59 23:59 Intake Total 2261 / 2261 1163 / 1163 240 / 240 240 / 240 Output Total 700 / 700 350 / 350 Balance 1561 / 1561 813 / 813 240 / 240 240 / 240 Weight 60.895 kg 61.774 kg 63.985 kg 65.337 kg Microbiology Reports for the Last 24 Hours: Microbiology 04/19/18 07:00 Sputum - Expectorated Sputum Gram Stain - Final 04/19/18 07:00 Sputum - Expectorated Sputum Sputum Culture - Preliminary The patient's infection will respond to the chosen ABx?: Yes Is the patient receiving the right drug, dose, and route?: Yes Could a more targeted ABx be ordered?: No
[2018-04-22 09:07] LABS: Lymphocytes % 7 % (10-50); Monocytes % 1 % (2-9); Neutrophils % 90 % (42-76); Total Cells Counted 100
[2018-04-22 09:08] LABS: Hypochromasia 2+
--- NOTE | 2018-04-22 09:11 | Discharge Summary ---
General - General Admission date:: 04/18/18 Discharge date: 04/22/18 HPI HPI: 67-year-old female presents to the ER with complaints of shortness of breath. Patient was just discharged 1 week ago with pneumonia. Patient states she never really recovered from her pneumonia. Patient has a history of COPD and is a smoker. Patient admitted for pneumonia started on IV antibiotics. Patient uses home O2. Hospital Course Hospital Course: chest xray:IMPRESSION: 1. Increasing airspace disease in the right lung base with small right pleural effusion slightly increased in size. 2. Improvement in CHF Today patient is eager to be discharged home. Patient states she went all night without needing her oxygen. Is complaining of a sore mouth. Will discharge home follow-up in the office. Will discharge home on Levaquin, nicotine patches patient is requesting a refill on her Phenergan and nystatin suspension. Sample of Brio given to patient to use with her incruse. Objective Vital signs: Temp Pulse Resp BP Pulse Ox 97.7 F 71 18 136/65 91 L 04/22/18 08:00 04/22/18 08:00 04/22/18 08:00 04/22/18 08:00 04/22/18 08:00 no acute distress - *Routine HEENT Exam Head: Present: normocephalic Eye: Present: PERRL ENT: Present: mucous membranes moist - *Routine Respiratory Exam Present: CTA bilaterally, wheezes - *Routine Cardiovascular Exam Present: RRR - *Routine Abdominal Exam Present: soft, normoactive bowel sounds - *Routine Skin Exam Present: intact - *Routine Neurological Exam Present: alert, oriented X3 - Routine Psychiatric Exam Present: normal affect Results Labs on day of discharge: Labs from last 24 hours 04/22/18 04/22/18 04/22/18 06:33 06:25 06:25 WBC 10.0 RBC 4.05 L Hgb 9.3 L Hct 30.2 L MCV 74.6 L MCH 22.9 L MCHC 30.7 L RDW 19.4 H Plt Count 265 MPV 7.2 L Neut % (Auto) 90.0 H Lymph % (Auto) 7.3 L [place] % (Auto) 2.6 Eos % (Auto) 0.1 Baso % (Auto) 0.1 Neut # (Auto) 9.0 H Lymph # (Auto) 0.7 [place] # (Auto) 0.3 Eos # (Auto) 0.0 Baso # (Auto) 0.0 Total Counted 100 Neutrophils % (Manual) 90 H Band Neutrophils % 1.0 Lymphocytes % (Manual) 7 L Atypical Lymphs % 1.0 Monocytes % (Manual) 1 L Platelet Estimate Normal Hypochromasia 2+ Microcytosis 1+ Sodium 134 L Potassium 3.6 Chloride 99 Carbon Dioxide 31 Anion Gap 7.6 BUN 22 H D Creatinine 1.17 H Estimated Creat Clear 48 Estimated GFR 46 L Est GFR ( Amer) 56 L Glucose 195 H POC Glucose 184 H Calcium 7.3 L Total Bilirubin 0.3 AST 9 L D ALT 14 Alkaline Phosphatase 64 Total Protein 5.4 L Albumin 2.0 L Globulin 3.4 H Albumin/Globulin Ratio 0.6 L 04/21/18 04/21/18 04/21/18 20:56 16:41 11:33 WBC RBC Hgb Hct MCV MCH MCHC RDW Plt Count MPV Neut % (Auto) Lymph % (Auto) [place] % (Auto) Eos % (Auto) Baso % (Auto) Neut # (Auto) Lymph # (Auto) [place] # (Auto) Eos # (Auto) Baso # (Auto) Total Counted Neutrophils % (Manual) Band Neutrophils % Lymphocytes % (Manual) Atypical Lymphs % Monocytes % (Manual) Platelet Estimate Hypochromasia Microcytosis Sodium Potassium Chloride Carbon Dioxide Anion Gap BUN Creatinine Estimated Creat Clear Estimated GFR Est GFR ( Amer) Glucose POC Glucose 164 H 275 H 188 H Calcium Total Bilirubin AST ALT Alkaline Phosphatase Total Protein Albumin Globulin Albumin/Globulin Ratio Preliminary micro results at discharge 04/18/18 16:14 Blood Culture - Preliminary Blood NO GROWTH AFTER 48 HOURS 04/18/18 16:14 Blood Culture - Preliminary Blood NO GROWTH AFTER 48 HOURS - Additional Comments Rounded with Dr. Dill all orders per Fuentes Discharge Plan - Patient Discharge Instructions ACTIVITY: Continue current activity DIET: continue same diet Patient Instructions: DI for Chronic Obstructive Pulmonary Disease, DI for Pneumonia -- Adult - Follow up Plan Follow up with: Madhuri Chin APRN [Nurse Practitioner] - 04/28/18 Disposition: Home, Self-Group Home Medications: Home Medications Medication Instructions Recorded Confirmed Type albuterol sulfate HFA 90 2 puff INHALATION Q6H 05/05/17 04/18/18 History mcg/actuation aerosol inhaler aspirin 81 mg tablet,delayed 81 mg PO DAILY 05/05/17 04/18/18 History release conjugated estrogens 0.625 mg 0.625 mg PO DAILY tab 05/05/17 04/18/18 History tablet furosemide 20 mg tablet 20 mg PO DAILY 05/05/17 04/18/18 History lisinopril 20 mg tablet 20 mg PO DAILY 05/05/17 04/18/18 History loratadine 10 mg disintegrating 10 mg PO DAILY 05/05/17 04/18/18 History tablet metformin 500 mg tablet 500 mg PO BID 05/05/17 04/18/18 History umeclidinium 62.5 mcg/actuation 1 puff INHALATION DAILY 05/05/17 04/18/18 History blister powder for inhalation hydroxyzine HCl 25 mg tablet 25 mg PO TID-QID PRN #90 tab 06/29/17 04/18/18 Rx hydrocodone 5 mg-acetaminophen 325 1 tab PO Q6H PRN 09/23/17 04/18/18 History mg tablet diltiazem ER (XR/XT) 120 mg 120 mg PO DAILY #30 cap 01/30/18 04/18/18 Rx capsule,extended release 24 hr, controlled omeprazole 40 mg capsule,delayed 40 mg PO DAILY #30 cap 01/30/18 04/18/18 Rx release sertraline 50 mg tablet 50 mg PO DAILY #30 tab 01/30/18 04/18/18 Rx Benzonatate [Tessalon Perle 100mg 100 mg PO TID 04/09/18 04/18/18 History Cap] Ergocalciferol (Vitamin D2) 50,000 unit PO WEEKLY 04/09/18 04/18/18 History [Vitamin D2] Tizanidine HCl [Zanaflex] 4 mg PO BID PRN #60 tab 04/12/18 04/18/18 Rx Ipratropium/Albuterol Sulfate 3 ml IH QID 04/19/18 04/19/18 History [Duoneb 3mL neb] Fluticasone/Vilanterol [Breo 1 each IH DAILY 30 Days #1 04/22/18 Rx Ellipta 100-25 Mcg INH] blst.w.dev Nicotine [Nicotine Patch 21 mg TRANSDERMA DAILY 30 Days #30 04/22/18 Rx 21mg/24hrs] patch.td24 Nystatin [Nystatin Susp 500,000 500,000 unit PO QID 7 Days #1 udc 04/22/18 Rx Units/5mL Udc] Promethazine HCl [Phenergan 12.5mg 12.5 mg PO DAILY PRN 15 Days #15 04/22/18 Rx tablet] tab Umeclidinium [place] [Incruse 62.5 mcg IH DAILY 30 Days #1 04/22/18 Rx Ellipta] blst.w.dev levoFLOXacin [Levaquin 750mg 750 mg PO Q48H 5 Days #5 tablet 04/22/18 Rx tablet] Prescriptions/Medication Reconciliation: New Benzonatate [Benzonatate 100mg cap] 100 mg PO TID capsule Ergocalciferol (Vitamin D2) [Drisdol 50,000 units (1.25mg) capsule] 50,000 unit PO WEEKLY capsule Insulin Lispro [HumaLOG 100 units/mL 3mL vial (SSI)] 0 unit SQ ACHS ml Ipratropium/Albuterol Sulfate [Duoneb 3mL neb] 3 ml IH QIDRT ampul.neb levoFLOXacin [Levaquin 750mg tablet] 750 mg PO Q48H 5 Days #5 tablet Nystatin [Nystatin Susp 500,000 Units/5mL Udc] 500,000 unit PO QID 7 Days #1 udc Umeclidinium [place] [Incruse Ellipta] 62.5 mcg IH DAILY 30 Days #1 blst. w.dev Fluticasone/Vilanterol [Breo Ellipta 100-25 Mcg INH] 1 each IH DAILY 30 Days #1 blst.w.dev Continue loratadine 10 mg disintegrating tablet 10 mg PO DAILY aspirin 81 mg tablet,delayed release 81 mg PO DAILY umeclidinium 62.5 mcg/actuation blister powder for inhalation 1 puff INHALATION DAILY lisinopril 20 mg tablet 20 mg PO DAILY metformin 500 mg tablet 500 mg PO BID conjugated estrogens 0.625 mg tablet 0.625 mg PO DAILY tab albuterol sulfate HFA 90 mcg/actuation aerosol inhaler 2 puff INHALATION Q6H diltiazem ER (XR/XT) 120 mg capsule,extended release 24 hr, controlled 120 mg PO DAILY #30 cap sertraline 50 mg tablet 50 mg PO DAILY #30 tab furosemide 20 mg tablet 20 mg PO DAILY hydroxyzine HCl 25 mg tablet 25 mg PO TID-QID PRN #90 tab PRN Reason: anxiety hydrocodone 5 mg-acetaminophen 325 mg tablet 1 tab PO Q6H PRN PRN Reason: pain omeprazole 40 mg capsule,delayed release 40 mg PO DAILY #30 cap Benzonatate [Tessalon Perle 100mg Cap] 100 mg PO TID Ipratropium/Albuterol Sulfate [Duoneb 3mL neb] 3 ml IH QID Nicotine [Nicotine Patch 21mg/24hrs] 21 mg TRANSDERMA DAILY 30 Days #30 patch.td24 Promethazine HCl [Phenergan 12.5mg tablet] 12.5 mg PO DAILY PRN 15 Days #15 tab PRN Reason: nausea and vomiting Tizanidine HCl [Zanaflex] 4 mg PO BID PRN #60 tab PRN Reason: muscle spasticity Discontinued Ergocalciferol (Vitamin D2) [Vitamin D2] 50,000 unit PO WEEKLY
== END 2018-04-22 10:55 | disposition home or self-care (01) ==
LOC: ER 15:04 → 2ND 16:55
PROVIDERS: ADMIT Emergency Medicine; ATTEND Emergency Medicine
CPT/HCPCS: 36415; 71010; 71045; 80048; 80053; 80202; 81001; 82550; 82553; 82803; 82962; 83605; 83880; 84484; 85007; 85025; 87040; 87070; 87205; 87275; 87276; 93005; 94640; 94761; 96365; 96375; 97161; 99283; J1956; J2405; J2543; J3370

== ENCOUNTER → 2018-09-06 12:16 | Outpatient (CLI) | payer MEDICARE, OTHER, SELFPAY ==
--- NOTE | 2018-09-06 12:47 | XR_ITS ---
XR elbow RT min 3V HISTORY: Posttraumatic pain ITS.REASON: Right elbow ORDERING PHYSICIAN: Kuldeep Arroyo APRN PATIENT AGE: 68 years COMPARISON: None FINDINGS: BONY STRUCTURES: No fracture or dislocation. No lytic or blastic change. Normal mineralization. SOFT TISSUES: Unremarkable. No radio opaque foreign bodies. No displaced fat pad. JOINT SPACE: Well-preserved. No significant arthritic changes evident. IMPRESSION: Negative elbow.
--- NOTE | 2018-09-06 12:47 | XR_ITS ---
XR humerus RT CLINICAL INDICATION: ITS.REASON: Pain, fall ORDERING PHYSICIAN: Kuldeep Arroyo APRN PATIENT AGE: 68 years Comparison: None FINDINGS: No bony or joint abnormality IMPRESSION: Negative right humerus
[2018-09-06 13:03] LABS: Basophils % 0.4 % (0.1-2.0); Eosinophils # 0.3 K/mm3 (0.0-0.4); Eosinophils % 2.6 % (0.1-12.0); Hematocrit 38.4 % (37.0-47.0); Hemoglobin 12.1 g/dL (12.2-16.2); Lymphocytes # 2.4 K/mm3 (0.7-4.5); Lymphocytes % 24.4 % (10-50); Mean Corpuscular HGB Conc 31.6 g/dL (31.8-35.4); Mean Corpuscular Hemoglobin 23.4 pg (27.0-31.2); Mean Platelet Volume 7.9 fl (7.4-10.4); Monocytes # 0.6 K/mm3 (0.1-1.0); Monocytes % 5.6 % (1.7-9.3); Neutrophils # 6.6 K/mm3 (1.8-7.8); Neutrophils % 66.9 % (37.0-80.0); Platelet Count 334 K/mm3 (142-424); Red Blood Count 5.19 M/mm3 (4.20-5.40); White Blood Count 9.8 K/mm3 (4.8-10.8)
[2018-09-06 14:34] LABS: Hemoglobin A1C 6.5 % (0.0-7.0)
[2018-09-06 15:09] LABS: Alanine Aminotransferase 18 U/L (12-78); Albumin Level 2.9 gm/dL (3.4-5.0); Albumin/Globulin Ratio 0.8 (1.1-1.8); Alkaline Phosphatase 141 U/L (46-116); Anion Gap 12.8 mEq/L (5-15); Aspartate Amino Transferase 12 U/L (15-37); Bilirubin,Total 0.3 mg/dL (0.2-1.0); Blood Urea Nitrogen 11 mg/dL (7-18); Calcium 8.9 mg/dL (8.5-10.1); Carbon Dioxide 27 mmol/L (21.0-32.0); Chloride 100 mmol/L (98-107); Chol/HDL Ratio 5.6 (1-3.5); Cholesterol 273 mg/dL (140-200); Estimated Glomerular Filt Rate 72 ml/min (>60); Free T4 (Free Thyroxine) 1.18 ng/dl (0.76-1.46); GFR (African American) 87 ML/MIN (>60); Globulin 3.8 gm/dl (1.3-3.2); Glucose 93 mg/dL (74-106); HDL Cholesterol 49 mg/dL (29-89); LDL Cholesterol 198 mg/dL (0-130); Potassium 3.8 mmoL/L (3.5-5.1); Sodium 136 mmol/L (136-145); Thyroid Stimulating Hormone 2.81 uIU/ml (0.358-3.740); Total Protein,Serum 6.7 gm/dL (6.4-8.2); Triglycerides 129 mg/dL (30-200); VLDL Cholesterol 26 mg/dL (0-40)
[2018-09-07 13:56] LABS: Thyroid Peroxidase Antibodies 26 IU/mL (0-34)
[2018-09-07 13:57] LABS: Microalbumin, Urine 8.1 ug/mL (Not Estab.); Vitamin D 25 Hydroxy 22.2 ng/mL (30.0-100.0)
== END ==
PROVIDERS: PCP Nurse Practitioner Family; Visit Provider Nurse Practitioner Family
DX: E11.51 Type 2 diabetes mellitus with diabetic peripheral angiopathy without gangrene (principal); E78.5 Hyperlipidemia, unspecified; I10 Essential (primary) hypertension; I70.209 Unspecified atherosclerosis of native arteries of extremities, unspecified extremity; R68.89 Other general symptoms and signs; R53.83 Other fatigue; D72.829 Elevated white blood cell count, unspecified; M79.601 Pain in right arm; M25.521 Pain in right elbow; W10.8XXA Fall (on) (from) other stairs and steps, initial encounter; Z79.4 Long term (current) use of insulin; Z79.84 Long term (current) use of oral hypoglycemic drugs; E55.9 Vitamin D deficiency, unspecified
CPT/HCPCS: 36415; 73060; 73080; 80053; 80061; 82043; 82652; 83036; 84439; 84443; 85025; 86376

== ENCOUNTER → 2018-09-15 10:21 | Outpatient (CLI) | payer MEDICARE, OTHER, SELFPAY ==
[2018-09-15 11:30] VITALS: PULSE 89; PULSE 92
== END ==
PROVIDERS: PCP Nurse Practitioner Family; Visit Provider Nurse Practitioner Family
DX: J44.9 Chronic obstructive pulmonary disease, unspecified (principal)
CPT/HCPCS: 94060

== ENCOUNTER 2020-07-07 17:23 | Observation (INO) | payer MEDICARE, OTHER, SELFPAY ==
[2020-07-07 17:23] VITALS: BP 160/83; PULSE 65; RESP 14; TEMP 36.8; O2SAT 93; BMI 26.4
--- NOTE | 2020-07-07 17:26 | HMH.EDGENADL ---
ED Disposition Clinical Impression: Chest pain Qualifiers: Chest pain type: unspecified Qualified Code(s): R07.9 - Chest pain, unspecified Disposition: Admitted as Observation Condition on Discharge: Good Referrals: Provider,Referral, [Referring] - - Critical Care Critical Care Time: No Attestation: On , the high probability of a clinically significant, sudden or life threatening deterioration of the following system(s) required my full and direct attention, intervention and personal management. The time I documented below is in addition to time spent performing reported procedures but includes the following listed in this critical care notation. Medical Decision Making - Medical Records Medical records reviewed: Yes: I reviewed the patient's medical records. - Lazaro Inquiry Pt receiving controlled substance: No Vital Signs: 07/07/20 17:23 07/07/20 18:37 07/07/20 20:00 Temperature 98.3 F Temperature Source Oral Pulse Rate [Left Radial] 65 60 60 Respiratory Rate 14 Blood Pressure [Right Arm] 160/83 H 185/64 H 167/79 H Blood Pressure Mean [Right Arm] 108 104 108 Blood Pressure Source [Right Arm] Automatic Cuff Automatic Cuff Blood Pressure Position [Right Arm] Sitting Sitting 02 Sat by Pulse Oximetry 93 L 95 93 L Oxygen Delivery Method Room Air Room Air - Lab Data Lab Results 07/07/20 17:21: WBC 11.3 H, RBC 4.84, Hgb 11.7 L, Hct 37.7, MCV 77.9 L, MCH 24.1 L, MCHC 31.0 L, RDW 19.5 H, Plt Count 323, MPV 7.8, Neut % (Auto) 66.3, Lymph % (Auto) 25.0, [place] % (Auto) 5.1, Eos % (Auto) 3.1, Baso % (Auto) 0.5, Neut # (Auto) 7.5, Lymph # (Auto) 2.8, [place] # (Auto) 0.6, Eos # (Auto) 0.4, Baso # (Auto) 0.1 07/07/20 17:21: Sodium 133 L, Potassium 4.4, Chloride 102, Carbon Dioxide 25, Anion Gap 10.4, BUN 20 H, Creatinine 1.10 H, Estimated Creat Clear 47, Estimated GFR 49 L, Est GFR ( Amer) 60, Glucose 118 H, Calcium 9.3, Total Bilirubin 0.3, AST 27, ALT 12, Alkaline Phosphatase 111, Total Protein 6.7, Albumin 3.7, Globulin 3.0, Albumin/Globulin Ratio 1.2 07/07/20 17:22: Total Creatine Kinase 35, Troponin I 0.02 07/07/20 18:11: Chlamy pneumoniae PCR Not detected, Adenovirus (PCR) Not detected, B. pertussis DNA (PCR) Not detected, Coronavirus OC43 (PCR) Not detected, Coronavirus HKU1 (PCR) Not detected, Coronavirus 229E (PCR) Not detected, SARS-CoV-2 (PCR) Not detected, Coronavirus NL63 (PCR) Not detected, Human Metapneumovir PCR Not detected, Influenza A (H1) PCR Not detected, Influ A (H1N1/09) PCR Not detected, Influenza A (H3) PCR Not detected, Influenza Type A (PCR) Not detected, Influenza Type B (PCR) Not detected, M. pneumoniae (PCR) Not detected, Parainfluenza 1 (PCR) Not detected, Parainfluenza 2 (PCR) Not detected, Parainfluenza 3 (PCR) Not detected, Parainfluenza 4 (PCR) Not detected, RSV (PCR) Not detected, Entero/Rhino (PCR) Not detected 07/07/20 18:15: Urine Color Yellow, Urine Appearance Clear, Urine pH 5.5, Ur Specific [place] 1.010, Urine Protein Negative, Urine Glucose (UA) Negative, Urine Ketones Negative, Urine Blood Negative, Urine Nitrate Negative, Urine Bilirubin Negative, Urine Urobilinogen 0.2, Ur Leukocyte Esterase Negative, Ur Squamous Epith Cells 3-5, Amorphous Sediment Trace Result diagrams: 07/07/20 17:21 07/07/20 17:21 Orders (Tests/Meds): ORDERS Category Date Time Status CT head/brain wo con Stat Cat Scan 07/07/20 17:35 Taken XR chest portable Stat Exams 07/07/20 17:46 Taken Troponin I Q3H Lab 07/07/20 21:00 Ordered Troponin I Q3H Lab 07/08/20 00:00 Ordered Medical Decision Narrative: Patient is a 70-year-old female presenting with chest pain and altered mental status. Patient had a 10-minute episode of altered mental status where she states she felt like she had an out of body experience. CT head scan will be obtained to ensure no acute ICH. Also concern for atypical ACS as patient does have arm heaviness with significant vascular history. EKG demonstrates n
--- NOTE | 2020-07-07 17:35 | ECG_ITS ---
APPROVED REPORT Exam: Resting ECG HR:60 bpm ECG Measurements Heart Rate 60 AXES QRSd 70 QRS -15 QT 408 T 227 QTc [address] & T wave abnormality, consider anterolateral ischemia Abnormal ECG Electronically signed by : Moncho Genao, 07/08/2020 06:59:11
--- NOTE | 2020-07-07 17:35 | CT_ITS ---
PROCEDURE: CT HEAD/BRAIN WO CON CLINICAL INDICATION: weakness Difficulty speaking COMPARISON: CT HEADWO CT head/brain wo con from 07/26/2017 TECHNIQUE: Axial images obtained. All CT scans at the facility use one or more dose reduction, viz: automated exposure control, ma/kV adjustment per patient size (including targeted exams where dose is matched to indication, i.e. head), or iterative reconstruction technique. FINDINGS: No midline shift, mass effect, intracranial hemorrhage, hydrocephalus, or extra-axial fluid collection is evident. There is generalized atrophy with hypoattenuation of the periventricular white matter consistent with microangiopathic changes. Encephalomalacia changes are present at the left parietal occipital junction. This has developed since previous exam. White matter changes are somewhat more extensive than when compared to the previous study. The calvarium has an unremarkable appearance. No mastoid effusion. No sinus air-fluid level. IMPRESSION: 1. No acute intracranial findings. 2. Progression small vessel ischemic changes with encephalomalacia in the left parietal occipital junction Dictated by: Alex Deleon MD 07/08/2020 06:51 Alex Deleon MD in [facility] 07/08/2020 06:51
[2020-07-07 17:41] LABS: Basophils # 0.1 K/mm3 (0-0.2); Basophils % 0.5 % (0.1-2.0); Eosinophils # 0.4 K/mm3 (0.0-0.4); Eosinophils % 3.1 % (0.1-12.0); Hematocrit 37.7 % (37.0-47.0); Hemoglobin 11.7 g/dL (12.2-16.2); Lymphocytes # 2.8 K/mm3 (0.7-4.5); Mean Corpuscular Hemoglobin 24.1 pg (27.0-31.2); Mean Corpuscular Volume 77.9 fl (81-99); Mean Platelet Volume 7.8 fl (7.4-10.4); Monocytes # 0.6 K/mm3 (0.1-1.0); Monocytes % 5.1 % (1.7-9.3); Neutrophils # 7.5 K/mm3 (1.8-7.8); Neutrophils % 66.3 % (37.0-80.0); Platelet Count 323 K/mm3 (142-424); Red Blood Count 4.84 M/mm3 (4.20-5.40); Red Cell Distribution Width 19.5 % (11.5-17.5); White Blood Count 11.3 K/mm3 (4.8-10.8)
[2020-07-07 17:45] LABS: Alanine Aminotransferase 12 U/L (12-78); Albumin Level 3.7 g/dl (3.5-5.0); Albumin/Globulin Ratio 1.2 (1.1-1.8); Alkaline Phosphatase 111 U/L (38-126); Anion Gap 10.4 mEq/L (5-15); Aspartate Amino Transferase 27 U/L (14-36); Bilirubin,Total 0.3 mg/dl (0.2-1.3); Blood Urea Nitrogen 20 mg/dl (7-17); Calcium 9.3 mg/dl (8.4-10.2); Carbon Dioxide 25 mmol/L (22.0-30.0); Chloride 102 mmol/L (98-107); Creatinine Clearance Estimated 47 mL/min (50-200); Estimated Glomerular Filt Rate 49 ml/min (>60); GFR (African American) 60 ML/MIN (>60); Glucose 118 mg/dl (74-100); Potassium 4.4 mmoL/L (3.5-5.1); Sodium 133 mmol/L (136-145); Total Protein,Serum 6.7 g/dl (6.3-8.2)
--- NOTE | 2020-07-07 17:46 | XR_ITS ---
PROCEDURE: XR CHEST PORTABLE CLINICAL HISTORY: weakness Dizziness and weakness, smoker COMPARISON: CT CHWO CT CHEST W/O CONTRAST from 02/04/2015 CR CXR1VP XR chest portable from 04/09/2018 CR CXR2V XR chest 2V from 04/11/2018 CR CXR1VP XR chest portable from 04/18/2018 FINDINGS: Bipolar pacemaker is present from left subclavian approach. No lobar consolidation or collapse. Faint opacity is present in the right apex overlying the 1st rib possibly due to summation artifact or pulmonary nodule. There is mild chronic prominence of the interstitium. No acute bony abnormalities. IMPRESSION: No acute finding. Possible right apical nodule. Follow-up upright PA and lateral chest or chest CT may provide further evaluation. The Dictated by: Alex Deleon MD 07/08/2020 05:22 Alex Deleon MD in [facility] 07/08/2020 05:22
--- NOTE | 2020-07-07 17:48 | PC.NURSE ---
Pt to rad.
[2020-07-07 17:56] LABS: Creatine Kinase 35 U/L (30-135)
[2020-07-07 18:09] LABS: Troponin I 0.02 ng/ml (0.00-0.034)
[2020-07-07 18:22] LABS: Microscopic, Urine URINE MICROSCOPIC (MICROSCOPIC)
[2020-07-07 18:32] LABS: Adenovirus,PCR Not Detected (NotDetected); Bordetella Pertussis Not Detected (NotDetected); Chlamydophila Pneumoniae, PCR Not Detected (NotDetected); Coronavirus 19, PCR Not Detected (NotDetected); Coronavirus 229E Not Detected (NotDetected); Coronavirus NL63 Not Detected (NotDetected); Coronavirus OC43 Not Detected (NotDetected); Coronovirus HKU1,PCR Not Detected (NotDetected); Human Metapneumovirus Not Detected (NotDetected); Influenza A, PCR Not Detected (NotDetected); Influenza AH1, 2009 Not Detected (NotDetected); Influenza AH1, PCR Not Detected (NotDetected); Influenza AH3,PCR Not Detected (NotDetected); Influenza B, PCR Not Detected (NotDetected); Mycoplasma Pneumoniae, PCR Not Detected (NotDetected); Parainfluenza 1, PCR Not Detected (NotDetected); Parainfluenza 2, PCR Not Detected (NotDetected); Parainfluenza 3, PCR Not Detected (NotDetected); Parainfluenza 4, PCR Not Detected (NotDetected); Respiratory Syncytial Virus Not Detected (NotDetected); Rhinovirus/Enterovirus Not Detected (NotDetected)
[2020-07-07 18:37] VITALS: BP 185/64; PULSE 60; O2SAT 95
[2020-07-07 18:43] LABS: Appearance,Urine CLEAR (Clear); Bilirubin,Urine Negative (Negative); Blood, Urine Negative (Negative); Color,Urine YELLOW (Yellow); Glucose,Urine (UA) Negative (Negative); Ketones,Urine Negative (Negative); Leukocyte Esterase,Urine Negative (Negative); Nitrate,Urine Negative (Negative); PH,Urine 5.5 (5.0-8.5); Protein,Urine Negative (Negative); Urobilinogen,Urine 0.2 EU/dl (0.2)
[2020-07-07 18:48] LABS: Amorphous Sediment,Urine Trace /lpf
--- NOTE | 2020-07-07 19:29 | PC.NURSE ---
Left Pedal pulse very strong on Doppler right pedal pulse was not found, but a strong post tibial pulse present. Right foot deformity noted from prior surgery. Pt has lower ext cap refill< 3 sec with Normal Babinski sign. Pt states she cant feel her feet but is unable to hold feet still while performing Babinski test.
[2020-07-07 20:00] VITALS: BP 167/79; PULSE 60; O2SAT 93
[2020-07-07 20:54] VITALS: BP 154/68; PULSE 60; RESP 18; TEMP 36.8; O2SAT 94
[2020-07-07 20:55] VITALS: BP 153/73; PULSE 62; RESP 18; TEMP 36.7; O2SAT 97; BMI 25.4
--- NOTE | 2020-07-07 20:55 | PC.NURSE ---
patient up to floor via wheelchair.
[2020-07-07 21:44] LABS: Troponin I 0.02 ng/ml (0.00-0.034)
[2020-07-07 22:13] LABS: POC Glucose,Bedside 178 (70-110)
[2020-07-08] VITALS (18 sets, daily range): BP systolic 118–160; BP diastolic 43–78; PULSE 60–79; RESP 16–22; TEMP 36.4–36.8; O2SAT 90–97; BMI 25.4; BMI 25.5
--- NOTE | 2020-07-08 | IR_ITS ---
APPROVED REPORT Patient Location: Inpatient Dial Polisher: RIMA Serrato RT (R) PROCEDURES Left heart catheterization Left ventriculogram Selective coronary angiogram INDICATION Unstable angina, Known coronary artery disease Informed consent was obtained prior to the procedure. COMPLICATIONS None Estimated Blood Loss: Less than 10 mls TECHNIQUE One percent lidocaine used to anesthetize the right anterior aspect of the wrist. The right radial artery was accessed via the Seldinger technique. A 6 [place] sheath was placed in the right radial artery. 2.5 mg of verapamil, 800 mcg of nitroglycerin, 1mg Lidocaine and 5000 U Heparin were given through the arterial sheath. The trap catheter was also used to perform left heart catheterization, left ventriculogram and selective coronary angiogram. At the end of the procedure the sheath was removed good hemostasis was achieved using Traclet band, patient was transferred to the postop holding area in stable condition. ANGIOGRAPHIC RESULTS The left main artery Normal The left anterior descending artery Has an ostial proximal 10 to 20% stenosis with additional proximal calcification but no significant stenosis beyond 10% The circumflex artery Nondominant yet still large with mild 10% luminal irregularities The right coronary artery Dominant with mild 10% luminal irregularities The GARCIA ventriculogram reveals Normal 65% The left ventricular end-diastolic pressure 15 mmHg IMPRESSION Nonflow limiting coronary disease Normal ejection fraction Mildly elevated LVEDP PLAN 1. Medical management Electronically signed by : Luis Felipe Rogers, 07/08/2020 14:29:51
[2020-07-08 00:22] LABS: Troponin I 0.02 ng/ml (0.00-0.034)
--- NOTE | 2020-07-08 04:20 | PC.NURSE ---
Pt A&O x4 and has slept on and off through the night. Pt c/o mild back pain but was able to sleep. Lungs sounds are diminished overall with rhonci noted to left lower bases. On room air, sats in the 90s. Pt able to ambulate with a walker in room. Bowel sounds x4, abd soft and nontender. Stroke scale was negative, no c/o chest pain. pedal pulses were palpable, left side was notably stronger than right. Call light in reach, no concerns at this time.
--- NOTE | 2020-07-08 07:22 | CA_ITS ---
APPROVED REPORT EXAM: Comprehensive 2D, Doppler, and color-flow Echocardiogram Safety Teacher: Dhara Moore RT(R) Ht: 4 ft 11 in Wt: 129lbs BSA: 1.53 BP: 167/74 mmHg Indications: CP, COPD, Murmur, ex smoker, palpitations, HTN, hyperlipidemia, asthma, CAD, GERD, pacemaker 2D Dimensions LVOT 1.93 cm (M/F) 1.5-2.5 LVEF (Keller's) 71.80 % F: 54 - 74 LV Volume 74.70 mL F: 46 - 106 LV Volume Index 48.82 mL/m2 F: 29 - 61 LA Volume 26.10 mL LA Volume Index 17.05 mL/m2 (M/F) 16-34 M-Mode Dimensions RVDd 1.96 cm (0.9-2.6) LA Diam 4.48 cm (1.9-4.0) LVDd 3.99 cm (3.5-5.7) Ao Diam 2.73 cm (2.0-3.7) LVDs 3.06 cm (3.5-5.7) IVSd 0.82 cm (0.6-1.1) PWd 0.75 cm (0.6-1.1) EF (Teich) 47.30% FS 23.30% EDV (Teich) 69.60 mL ESV (Teich) 36.70 mL LV Diastology E Decel Time 233.00 (160-240 msec) E/A Ratio 0.9 MED E' 8.40 (< 7 cm/sec) E'/MED E' Ratio 13.65 (>14) LAT E' 8.90 (<10 cm/sec) E/LAT E' Ratio 12.89 (>14) Aortic Valve AO VTI 59.61 (18-25 cm) Mitral Valve MV E Max Callum. 115.00 (40-130 cm/s) MV A Velocity 129.00 (40-130 cm/s) E/A Ratio 0.89 MV Decel. Time 233.00 (160-240 ms) MV PHT 68.00 ms Tricuspid Valve TR P. Velocity 251.00 cm/s RAP Estimate 10.00 mmHg RVSP 35.20 mmHg Left Ventricle Left atrium is mildly enlarged, left ventricle is normal size, mild concentric left ventricular hypertrophy, visually estimated ejection fraction 55% with no regional wall motion abnormality, grade 1 diastolic dysfunction seen without tissue Doppler evidence of raise left atrial pressure. Right Ventricle Right atrium and right ventricle are normal size and contractility. Aortic Valve Aortic valve is minimally thickened and fibrosed, there is no aortic stenosis or aortic insufficiency. Mitral Valve Mitral valve is grossly normal, there is trace mitral regurgitation. Tricuspid Valve Tricuspid valve grossly normal, there is trace tricuspid regurgitation. Pulmonic Valve Pulmonic valve is poorly visualized. Great Vessels Aortic root is normal size. Pericardium No significant pericardial effusion noted. Conclusion 1. Mildly enlarged left atrium, normal left ventricular size, mild concentric left ventricular hypertrophy, visually estimated ejection fraction 55% with no regional wall motion abnormality, grade 1 diastolic dysfunction seen without tissue Doppler evidence of raise left atrial pressure. 2. Trace mitral and tricuspid regurgitation. 3. No significant pericardial effusion noted. Electronically signed by : Alexi Doll, 07/08/2020 11:03:34
--- NOTE | 2020-07-08 07:29 | HMH.PHAVTE ---
[facility] Pharmacy VTE Monitoring - Patient Demographics Admission date: 07/08/20 Report Date: 07/08/20 Time: 07:29 Allergies/Adverse Reactions: Patient Allergies codeine [CODEINE] Allergy (Unknown, Verified 07/07/20 21:26) NA-NAUSEA/VOMITING diphenhydramine [DIPHENHYDRAMINE] Allergy (Unknown, Verified 07/07/20 21:26) I-RASH Iodinated Contrast Media [IODINATED CONTRAST MEDIA - ORAL AND] Allergy (Unknown, Verified 07/07/20 21:26) Difficulty Breathing Penicillins [PENICILLINS] Allergy (Unknown, Verified 07/07/20 21:26) RASH, ANCEF OKAY PER DR. POWERS Sulfa (Sulfonamide Antibiotics) [SULFA (SULFONAMIDE ANTIBIOTICS)] Allergy (Unknown, Verified 07/07/20 21:26) NA-NAUSEA/VOMITING aspirin Allergy (Verified 07/07/20 21:26) Rash fluconazole [From Diflucan] Allergy (Verified 07/07/20 21:26) Rash oxycodone [From Percocet] Allergy (Verified 07/07/20 21:26) Rash zolmitriptan [From Zomig] Allergy (Verified 07/07/20 21:26) Rash Height: 1.52 m Weight: 58.684 kg Patient Problems: Current Active Problems Chest pain (Acute) - VTE Risk Labs: VTE Related Lab Results Hgb 11.7 g/dL (12.2-16.2) L 07/07/20 17:21 Hct 37.7 % (37.0-47.0) 07/07/20 17:21 Plt Count 323 K/mm3 (142-424) 07/07/20 17:21 BUN 20 mg/dl (7-17) H 07/07/20 17:21 Creatinine 1.10 mg/dl (0.52-1.04) H 07/07/20 17:21 Estimated Creat Clear 47 mL/min (50-200) 07/07/20 17:21 Was VTE Risk Assessment Performed: Yes VTE Score: 8 VTE Risk Level: Moderate Risk Clinical Trial Participant: No - Prophylaxis VTE Prophylaxis Ordered?: Yes Types of VTE Prophylaxis: TEDS Knee High
--- NOTE | 2020-07-08 08:35 | HMH.CNCARD ---
History of Present Illness Consult date: 07/08/20 Requesting physician: Emeka Dill Consult reason: chest pain Chief complaint: AMS, chest pain Additional Medical History:: 1. CAD A. C, 2014, moderate LAD disease, medical therapy 2. PAD A. right SFA stent occluded with collateral reconstruction in popliteal area. 3. COPD with continued tobacco use. A. Pulmonary fibrosis 4. [facility] Permanent pacemaker for symptomatic bradycardia, 2014 5. Hyperlipidemia 6. Diabetes Mellitus, Type 2 A. Treated since approximately 1997 7. HTN A. echo, 2014, mild to moderate MR B. Echo, 01/2017, 2D 1. Left atrium is normal size, left ventricle is normal size, there is no concentric left ventricular hypertrophy, there is preserved left ventricular systolic function, visually estimated ejection fraction of 55% with no obvious regional wall motion abnormality. 2. The right atrium and right ventricle are normal size and contractility, there is catheter noted in the right atrium which is likely a pacemaker lead. 3. The aortic valve is minimally thickened and fibrosed. 4. The mitral and tricuspid valve leaflets are grossly normal. 5. The pulmonic valve is poorly visualized. 6. No significant pericardial effusion noted. DOPPLER INTERROGATION: Doppler interrogation of the aortic mitral and tricuspid valvular presence of mild mitral and tricuspid regurgitation, tricuspid regurgitant jet velocity insufficient for calculation of the right ventricular systolic pressure, diastolic parameters are within normal range. CONCLUSION: 1. Normal left ventricular size. Preserved left ventricular systolic function, visually estimated ejection fraction 55% with no obvious regional wall motion abnormality, diastolic parameters are within normal range. 2. Mild mitral and tricuspid regurgitation. 3. No significant pericardial effusion noted 8. Anxiety/Depression 9. S/p left hip replacement, 10/2017, Dr. Green in [place]. 10. mini strokes per patient A. Head CT, 07/07/2020, 1. No acute intracranial findings. 2. Progression small vessel ischemic changes with encephalomalacia in the left parietal occipital junction History of present illness: Patient is a 70-year-old female presenting with chest pain and altered mental status. Patient had a 10-minute episode of altered mental status where she states she felt like she had an out of body experience. CT head scan will be obtained to ensure no acute ICH. Also concern for atypical ACS as patient does have arm heaviness with significant vascular history. EKG demonstrates no acute ischemia. She has some ischemic findings but these are old when compared to prior EKGs. Cardiac enzyme testing will be obtained as well as basic lab work. Troponin within normal limits. Basic lab work relatively unremarkable. CT head imaging demonstrates no acute ICH/other abnormalities. At this time, patient persistently complains of weakness. She does have some generalized weakness on exam. I am concerned as she is an elderly female with diabetes that this could be a presentation of atypical ACS. I do believe patient admitted with further provocative testing potentially in the morning. She agrees with the above listed plan. I discussed this with on-call provider, Dr. Dill. After careful discussion we both agree the patient will be admitted for further testing/treatment. The above per ER MD, Dr. Briggs Patient relates recurrent episodes of mini strokes for which she has been evaluated in [place] reportedly without etiology. Over the weekend patient was lying on the couch when her spouse was trying to awaken her. She could hear and understand what was going on but was unable to communicate or move. She does relate some intermittent chest discomfort/pain/pressure at times. She does continue to smoke and is a long-term diabetic. She is known to have moderate coronary artery disease of her [place]
--- NOTE | 2020-07-08 09:13 | CA_ITS ---
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 Laterality: Bilateral Indications: ex smoker, HTN, hyperlipidemia, TIA symptoms, CAD, asthma, pacemaker Doppler Spectral Velocity Analysis dICA (R) 90.50/21.20 cm/s ECA (L) 97.30/13.50 cm/s Nicole (R) 104.00/30.80 cm/s pICA (R) 98.20/23.10 cm/s dICA (L) 159.90/32.90 cm/s Nicole (L) 85.70/16.40 cm/s pICA (L) 98.20/10.60 cm/s dCCA (R) 72.00/13.70 cm/s pCCA (R) 68.50/17.10 cm/s dCCA (L) 79.00/18.30 cm/s Vert (R) 78.00/9.60 cm/s pCCA (L) 87.60/15.40 cm/s ICA/CCA 1.45 Vert (L) 44.30/13.50 cm/s ICA/CCA 2.02 Findings Duplex evaluation demonstrates stenosis of the left proximal internal carotid artery in the range of 50-69% with PSV <140 cm/sec, EDV <100 cm/sec, and IC/CC Ratio <4.0. Duplex evaluation demonstrates stenosis of the right proximal internal carotid artery <20% with PSV <140 cm/sec, EDV <100 cm/sec, and IC/CC Ratio <4.0. Conclusion Duplex evaluation demonstrates stenosis of the left proximal internal carotid artery in the range of 50-69% with PSV <140 cm/sec, EDV <100 cm/sec, and IC/CC Ratio <4.0. Duplex evaluation demonstrates stenosis of the right proximal internal carotid artery <20% with PSV <140 cm/sec, EDV <100 cm/sec, and IC/CC Ratio <4.0. Electronically signed by : Alex Deleon MD 07/08/2020 14:54:42
--- NOTE | 2020-07-08 10:13 | HMH.PHAINT ---
home medication list completed using list from home mail order pharmacy and pt interview.
[2020-07-08 11:54] LABS: POC Glucose,Bedside 98 (70-110)
[2020-07-08 15:28] LABS: POC Glucose,Bedside 113 (70-110)
--- NOTE | 2020-07-08 16:41 | HMH.HPDC ---
General - General Admission date:: 07/07/20 Discharge date: 07/08/20 *Admission Date: 07/08/20 *Chief complaint: chest pain *History of present illness: 70-year-old female presenting to ed with chest pain,weakness and altered mental status. Patient states she had a 10-minute episode of altered mental status where she states she felt like she had an out of body experience. CT head scan will be obtained to ensure no acute ICH, results nothing acute. Troponin within normal limits. Basic lab work relatively unremarkable. Pt states hx of mini strokes that she has been seen at [facility]. Over the weekend patient was lying on the couch when her spouse was trying to awaken her. Pt states she could hear and understand what was going on but was unable to communicate or move. She states during these episodes she has some intermittent chest discomfort/pain/pressure at times. Pt smokes daily. History of moderate coronary artery disease of her LAD in 2015. She has not been seen in our office since 2018. Pt was admitted for further work up and cardiology consult. [facility] History I have reviewed the patient's past medical history: Yes Medical History: Reports:: Anxiety, Arrhythmia, Asthma, Congestive Heart Failure, Chronic Obstructive Pulmonary Disease (COPD), Coronary Artery Disease, Depression, Diabetes Mellitus Type 2, Gastroesophageal Reflux Disease(GERD), Heart Murmur, Hyperlipidemia, Hypertension, Internal Pacemaker, Osteoporosis, Palpitations, Peripheral Artery Disease, Peripheral Vascular Disease Denies:: Cancer, Diabetes Mellitus Type 1, MRSA *Have you ever received a pneumonia vaccine?: Yes *Have you received a flu vaccine this season?: No Other Medical History: Reports: Anemia, Arthritis, Cataracts, Hoarseness, Hormone Therapy, Osteoporosis, Sinus Problems, Thyroid Disease Laterality Cases: Left: Total Hip Replacement, Right: Carpal Tunnel Release, Bilateral: Other Other Surgeries: Yes: Cardiac Catheterization, Cardiac Surgery, Cholecystectomy, Colonoscopy, Hysterectomy-Total, Hysterectomy-Partial, Pacemaker, Tubal Ligation, Other Amputation: No Fractures: No - *Social History Smoking Status: Current every day smoker Tobacco Type: cigarettes # Packs/Day (cigarettes): 1 #Yrs smoked (if former smoker): 50 Alcohol Intake: never Alcohol Intake Frequency:: other Substance Use Type: denies use *Occupational Status:: disabled Housing: house Household Members: spouse, family *Travel in the last 8 weeks: None - Psychiatric History Pschychiatric History:: Reports:: Anxiety, Depression Family Hx:: Asthma, Cancer, Coronary Artery Disease, Diabetes, Heart Attack, Hyperlipidemia, Hypertension, Stroke, Tuberculosis Review of Systems - Constitutional Denies body ache(s) - Eyes Denies blurry vision - ENT Denies change in voice - *Cardiovascular Reports chest pain, Reports chest pain at rest, Reports chest pain with activity, Denies leg pain with activity - *Respiratory Denies cough - *Gastrointestinal Denies change in bowel habits - *Genitourinary Denies difficulty urinating - *Musculoskeletal Reports muscle weakness, Denies decreased muscle mass, Denies radiating pain into limb - Integumentary/Breasts Denies sensitivity to light - *Neurologic Reports localized weakness, Reports headache(s) - Psychiatric Denies anxiety - Endocrine Denies heat intolerance - Hematologic/Lymphatic Denies other - Allergic/Immunologic Denies lip swelling Exam Vital signs and Labs for Last 24 Hours: Temp Pulse Resp BP Pulse Ox 97.8 F 72 22 151/75 H 90 L 07/08/20 13:50 07/08/20 14:05 07/08/20 14:05 07/08/20 14:05 07/08/20 14:05 Laboratory Results - last 24 hr 07/07/20 17:21: WBC 11.3 H, RBC 4.84, Hgb 11.7 L, Hct 37.7, MCV 77.9 L, MCH 24.1 L, MCHC 31.0 L, RDW 19.5 H, Plt Count 323, MPV 7.8, Neut % (Auto) 66.3, Lymph % (Auto) 25.0, Starr % (Auto) 5.1, Eos % (Auto) 3.1, Baso % (Auto) 0.5, Neut # (Auto) 7.5, Lymph # (Auto)
--- NOTE | 2020-07-08 18:55 | PC.NURSE ---
THIS RN PROVIDED D/C INSTRUCTIONS FOR RIGHT WRIST CATH SITE. PATIENT VERBALIZED AN UNDERSTANDING. NO CONCERNS AT D/C.
== END 2020-07-08 19:00 | disposition home or self-care (01) ==
LOC: ER 18:27 → 2ND 20:24
PROVIDERS: Internal Medicine; Admitting Provider Emergency Medicine; Emergency Provider Emergency Medicine; PCP Internal Medicine Addiction Medicine; Visit Provider Emergency Medicine
DX: I25.110 Atherosclerotic heart disease of native coronary artery with unstable angina pectoris (principal); I11.0 Hypertensive heart disease with heart failure; I50.9 Heart failure, unspecified; Z95.0 Presence of cardiac pacemaker; Z79.890 Hormone replacement therapy; Z79.899 Other long term (current) drug therapy; Z79.4 Long term (current) use of insulin; Z79.51 Long term (current) use of inhaled steroids; Z72.0 Tobacco use; Z88.0 Allergy status to penicillin; Z88.2 Allergy status to sulfonamides; Z88.8 Allergy status to other drugs, medicaments and biological substances; I34.0 Nonrheumatic mitral (valve) insufficiency; E11.9 Type 2 diabetes mellitus without complications; R06.9 Unspecified abnormalities of breathing; Z86.73 Personal history of transient ischemic attack (TIA), and cerebral infarction without residual deficits
CPT/HCPCS: 36415; 70450; 71045; 80053; 81001; 82550; 82962; 84484; 85025; 87581; 87633; 87798; 93005; 93306; 93458; 93880; 99152; 99284; C1725; C1769; G0378; J1644; Q9967

== ENCOUNTER → 2021-12-16 17:39 | Outpatient (CLI) | payer MEDICARE, OTHER, SELFPAY ==
[2021-12-16 15:27] LABS: Basophils # 0.1 K/mm3 (0-0.2); Basophils % 0.8 % (0.1-2.0); Eosinophils # 0.3 K/mm3 (0.0-0.4); Eosinophils % 1.8 % (0.1-12.0); Hematocrit 39.2 % (37.0-47.0); Hemoglobin 12.1 g/dL (12.2-16.2); Lymphocytes # 1.7 K/mm3 (0.7-4.5); Lymphocytes % 11.6 % (10-50); Mean Corpuscular HGB Conc 30.8 g/dL (31.8-35.4); Mean Corpuscular Hemoglobin 29.4 pg (27.0-31.2); Mean Corpuscular Volume 95.3 fl (81-99); Mean Platelet Volume 9.2 fl (7.4-10.4); Monocytes # 0.8 K/mm3 (0.1-1.0); Monocytes % 5.2 % (1.7-9.3); Neutrophils # 11.6 K/mm3 (1.8-7.8); Neutrophils % 80.6 % (37.0-80.0); Platelet Count 422 K/mm3 (142-424); Red Blood Count 4.12 M/mm3 (4.20-5.40); Red Cell Distribution Width 14.7 % (11.5-17.5); White Blood Count 14.4 K/mm3 (4.8-10.8)
[2021-12-16 15:35] LABS: Alanine Aminotransferase 8 U/L (12-78); Albumin Level 3.1 g/dl (3.5-5.0); Alkaline Phosphatase 250 U/L (38-126); Anion Gap 10.5 mEq/L (5-15); Aspartate Amino Transferase 23 U/L (14-36); Bilirubin,Total 0.2 mg/dl (0.2-1.3); Blood Urea Nitrogen 16 mg/dl (7-17); Calcium 8.9 mg/dl (8.4-10.2); Carbon Dioxide 27 mmol/L (22.0-30.0); Chloride 103 mmol/L (98-107); Chol/HDL Ratio 4.1 (1-3.5); Cholesterol 176 mg/dl (140-200); Estimated Glomerular Filt Rate 55 ml/min (>60); GFR (African American) 66 ML/MIN (>60); Glucose 91 mg/dl (74-100); HDL Cholesterol 43 mg/dl (40-60); Potassium 4.5 mmoL/L (3.5-5.1); Sodium 136 mmol/L (136-145); Total Protein,Serum 6.1 g/dl (6.3-8.2); Triglycerides 176 mg/dl (30-150); VLDL Cholesterol 35 mg/dL (0-40)
[2021-12-16 15:51] LABS: Free T4 (Free Thyroxine) 1.17 ng/dl (0.78-2.19); Hemoglobin A1C 5.6 % (4.0-6.0)
[2021-12-16 15:52] LABS: 25-OH Vitamin D, Total 44.5 ng/mL (30-100)
[2021-12-16 16:06] LABS: Thyroid Stimulating Hormone 2.63 uIU/mL (0.465-4.68)
[2021-12-18 09:14] LABS: Direct LDL Cholesterol 86 mg/dL (100-129)
== END ==
PROVIDERS: PCP Emergency Medicine; Visit Provider Emergency Medicine
DX: E13.9 Other specified diabetes mellitus without complications (principal); E55.9 Vitamin D deficiency, unspecified
CPT/HCPCS: 80053; 80061; 82306; 83036; 84439; 84443; 85025

== ENCOUNTER → 2022-01-06 08:54 | Outpatient (CLI) | payer MEDICARE, OTHER, SELFPAY ==
--- NOTE | 2022-01-06 09:13 | XR_ITS ---
FINAL REPORT TECHNIQUE: Bone densitometry calculations of the lumbar spine, left forearm and right hip were obtained. CLINICAL HISTORY: .post menopausal FINDINGS: DEXA BONE DENSITY AXIAL SKELETON Using L1-4, the bone mineral density of the spine is 0.791 g/cm2, corresponding to T-score of -2.3. These values may be somewhat elevated secondary to hypertrophic change. Using the right hip, the bone mineral density of the femoral neck is 0.545 g/cm2, corresponding to a T-score of -3.3. Using the left forearm, the bone mineral density of the distal 1/3 is 0.444 g/cm2, corresponding to a T-score of -4.2. NOTE: T-score: Standard deviation compared with peak bone mass of young adult mean. *Following the recommendations of the International Society of Bone Densitometry, classification of hip BMD is based on the lower of two T-scores; total hip or femoral neck. IMPRESSION: Osteoporosis: Lowest T-score is at or below -2.5. This patient's T-score meets the World Health Organization criteria for osteoporosis. Reviewed, Interpreted and Dictated by Cholo Khoury III, MD Transcribed by Corinna Reynoso Authenticated and [facility]
[2022-01-06 10:25] LABS: Phosphorous 3.7 mg/dl (2.5-4.5)
[2022-01-06 10:37] LABS: Intact Parathyroid Hormone 109.6 pg/mL (7.5-53.5)
== END ==
PROVIDERS: PCP Emergency Medicine; Visit Provider Emergency Medicine
DX: R74.8 Abnormal levels of other serum enzymes (principal); Z78.0 Asymptomatic menopausal state
CPT/HCPCS: 36415; 77080; 83970; 84100

== ENCOUNTER → 2022-01-14 13:33 | Outpatient (CLI) | payer MEDICARE, OTHER, SELFPAY ==
[2022-01-14 14:36] VITALS: BMI 29.4
== END ==
PROVIDERS: PCP Emergency Medicine; Visit Provider Emergency Medicine
DX: Z71.3 Dietary counseling and surveillance (principal); E11.9 Type 2 diabetes mellitus without complications
CPT/HCPCS: 97802

== ENCOUNTER → 2022-01-19 14:12 | Outpatient (CLI) | payer MEDICARE, OTHER, SELFPAY | PROVIDERS: PCP Emergency Medicine; Visit Provider Internal Medicine | DX: Z01.818 Encounter for other preprocedural examination (principal); Z20.822 Contact with and (suspected) exposure to COVID-19; Z13.810 Encounter for screening for upper gastrointestinal disorder | CPT/HCPCS: C9803; U0003; U0005 ==

== ENCOUNTER 2022-01-21 11:47 | Day surgery (SDC) | payer MEDICARE, OTHER, SELFPAY ==
[2022-01-20 13:13] VITALS: BMI 28.7
[2022-01-21] VITALS (7 sets, daily range): BP systolic 145–179; BP diastolic 59–83; PULSE 60–65; RESP 18–20; TEMP 36.5–36.6; O2SAT 92–100
[2022-01-21 12:12] LABS: POC Glucose,Bedside 105 (70-110)
--- NOTE | 2022-01-21 13:14 | HMH.SCOPE ---
Procedure: Date: 01/21/22 Patient Date of :: 1950 Procedure Performed:: EGD Indications:: Nausea and vomiting Performing Provider:: Paulino Haddad MD Referring Provider:: Emeka Dill MD Sedation:: See RN records Procedure:: The gastroscope was gently passed through the incisoral orifice into the oral cavity and under direct visualization the esophagus was intubated. The endoscope was passed down the esophagus, through the stomach, and into the duodenum. Color, texture, mucosa, and anatomy of the esophagus, stomach, and duodenum were carefully examined with the scope. Findings:: Oropharynx: normal Esophagus:Mild distal esophagitis EG Junction: Measured at 36 cm Cardia: Hiatal hernia 2 cm in size Fundus: normal Body: Gastritis. Biopsies obtained. Retained food and pills Antrum: Gastritis. Biopsies obtained Duodenal bulb: Retained food substance Duodenum (second and third portion): normal Recommendations:: Await pathology results Consider gastric emptying study for evaluation of nausea and vomiting Follow up with referring provider Complications:: None Estimated blood obtained (mL): 0
--- NOTE | 2022-01-21 13:37 | PC.NURSE ---
Osman Cunningham [employer]PERATIONS MANAGER ordered duoneb for patient
--- NOTE | 2022-01-21 16:27 | EXP.ANES.CKL ---
PFSH PFS Medical History Anxiety COPD (chronic obstructive pulmonary disease) CVA (cerebral vascular accident) Depressed Elevated parathyroid hormone Foot fracture Hip replacement planned History of diabetes mellitus HLD (hyperlipidemia) HTN (hypertension) Pacemaker Wrist fracture Surgical History H/O tubal ligation H/O: hysterectomy Hx of cholecystectomy Family History Other Family history of cancer Family history of myocardial infarction Social History Smoking Status: Current every day smoker tobacco type: cigarettes packs per day: 1 second hand exposure: Yes alcohol intake: never counseling provided: none substance use type: denies use current occupational status: disabled Travel in the last 8 weeks: None household members: spouse and family housing: house caffeine: Yes [facility] Anesthesia Checklist Patient Identification Patient Identification: Arm Band and Family Structural Data Admitted From: Home Planned Operative Procedure/s: EGD Consent for Planned Operative Procedure(s) Verified: Yes Verified Documents: Surgical Consent and History and Physical NPO Status Verified Time NPO: 00:00 Airway Assessment C-Spine Mobility Assessed: Yes TMJ Mobility Assessed: Yes Neurological Assessment Level of Consciousness: Awake, Alert, Appropriate and Follows Commands Hx Seizures: No Numbness or tingling in extremities: No Anesthesia Plan Anesthesia Risk discussed: Yes ASA Class: III Anesthesia Type: MAC Preoperative Comments Pre-Operative Comments: Pacemaker, Borderline diabetes, COPD.
== END 2022-01-21 14:02 | disposition home or self-care (01) ==
PROVIDERS: PCP Emergency Medicine; Visit Provider Internal Medicine
PROC: 0DJ08ZZ Inspection of Upper Intestinal Tract, Via Natural or Artificial Opening Endoscopic (ICD-10-PCS; CPT 43235; principal; 2022-01-21 13:30)
DX: R11.2 Nausea with vomiting, unspecified (principal); K20.90 Esophagitis, unspecified without bleeding; K29.70 Gastritis, unspecified, without bleeding; F17.210 Nicotine dependence, cigarettes, uncomplicated; Z79.899 Other long term (current) drug therapy; K44.9 Diaphragmatic hernia without obstruction or gangrene
CPT/HCPCS: 43239; 82962; 88305; 94640